=== PATIENT | male | born 1955 | race Caucasian/White ===

== ENCOUNTER → 2018-01-09 | Outpatient (CLI) | payer BC ==
[2018-01-09 09:30] LABS: HEMATOCRIT 39.6 % (42-52); HEMOGLOBIN 13.2 g/dL (14.0-18.0); MEAN CORPUSCULAR HEMOGLOBIN 28.3 pg (25-34); MEAN CORPUSCULAR HGB CONC 33.3 g/dl (32-36); MEAN PLATELET VOLUME 11.5 fL (7.4-10.4); PLATELET COUNT 194 K/uL (130-400); RED CELL DISTRIBUTION WIDTH CV 13.7 % (11.5-14.5); RED CELL DISTRIBUTION WIDTH SD 42.3 fL (36.4-46.3); WHITE BLOOD COUNT 4.48 K/uL (4.8-10.8)
[2018-01-09 09:58] LABS: ALBUMIN 3.6 gm/dl (3.4-5.0); ALKALINE PHOSPHATASE 38 U/L (45-117); ALT/SGPT 28 U/L (12-78); AST/SGOT 24 U/L (15-37); BLOOD UREA NITROGEN 13 mg/dl (7-18); CALCIUM 8.4 mg/dl (8.5-10.1); CARBON DIOXIDE 27 mmol/L (21-32); CHOLESTEROL 205 mg/dl (0-200); CREATININE 0.87 mg/dl (0.60-1.40); GLUCOSE 99 mg/dl (70-99); LDL CHOLESTEROL (DIRECT) 140 mg/dl; POTASSIUM 4.3 mmol/L (3.5-5.1); SODIUM 139 mmol/L (136-145); TOTAL PROTEIN 6.8 gm/dl (6.4-8.2)
== END | disposition home or self-care (01) ==
LOC: C.LAB 06:45
PROVIDERS: ATTEND Physician Assistant Medical
DX: C61 Malignant neoplasm of prostate (principal); C79.51 Secondary malignant neoplasm of bone; K22.719 Barrett's esophagus with dysplasia, unspecified; Z13.220 Encounter for screening for lipoid disorders

== ENCOUNTER 2020-10-03 20:04 | Inpatient (IN) ==
[2020-10-03] MEDS ORDERED: SODIUM CHLORIDE 0.9% 1000ML 1,000 ML IV STA (20:35)
[2020-10-03 21:28] LABS: Basophils # (auto) 0.01 K/uL (0-0.2); Basophils % (auto) 0.3 %; Eosinophils # (auto) 0.03 K/uL (0-0.5); Eosinophils % (auto) 0.9 %; Hematocrit (blood only) 28.8 % (42-52); Hemoglobin 9.4 g/dL (14.0-18.0); Immature Granulocytes # (auto) 0.02 K/uL (0.00-0.02); Immature Granulocytes % (auto) 0.6 %; Lymphocytes # (auto) 0.36 K/uL (1.2-3.4); Lymphocytes % (auto) 11.1 %; Mean Corpuscular Hemoglobin 29.2 pg (25-34); Mean Corpuscular Hgb Conc 32.6 g/dL (32-36); Mean Corpuscular Volume 89.4 fL (80-100); Mean Platelet Volume 8.6 fL (7.4-10.4); Monocytes # (auto) 0.61 K/uL (0.11-0.59); Monocytes % (auto) 18.9 %; Neutrophils % (auto) 68.2 %; Platelet Count 106 K/uL (130-400); RDW Coefficient of Variation 19.2 % (11.5-14.5); RDW Standard Deviation 63.6 fL (36.4-46.3); Red Blood Count 3.22 M/uL (4.7-6.1); White Blood Count 3.23 K/uL (4.8-10.8)
[2020-10-03 21:42] LABS: Alanine Aminotransferase 36 U/L (12-78); Albumin Level 2.6 gm/dl (3.4-5.0); Aspartate Aminotransferase 504 U/L (15-37); BUN Creatinine Ratio 22.9 (10-20); Blood Urea Nitrogen 14 mg/dl (7-18); Calcium 8.5 mg/dl (8.5-10.1); Carbon Dioxide 25 mmol/L (21-32); Chloride 103 mmol/L (98-107); Est GFR (African American) 124.9; Est GFR (Non-African American) 107.7; Glucose 112 mg/dl (70-99); Potassium 3.9 mmol/L (3.5-5.1); Sodium 134 mmol/L (136-145)
[2020-10-03 21:47] LABS: Albumin Globulin Ratio 0.7 (0.9-2); Alkaline Phosphatase 933 U/L (45-117); Bilirubin,Total 0.9 mg/dl (0.2-1); Globulin 3.5 gm/dl (2.5-4.0); Total Protein 6.1 gm/dl (6.4-8.2); Troponin I < 0.015 ng/ml (0-0.045)
[2020-10-03 22:10] LABS: Influenza A virus by PCR Negative (Neg); Influenza B virus by PCR Negative (Neg); RSV by PCR Negative (Neg); SARS CoV2 RNA(COVID-19) InHosp NEGATIVE (Negative)
[2020-10-03] MEDS ORDERED: OPTIRAY 320 150ml IV ONE (22:24)
[2020-10-03] MEDS ORDERED: KETOROLAC TROMETHAMINE 15 MG/ML VIAL IV ONE (22:54)
[2020-10-03] MEDS ORDERED: PIPERACILLIN/TAZOBACTAM 4.5 GM/120 ML BAG IV ONE (22:58)
[2020-10-03] MEDS ORDERED: PIPERACILL/TAZOBAC CONSULT ACTIVE PRN (22:58)
--- NOTE | 2020-10-04 02:09 | Emergency Department Note ---
History of Present Illness General Chief complaint: Fever Stated complaint: FEVER, DENTAL PAIN Time Seen by Provider: 10/03/20 20:33 Source: patient, family (At the bedside) and RN notes reviewed Mode of arrival: ambulatory Limitations: no limitations History of Present Illness Provider complaint: Fever, metastatic prostate cancer, jaw pain Maximum Pain Intensity: 5 This patient is a 65-year-old male who presents emergency department with complaints of fever. He states he noticed some mild discomfort in the left jaw where he has some chronic issues related to a tooth extraction and bony necrosis after chemotherapy. He is on chronic amoxicillin for infection in this area. Patient states he had a temperature of 101.5 degrees tonight. He did receive his Covid vaccines several weeks ago. He denies any known Covid exposures. He denies any shortness of breath, chest pain, cough. He admits to some occasional diarrhea. Home Medications Medication Instructions Recorded Confirmed Type gabapentin 100 mg PO TID 08/13/20 10/03/20 History lorazepam 1 mg PO HS PRN 08/13/20 10/03/20 History oxycodone 5 mg PO Q8H PRN 08/13/20 10/03/20 History Orgovyx 120 mg PO QPM 10/03/20 10/03/20 History ferrous sulfate 325 mg PO QPM 10/03/20 10/03/20 History folic acid 400 mcg PO QPM 10/03/20 10/03/20 History vitamin W80-patbj acid 1 tab PO QPM 10/03/20 10/03/20 History amoxicillin-pot clavulanate 1 tab PO BIDM 7 Days #14 tab 10/06/20 Rx [Augmentin] Allergies Allergy/AdvReac Type Severity Reaction Status Date / Time No Known Allergies Allergy Unverified 10/03/20 20:32 Past Med/Surg History Medical History (Updated 10/04/20 @ 03:46 by Burke Rincon MD) 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 and A total of 10 systems reviewed and were otherwise negative Physical Exam Vital Signs Vital Signs - 24 hr 10/03/20 20:06 10/03/20 22:05 10/04/20 00:00 Temperature 36.6 C 36.6 C Temperature Source Temporal Artery Scan Temporal Artery Scan Pulse Rate 102 H Pulse Rate [Apical] 97 H 95 H Pulse Rhythm [Apical] Regular Pulse Strength [Apical] Normal Respiratory Rate 18 18 18 Respiratory Effort / Characteristics Non-Labored Non-Labored Respiratory Depth Normal Normal Blood Pressure 98/59 L Blood Pressure [Right Arm] 122/55 L 111/65 Blood Pressure Mean 72 Blood Pressure Mean [Right Arm] 77 80 Blood Pressure Position [Right Arm] Pulse Oximetry 96 96 95 Oxygen Delivery Method Room Air Room Air Sepsis Recent Fever Within 48 Hours Yes Sepsis New/Unexplained Change in Mental Status No Sepsis Action Taken by Nursing No Action Required 10/04/20 02:00 10/04/20 02:09 Temperature 37.7 C H Temperature Source Oral Pulse Rate Pulse Rate [Apical] 92 H 97 H Pulse Rhythm [Apical] Pulse Strength [Apical] Respiratory Rate 18 Respiratory Effort / Characteristics Non-Labored Respiratory Depth Normal Blood Pressure Blood Pressure [Right Arm] 118/69 111/65 Blood Pressure Mean Blood Pressure Mean [Right Arm] 85 80 Blood Pressure Position [Right Arm] Lying Pulse Oximetry 99 93 Oxygen Delivery Method Room Air Sepsis Recent Fever Within 48 Hours Sepsis New/Unexplained Change in Mental Status Sepsis Action Taken by Nursing Vital signs reviewed. General: Chronically ill-appearing 65 yo male in no significant distress. HEENT: No scleral icterus, PERRLA, neck supple. Atraumatic. Cardiovascular: Regular rate and rhythm, no extra sounds. Pulmonary: Clear to auscultation bilaterally, normal work of breathing. Abdomen: Soft, nontender, nondistended, positive bowel sounds. Musculoskeletal: Atraumatic, no peripheral edema. Neurologic: Patient awake alert and oriented x 3 Skin: Warm, dry, no rash Course Administered Medications Discontinued Medications Acetaminophen (Acetaminophen 325 Mg Tab) 650 mg PO Q4H PRN PRN Reason: pain/fever Stop: 11/03/20 04:14 Last Admin: 10/06/20 14:22 Dose: 650 mg Documented by: [id number] Admin: 10/06/20 09:20 Dose: 650 mg Documented by: [id number] Admin: 10/06/20 04:43 Dose: 650 mg Documented by: [id number] Admin: 10/05/20 22:19 Dose: 650 mg Documented by: [id number] Admin: 10/05/20 15:21 Dose: 650 mg Documented by: [id number] Admin: 10/05/20 06:21 Dose: 650 mg Documented by: [id number] Admin: 10/04/20 21:22 Dose: 650 mg Documented by: [id number] Admin: 10/04/20 14:53 Dose: 650 mg Documented by: [id number] Admin: 10/04/20 05:11 Dose: 650 mg Documented by: [id number] Amoxicillin/Clavulanate Potassium (Amoxicillin/Clavulanate 875 Mg Tab) 1 tab PO BIDM JAYASHREE; Protocol Stop: 11/16/20 16:59 Last Admin: 10/06/20 16:03 Dose: 1 tab Documented by: [id number] Admin: 10/06/20 08:06 Dose: 1 tab Documented by: [id number] Admin: 10/05/20 17:56 Dose: 1 tab Documented by: [id number] Famotidine (Famotidine 20mg/5ml Iv Push) Confirm Administered Dose 20 mg IV .STK-MED ONE Stop: 10/04/20 04:00 Last Admin: 10/04/20 04:05 Dose: 20 mg Documented by: [id number] Ferrous Sulfate (Ferrous Sulfate 325 Mg Tab) 325 mg PO QPM [facility] Stop: 11/03/20 20:59 Last Admin: 10/05/20 19:57 Dose: 325 mg Documented by: [id number] Admin: 10/04/20 19:29 Dose: 325 mg Documented by: [id number] Folic Acid (Folic Acid 400 Mcg Tab) 400 mcg PO QPM [facility] Stop: 11/03/20 20:59 Last Admin: 10/05/20 19:57 Dose: 400 mcg Documented by: [id number] Admin: 10/04/20 19:29 Dose: 400 mcg Documented by: [id number] Gabapentin (Gabapentin 100 Mg Cap) 100 mg PO TID [facility] Stop: 11/03/20 08:59 Last Admin: 10/06/20 12:59 Dose: 100 mg Documented by: [id number] Admin: 10/06/20 09:16 Dose: 100 mg Documented by: [id number] Admin: 10/05/20 19:57 Dose: 100 mg Documented by: [id number] Admin: 10/05/20 16:04 Dose: 100 mg Documented by: [id number] Admin: 10/05/20 08:51 Dose: 100 mg Documented by: [id number] Admin: 10/04/20 19:29 Dose: 100 mg Documented by: [id number] Admin: 10/04/20 14:52 Dose: 100 mg Documented by: [id number] Admin: 10/04/20 09:20 Dose: 100 mg Documented by: [id number] Sodium Chloride (Nss 1000ml) 1,000 mls @ 999 mls/hr IV .Q1H1M STA Stop: 10/03/20 21:35 Last Infusion: 10/03/20 22:46 Dose: 0 mls/hr Documented by: [id number] Admin: 10/03/20 21:23 Dose: 999 mls/hr Documented by: [id number] Piperacillin Sod/Tazobactam Sod (Zosyn) 4.5 gm in 120 mls @ 240 mls/hr IV NOW ONE Stop: 10/03/20 23:27 Last Infusion: 10/03/20 23:48 Dose: 0 mls/hr Documented by: [id number] Admin: 10/03/20 23:06 Dose: 240 mls/hr Documented by: [id number] Famotidine 20 mg/ Syringe 5 mls @ 2.5 mls/min IV Q12H JAYASHREE Stop: 11/03/20 03:59 Last Admin: 10/06/20 16:03 Dose: 2.5 mls/min Documented by: [id number] Admin: 10/06/20 04:43 Dose: 2.5 mls/min Documented by: [id number] Admin: 10/05/20 16:04 Dose: 2.5 mls/min Documented by: [id number] Admin: 10/05/20 04:49 Dose: 2.5 mls/min Documented by: [id number] Admin: 10/04/20 16:40 Dose: 2.5 mls/min Documented by: [id number] Admin: 10/04/20 04:05 Dose: 2.5 mls/min Documented by: [id number] Piperacillin Sod/Tazobactam (Sod 3.375 gm/ Dextrose) 115 mls @ 30 mls/hr IV Q8H JAYASHREE; Protocol Stop: 10/11/20 04:29 Last Infusion: 10/05/20 15:55 Dose: 0 mls/hr Documented by: [id number] Admin: 10/05/20 13:46 Dose: 30 mls/hr Documented by: [id number] Infusion: 10/05/20 08:45 Dose: 0 mls/hr Documented by: [id number] Admin: 10/05/20 04:49 Dose: 30 mls/hr Documented by: [id number] Infusion: 10/05/20 00:29 Dose: 0 mls/hr Documented by: [id number] Admin: 10/04/20 19:23 Dose: 30 mls/hr Documented by: [id number] Infusion: 10/04/20 16:14 Dose: 0 mls/hr Documented by: [id number] Admin: 10/04/20 12:03 Dose: 30 mls/hr Documented by: [id number] Infusion: 10/04/20 09:19 Dose: 0 mls/hr Documented by: [id number] Admin: 10/04/20 05:06 Dose: 30 mls/hr Documented by: [id number] Vancomycin HCl 1,500 mg/ (Sodium Chloride) 530 mls @ 200 mls/hr IV ONE ONE Stop: 10/04/20 07:38 Last Infusion: 10/04/20 08:04 Dose: 0 mls/hr Documented by: [id number] Admin: 10/04/20 05:06 Dose: 200 mls/hr Documented by: [id number] Vancomycin HCl 1,000 mg/ (Sodium Chloride) 270 mls @ 200 mls/hr IV Q8H JAYASHREE Stop: 10/11/20 13:59 Last Infusion: 10/05/20 15:55 Dose: 0 mls/hr Documented by: [id number] Admin: 10/05/20 14:54 Dose: 200 mls/hr Documented by: [id number] Infusion: 10/05/20 06:29 Dose: 0 mls/hr Documented by: [id number] Admin: 10/05/20 04:59 Dose: 200 mls/hr Documented by: [id number] Infusion: 10/04/20 23:23 Dose: 0 mls/hr Documented by: [id number] Infusion: 10/04/20 22:54 Dose: 0 mls/hr Documented by: [id number] Admin: 10/04/20 21:23 Dose: 200 mls/hr Documented by: [id number] Infusion: 10/04/20 16:15 Dose: 0 mls/hr Documented by: [id number] Admin: 10/04/20 14:52 Dose: 200 mls/hr Documented by: [id number] Sincalide 1.53 mcg/ Sodium (Chloride) 101.53 mls @ 200 mls/hr IV TODAY@1400 JAYASHREE Stop: 10/04/20 14:31 Last Admin: 10/04/20 14:31 Dose: Not Given Documented by: [id number] Lactated Ringer's (Lr) 1,000 mls @ 250 mls/hr IV .Q4H JAYASHREE Stop: 10/05/20 12:59 Last Infusion: 10/05/20 15:49 Dose: 0 mls/hr Documented by: [id number] Infusion: 10/05/20 14:00 Dose: 250 mls/hr Documented by: [id number] Infusion: 10/05/20 13:47 Dose: 0 mls/hr Documented by: [id number] Admin: 10/05/20 10:37 Dose: 250 mls/hr Documented by: [id number] Ioversol (Optiray 320 150ml) 88 ml IV ONCE ONE Stop: 10/03/20 22:25 Last Admin: 10/03/20 22:24 Dose: 88 ml Documented by: [id number] Ketorolac Tromethamine (Ketorolac Tromethamine 15 Mg/Ml Vial) 10 mg IV NOW ONE Stop: 10/03/20 22:55 Last Admin: 10/03/20 23:07 Dose: 10 mg Documented by: [id number] Lorazepam (Lorazepam 1 Mg Tab) 1 mg PO HS PRN PRN Reason: appetite Stop: 11/03/20 04:20 Last Admin: 10/05/20 22:19 Dose: 1 mg Documented by: [id number] Admin: 10/04/20 14:59 Dose: 1 mg Documented by: [id number] Miscellaneous (Orgovyx~Order Awaiting Action) 1 ea N/A QS JAYASHREE Stop: 11/03/20 07:59 Last Admin: 10/06/20 15:46 Dose: Not Given Documented by: [id number] Admin: 10/06/20 08:02 Dose: Not Given Documented by: [id number] Admin: 10/05/20 23:10 Dose: Not Given Documented by: [id number] Admin: 10/05/20 15:59 Dose: Not Given Documented by: [id number] Admin: 10/05/20 07:39 Dose: Not Given Documented by: [id number] Admin: 10/05/20 00:28 Dose: Not Given Documented by: [id number] Admin: 10/04/20 14:54 Dose: Not Given Documented by: [id number] Admin: 10/04/20 08:04 Dose: Not Given Documented by: [id number] Morphine Sulfate (Morphine Sulfate 4 Mg/Ml 1 Ml Carp\Vial) 4 mg IV HS PRN PRN Reason: Pain Stop: 10/18/20 17:07 Last Admin: 10/05/20 01:42 Dose: 4 mg Documented by: [id number] Oxycodone HCl (Oxycodone Hcl Ir 5 Mg Tab (Immediate Release)) 5 mg PO Q8H PRN PRN Reason: Moderate Pain Stop: 10/18/20 04:21 Last Admin: 10/05/20 15:22 Dose: 5 mg Documented by: [id number] Admin: 10/05/20 06:20 Dose: 5 mg Documented by: [id number] Admin: 10/04/20 14:52 Dose: 5 mg Documented by: [id number] Admin: 10/04/20 04:54 Dose: 5 mg Documented by: [id number] Oxycodone HCl (Oxycodone Hcl Ir 5 Mg Tab (Immediate Release)) 10 mg PO Q6H PRN PRN Reason: Moderate Pain Stop: 10/18/20 04:21 Last Admin: 10/06/20 15:46 Dose: 10 mg Documented by: [id number] Admin: 10/06/20 09:19 Dose: 10 mg Documented by: [id number] Admin: 10/06/20 01:58 Dose: 10 mg Documented by: [id number] Admin: 10/05/20 19:56 Dose: 10 mg Documented by: [id number] Vitamin B Complex (Vitamin B Complex Tab) 1 tab PO QPM JAYASHREE Stop: 11/03/20 20:59 Last Admin: 10/05/20 19:57 Dose: 1 tab Documented by: [id number] Admin: 10/04/20 19:29 Dose: 1 tab Documented by: [id number] Medical Decision Making Differential Diagnosis .dd Laboratory Data Attestation: I reviewed the patient's lab results. Result diagrams: 10/06/20 06:35 10/06/20 06:35 Lab Results 10/03/20 10/03/20 10/03/20 Range/Units 21:05 21:05 21:12 WBC 3.23 L (4.8-10.8) K/uL RBC 3.22 L (4.7-6.1) M/uL Hgb 9.4 L (14.0-18.0) g/dL Hct 28.8 L (42-52) % MCV 89.4 (80-100) fL MCH 29.2 (25-34) pg MCHC 32.6 (32-36) g/dL RDW Std Deviation 63.6 H (36.4-46.3) fL RDW Coeff of Nadira 19.2 H (11.5-14.5) % Plt Count 106 L (130-400) K/uL MPV 8.6 (7.4-10.4) fL Immature Gran % (Auto) 0.6 % Neut % (Auto) 68.2 % Lymph % (Auto) 11.1 % Colbert % (Auto) 18.9 % Eos % (Auto) 0.9 % Baso % (Auto) 0.3 % Neut # (Auto) 2.20 (1.4-6.5) K/uL Lymph # (Auto) 0.36 L (1.2-3.4) K/uL Colbert # (Auto) 0.61 H (0.11-0.59) K/uL Eos # (Auto) 0.03 (0-0.5) K/uL Baso # (Auto) 0.01 (0-0.2) K/uL Immature Gran # (Auto) 0.02 (0.00-0.02) K/uL Sodium (136-145) mmol/L Potassium (3.5-5.1) mmol/L Chloride (98-107) mmol/L Carbon Dioxide (21-32) mmol/L Anion Gap (3-11) BUN (7-18) mg/dl Creatinine (0.6-1.4) mg/dl Est Cr Clr Drug Dosing ml/min Est GFR ( Amer) Est GFR (Non-Af Amer) BUN/Creatinine Ratio (10-20) Glucose (70-99) mg/dl Lactate (0.4-2.0) mmol/L Calcium (8.5-10.1) mg/dl Total Bilirubin (0.2-1) mg/dl AST (15-37) U/L ALT (12-78) U/L Alkaline Phosphatase (45-117) U/L Troponin I (0-0.045) ng/ml Total Protein (6.4-8.2) gm/dl Albumin (3.4-5.0) gm/dl Globulin (2.5-4.0) gm/dl Albumin/Globulin Ratio (0.9-2) COVID-19 Eval Order CovFluRsv at [facility] SARS-CoV-2 (PCR) NEGATIVE (Negative) Influenza Type A (PCR) Negative (Neg) Influenza Type B (PCR) Negative (Neg) RSV (RT-PCR) Negative (Neg) 10/03/20 10/03/20 Range/Units 21:12 21:12 WBC (4.8-10.8) K/uL RBC (4.7-6.1) M/uL Hgb (14.0-18.0) g/dL Hct (42-52) % MCV (80-100) fL MCH (25-34) pg MCHC (32-36) g/dL RDW Std Deviation (36.4-46.3) fL RDW Coeff of Nadira (11.5-14.5) % Plt Count (130-400) K/uL MPV (7.4-10.4) fL Immature Gran % (Auto) % Neut % (Auto) % Lymph % (Auto) % Colbert % (Auto) % Eos % (Auto) % Baso % (Auto) % Neut # (Auto) (1.4-6.5) K/uL Lymph # (Auto) (1.2-3.4) K/uL Colbert # (Auto) (0.11-0.59) K/uL Eos # (Auto) (0-0.5) K/uL Baso # (Auto) (0-0.2) K/uL Immature Gran # (Auto) (0.00-0.02) K/uL Sodium 134 L (136-145) mmol/L Potassium 3.9 (3.5-5.1) mmol/L Chloride 103 (98-107) mmol/L Carbon Dioxide 25 (21-32) mmol/L Anion Gap 7.0 (3-11) BUN 14 (7-18) mg/dl Creatinine 0.59 L (0.6-1.4) mg/dl Est Cr Clr Drug Dosing 124.0 ml/min Est GFR ( Amer) 124.9 Est GFR (Non-Af Amer) 107.7 BUN/Creatinine Ratio 22.9 H (10-20) Glucose 112 H (70-99) mg/dl Lactate 1.2 (0.4-2.0) mmol/L Calcium 8.5 (8.5-10.1) mg/dl Total Bilirubin 0.9 (0.2-1) mg/dl AST 504 H (15-37) U/L ALT 36 (12-78) U/L Alkaline Phosphatase 933 H (45-117) U/L Troponin I < 0.015 (0-0.045) ng/ml Total Protein 6.1 L (6.4-8.2) gm/dl Albumin 2.6 L (3.4-5.0) gm/dl Globulin 3.5 (2.5-4.0) gm/dl Albumin/Globulin Ratio 0.7 L (0.9-2) COVID-19 Eval Order SARS-CoV-2 (PCR) (Negative) Influenza Type A (PCR) (Neg) Influenza Type B (PCR) (Neg) RSV (RT-PCR) (Neg) Imaging Data Radiologist's Impression: XR chest 1V portable HISTORY: Fever COMPARISON: None. FINDINGS: Diffuse bilateral interstitial thickening/airspace opacities. Small bilateral pleural effusions.. There are low lung volumes. The heart is mildly enlarged. No pneumothorax. The bones appear diffusely sclerotic consistent with osteoblastic metastatic disease. IMPRESSION: 1. Cardiomegaly, small bilateral pleural effusions, and diffuse interstitial thickening. This favors pulmonary edema. An atypical pneumonia could also a similar appearance. 2. Diffuse osteoblastic metastatic disease. ACT 112: Negative or not required by law. Electronically signed by: Alexy Cook M.D. 10/04/2020 7:39 AM Dictated: 10/04/20 [id number]: 10/04/20737 CT SCAN OF THE FACIAL BONES WITH IV CONTRAST CLINICAL HISTORY: Left facial swelling. Chronic mandibular infection. COMPARISON STUDY: No priors. TECHNIQUE: High-resolution CT scan of the facial bones is performed following the IV administration of 88 cc of Optiray 320. Images are reviewed in the axial, sagittal, and coronal planes. IV contrast was administered without complication. A dose lowering technique was utilized adhering to the principles of ALARA. CT DOSE: 178.08 mGy.cm FINDINGS: The skeletal structures are heterogeneously osteopenic. The appearance suggests widespread osseous metastatic disease. There is an age indeterminant fracture/fragmentation through the left body of the mandible. This involves the socket of the most posterior mandibular molar. There is mild overlying soft tissue edema. No organized fluid collection is seen to suggest abscess. The bony orbits are intact and the orbital contents are within normal limits. The zygomatic arches, nasal bones, and pterygoid plates are preserved. The maxilla is intact. The temporomandibular joints are maintained. There are no layering blood products within the paranasal sinuses. Trace mucosal thickening is noted in the left frontal sinus. The remaining paranasal sinuses are clear. There are bilateral mastoid effusions, right larger than left. The visualized calvarium and upper cervical spine are maintained. Partially imaged brain parenchyma is within normal limits. IMPRESSION: 1. The skeletal structures are markedly heterogeneous, and the appearance suggests widespread osseous metastatic disease. Correlate with the patient's oncological history. 2. There is an age indeterminant fracture/fragmentation involving the left body of the mandible as above. This may represent a nonunited fracture. Superimposed infection would be impossible to exclude and clinical correlation will be essential. 3. There is only mild overlying soft tissue edema. No organized fluid collection is seen to suggest abscess. ACT 112: Negative or not required by law. Electronically signed by: Pa Ewing M.D. 10/04/2020 8:02 AM Dictated: 10/04/20 0756Transcribed: 10/04/[address] SCAN OF THE CHEST WITHOUT IV CONTRAST CLINICAL HISTORY: Abnormal chest x-ray. Pulmonary consolidation. Reported history of prostate cancer. COMPARISON STUDY: Chest x-ray dated 10/03/2020. TECHNIQUE: CT scan of the thorax was performed from the thoracic inlet to the upper abdomen. Images are reviewed in the axial, sagittal, and coronal planes. IV contrast was not administered for this examination as per the referring clinician. A dose lowering technique was utilized adhering to the principles of ALARA. CT DOSE: 422.86 mGy.cm FINDINGS: Thyroid: Imaged portions of the thyroid gland are normal in size and attenuation. Thoracic aorta: The thoracic aorta is normal in caliber and demonstrates bovine variant arch anatomy. Heart: The heart is mildly enlarged noting trace pericardial effusion. Lungs and pleural spaces: Evaluation of the lung parenchyma is compromised by motion artifact. There are small to moderate layering pleural effusions with associated atelectasis. Intralobular septal thickening is noted throughout the upper lobes. The trachea and central airways are clear. A 5 mm pleural-based nodule is seen in the right middle lobe along the minor fissure on image #181. A 5 mm right upper lobe nodular density is seen on image #87, and a 3 mm left lower lobe nodular density is seen on image #142.. Mediastinum: There are enlarged mediastinal lymph nodes. A pretracheal node measures 1.7 cm in short axis. A precarinal node measures 2.1 cm in short axis, and a subcarinal node measures 2.6 cm short axis. Anna: Not well assessed without IV contrast. Axillae: There is no axillary lymphadenopathy. Upper abdomen: There is a small hiatal hernia. The spleen is enlarged measuring over 14 cm in length. A subcentimeter cyst is incidentally noted in the left lobe of the liver. Skeletal structures: The skeletal structures are heterogeneously osteopenic. There is evidence of diffuse osteoblastic metastatic disease. Degenerative change and hyperkyphosis are noted in the thoracic spine. Question pathologic fracture of the right proximal humerus. There are pathologic left posterior rib fractures. IMPRESSION: 1. Cardiomegaly with evidence of congestive failure. 2. Small to moderate pleural effusions with bibasilar consolidation. This likely represents atelectasis and clinical correlation will be required. 3. Scattered pulmonary nodular densities measure up to 5 mm. See above. 4. There is evidence of diffuse osteoblastic metastatic disease. 5. Question pathologic fracture of the right proximal humerus. Pathologic fractures are also seen involving left posterior ribs. 6. Mediastinal lymphadenopathy. 7. Splenomegaly. 8. Additional findings as above. ACT 112: Negative or not required by law. Electronically signed by: Pa Ewing M.D. 10/04/2020 8:11 AM Dictated: 10/04/20802Transcribed: 10/04/20802 ECG Data Attestation: I personally reviewed and interpreted this ECG as follows: Indication: + other (fever) Rate (beats per minute): 92 Rhythm: + sinus rhythm ECG Intervals/blocks: + Normal QRS and + Normal QT-c ECG [place]: + Normal ECG ST segments: + Nonspecific ST abnormalities ECG Findings: + PACs; no PVCs Blood Pressure Blood Pressure Findings: Normal blood pressure Blood Pressure Disposition: did not require urgent referral MDM Narrative This patient was evaluated and appeared to be in no significant distress. IV access was obtained and laboratory work was drawn. An order for cardiac monitoring was placed and the patient is noted to be in a sinus rhythm at 95 bpm. Chest x-ray was performed and reveals evidence of congestive changes with bilateral pleural effusion. Patient has no respiratory compromise and is lying on his back on room air without any hypoxia. Patient is afebrile with T-max of 37 7. Covid swab was obtained and is negative. Patient was given 10 mg of IV Toradol for pain as he asked for ibuprofen. He was hydrated with normal saline solution and after blood cultures were performed, was given IV Zosyn for empiric coverage. CT imaging of the face was performed due to the chronic left mandibular osteomyelitis, the study is read as above. There is no obvious fluid collection. CT imaging of the chest was performed and does confirm metastatic disease in the bony structures. There are bilateral pleural effusions which I would presume to be malignant etiology. Given the complex nature of the case, patient was discussed with the hospitalist, Dr. King for further evaluation and management. Patient and have expressed understanding and agree. Impression & Plan Fever, Prostate cancer metastatic to bone, Chronic osteomyelitis of mandible, Bilateral pleural effusion Discharge Plan Visit Data Chief Complaint: Fever Stated Complaint: FEVER, DENTAL PAIN ED Provider: Dhara Atkins Discharge Problem: Fever, Prostate cancer metastatic to bone, Chronic osteomyelitis of mandible, Bilateral pleural effusion Patient Disposition: Admitted As Inpatient Discharge Instructions Interventions: ED Discharge Assessment Last Done: 10/04/20 04:02 Discharge Problem: Fever Qualifiers: Fever type: due to other condition Qualified Code(s): R50.81 - Fever presenting with conditions classified elsewhere
--- NOTE | 2020-10-04 02:49 | History & Physical Report ---
Date of Service October 04, 2020 Assessment & Plan (1) Chronic osteomyelitis of mandible: Acute on chronic osteomyelitis of mandible on left side- Place on vancomycin IV and Zosyn IV Hold amoxicillin which she has been on for chronic prophylaxis Present on Admission?: Yes (2) Gallbladder anomaly: Patient complains of nausea, and is tender epigastrium and right upper quadrant on examination. He also takes ibuprofen 3 to 4 tablets a day, so may have an issue with gastritis and/or gastric ulcer. Gallbladder was noted to be distended on CT HIDA scan ordered to further evaluate Famotidine 20 mg IV every 12 hours N.p.o. except essential medications Present on Admission?: Yes (3) Bilateral pleural effusion: Likely metastatic. Patient is not symptomatic at this point. Could consult pulmonology for their opinion as to the utility of drainage. Present on Admission?: Yes (4) Retroperitoneal lymphadenopathy: Pelvic and retroperitoneal lymphadenopathy- Noted on CT, suggestive of malignancy Present on Admission?: Yes (5) Pelvic lymphadenopathy: See above Present on Admission?: Yes (6) Prostate cancer metastatic to bone: Continue outpatient regimen Follows with oncology out of town Present on Admission?: Yes (7) Herniated disc: History of Present Illness Chief Complaint: The patient presents to the emergency department with complaint of fever to a max of 101.5 F, acute on chronic left jaw discomfort and nausea. Primary Care Provider: Yehuda Carrera DO The patient is a 65-year-old male with a past medical history including metastatic prostate cancer, anxiety, neuropathy and vitamin B12 deficiency. He reports having a dental infection a few years ago in his left mandibular area, for which he is on amoxicillin chronically for infection suppression. He had been doing well with his jaw until the past 24 hours where he has developed a temperature and worsening pain. Allergies Allergy/AdvReac Type Severity Reaction Status Date / Time No Known Allergies Allergy Unverified 10/03/20 20:32 Home Medications Medication Instructions Recorded Confirmed Type gabapentin 100 mg PO TID 08/13/20 10/03/20 History lorazepam 1 mg PO HS PRN 08/13/20 10/03/20 History oxycodone 5 mg PO Q8H PRN 08/13/20 10/03/20 History ferrous sulfate 325 mg PO QPM 10/03/20 10/03/20 History folic acid 400 mcg PO QPM 10/03/20 10/03/20 History relugolix [Orgovyx] 120 mg PO QPM 10/03/20 10/03/20 History vitamin R55-vthze acid 1 tab PO QPM 10/03/20 10/03/20 History Past Med/Surg History Medical History (Updated 10/04/20 @ 03:46 by Burke Rincon MD) Herniated disc L2-L3 Prostate cancer metastatic to bone Right foot injury drained blood from foot Social History (Updated 10/04/20 @ 03:00 by Dhara Atkins MD) Smoking Status: Never smoker Hx Alcohol Use: Yes Hx Substance Use: No Preferred Language: Ecuadorean Communication Ability: Effective Beliefs That Will Affect Care: None Current Living Situation: Significant Other current occupational status: retired Other Information That Helps Us Care for You: No Feels Safe at Home: Yes Assistive Devices: None Review of Systems Review of Systems: The patient denies chest pain, palpitations, shortness of breath, dyspnea on exertion, cough, lower extremity swelling, sore throat, chills, sweats, weight change, vomiting, diarrhea , constipation, pelvic pain, blood in urine or stool, dysuria, urinary frequency or urgency, lightheadedness, dizziness, headache, memory loss, loss of consciousness, rash, abnormal bruising or bleeding, imbalance, focal or generalized weakness, numbness or tingling in arms or legs, generalized arthralgias or myalgias, back or neck pain, or night sweats. The review of systems is otherwise negative other than for that already noted above, and at least 10 systems have been reviewed. Physical Exam Physical Exam: The patient is awake, alert and oriented 3, well developed and well nourished, normocephalic and atraumatic, lying in bed and in no acute distress. HEENT--PERRL, EOMI, mucous membranes and oropharynx dry. Neck--supple. No JVD. No bruits. Thyroid normal, trachea midline, no adenopathy. Heart--normal S1 and S2. No murmurs, rubs or gallops. Lungs--clear bilaterally, no respiratory distress, no accessory muscle use. Abdomen--normal bowel sounds and soft. Tender epigastric and right upper quadrant areas. Nondistended, no hernias or masses, no organomegaly. Extremities--no cyanosis or clubbing. No edema. Dermatologic--normal skin turgor, normal color, no abnormal lymph nodes, no rash. Neurologic--cranial nerves II through XII grossly intact. Rheumatologic--normal range of motion. Psychiatric--normal affect. Results & Data Results & Data ([facility]) Vital Signs (Past 12 Hours) Vital Signs Temp Pulse Pulse Resp BP BP Pulse Ox 10/04/20 02:09 99.9 F H 97 H 111/65 93 10/04/20 02:00 92 H 18 118/69 99 10/04/20 00:00 95 H 18 111/65 95 10/03/20 22:05 97.9 F 97 H 18 122/55 L 96 10/03/20 20:06 97.9 F 102 H 18 98/59 L 96 Laboratory Results Laboratory Results WBC 3.23 K/uL (4.8-10.8) L 10/03/20 21:12 RBC 3.22 M/uL (4.7-6.1) L 10/03/20 21:12 Hgb 9.4 g/dL (14.0-18.0) L 10/03/20 21:12 Hct 28.8 % (42-52) L 10/03/20 21:12 MCV 89.4 fL (80-100) 10/03/20 21:12 MCH 29.2 pg (25-34) 10/03/20 21:12 MCHC 32.6 g/dL (32-36) 10/03/20 21:12 RDW Std Deviation 63.6 fL (36.4-46.3) H 10/03/20 21:12 RDW Coeff of Nadira 19.2 % (11.5-14.5) H 10/03/20 21:12 Plt Count 106 K/uL (130-400) L 10/03/20 21:12 MPV 8.6 fL (7.4-10.4) 10/03/20 21:12 Immature Gran % (Auto) 0.6 % 10/03/20 21:12 Neut % (Auto) 68.2 % 10/03/20 21:12 Lymph % (Auto) 11.1 % 10/03/20 21:12 Stephenson % (Auto) 18.9 % 10/03/20 21:12 Eos % (Auto) 0.9 % 10/03/20 21:12 Baso % (Auto) 0.3 % 10/03/20 21:12 Neut # (Auto) 2.20 K/uL (1.4-6.5) 10/03/20 21:12 Lymph # (Auto) 0.36 K/uL (1.2-3.4) L 10/03/20 21:12 Stephenson # (Auto) 0.61 K/uL (0.11-0.59) H 10/03/20 21:12 Eos # (Auto) 0.03 K/uL (0-0.5) 10/03/20 21:12 Baso # (Auto) 0.01 K/uL (0-0.2) 10/03/20 21:12 Immature Gran # (Auto) 0.02 K/uL (0.00-0.02) 10/03/20 21:12 Sodium 134 mmol/L (136-145) L 10/03/20 21:12 Potassium 3.9 mmol/L (3.5-5.1) 10/03/20 21:12 Chloride 103 mmol/L (98-107) 10/03/20 21:12 Carbon Dioxide 25 mmol/L (21-32) 10/03/20 21:12 Anion Gap 7.0 (3-11) 10/03/20 21:12 BUN 14 mg/dl (7-18) 10/03/20 21:12 Creatinine 0.59 mg/dl (0.6-1.4) L 10/03/20 21:12 Est Cr Clr Drug Dosing 124.0 ml/min 10/03/20 21:12 Est GFR ( Amer) 124.9 10/03/20 21:12 Est GFR (Non-Af Amer) 107.7 10/03/20 21:12 BUN/Creatinine Ratio 22.9 (10-20) H 10/03/20 21:12 Glucose 112 mg/dl (70-99) H 10/03/20 21:12 Lactate 1.2 mmol/L (0.4-2.0) 10/03/20 21:12 Calcium 8.5 mg/dl (8.5-10.1) 10/03/20 21:12 Total Bilirubin 0.9 mg/dl (0.2-1) 10/03/20 21:12 AST 504 U/L (15-37) H 10/03/20 21:12 ALT 36 U/L (12-78) 10/03/20 21:12 Alkaline Phosphatase 933 U/L (45-117) H 10/03/20 21:12 Troponin I < 0.015 ng/ml (0-0.045) 10/03/20 21:12 Total Protein 6.1 gm/dl (6.4-8.2) L 10/03/20 21:12 Albumin 2.6 gm/dl (3.4-5.0) L 10/03/20 21:12 Globulin 3.5 gm/dl (2.5-4.0) 10/03/20 21:12 Albumin/Globulin Ratio 0.7 (0.9-2) L 10/03/20 21:12 COVID-19 Eval Order CovFluRsv at [facility] 10/03/20 21:05 SARS-CoV-2 (PCR) NEGATIVE (Negative) 10/03/20 21:05 Influenza Type A (PCR) Negative (Neg) 10/03/20 21:05 Influenza Type B (PCR) Negative (Neg) 10/03/20 21:05 RSV (RT-PCR) Negative (Neg) 10/03/20 21:05 Diagnostic Findings [facility] Patient: HAILY CLAIRE (Male) : 59 Status: ER Date: 10/04/20 01:29 Room #: History: ABNORMAL LFT'S, NAUSEA, WEAKNESS Slices: [phone] Priors: Tech: Davon Cruz @ [phone] Exams: CT ABDOMEN & PELVIS Without Contrast Contrast: Accession Numbers: [id number] Preliminary Findings Only See Final Report For Complete Findings CT ABDOMEN & PELVIS Without Contrast: Pelvic and retroperitoneal lymphadenopathy measuring up to short axis of 1.6 cm, concerning for malignancy. Gallbladder is distended without a radiopaque gallstone. Mild splenomegaly. Unchanged moderate bilateral pleural effusions. Diffuse irregular appearance of the axial and proximal appendicular skeleton as seen on concurrent CT chest. Additional consideration is widely metastatic prostate cancer. No hydronephrosis. No small bowel obstruction. Small volume of free fluid in the pelvis. Normal appendix. 8 mm hypodensity in the left hepatic lobe too small to characterize further but statistically likely to represent a simple cyst. Radiologist: Travis Mack MD Study ready at 01:34 and initial results transmitted at 02:14 *This report constitutes a preliminary interpretation only. Non-acute findings felt to be unrelated to the clinical presentation may not be discussed in this report. The study will be interpreted and a final report will be generated by the local Radiologist the following shift. To reach the hospital radiology department call [phone]. If a discrepancy is found between the preliminary and final interpretations of this study, please notify us via our Client Portal at [email or web address] under QA Exams.You can also fax this report with a description of the discrepancy, or include the final report, to our daytime fax number [phone].If faxing, please indicate the severity of discrepancy using one of the following categories: [ ] 1 - Agree/Informational [ ] 2 - Unlikely to Affect Management [ ] 3 - Possible Eventual Change of Management [ ] 4 - Probable Immediate Change of Management For all other patient related information, please fax us at [phone]. [id number] Code Status & VTE Plan Code Status Full code VTE Prophylaxis Plan VTE Prophylaxis will be ordered: Yes PG Care Time/CCT Total # of Minutes Spent Total Time Spent with Patient: Total time spent is greater than 50% in coordination of care (as documented) at patient's floor/unit and/or counseling patient: Coding Level of Care Code 15510 Initial Inpt Care Lvl 3 Diagnoses Chronic osteomyelitis of mandible M27.2 Gallbladder anomaly Q44.1 Bilateral pleural effusion J90 Retroperitoneal lymphadenopathy R59.0 Pelvic lymphadenopathy R59.0 Prostate cancer metastatic to bone C61; C79.51 Herniated disc
[2020-10-04] MEDS ORDERED: FAMOTIDINE 20MG/5ML IV PUSH IV ONE (03:59)
[2020-10-04] MEDS: FAMOTIDINE 20 MG in SYRINGE 3 ML IV SCH ×2 (04:05→16:40)
[2020-10-04] MEDS ORDERED: VANCOMYCIN HCL 1,000 MG in SODIUM CHLORIDE 0.9% 250 ML IV SCH (04:15)
[2020-10-04] MEDS ORDERED: ONDANSETRON INJ 2 MG/ML 2 ML VIAL IV PRN (04:15)
[2020-10-04] MEDS ORDERED: VANCOMYCIN CONSULT ACTIVE PRN (04:15)
[2020-10-04] MEDS ORDERED: PIPERACILL/TAZOBAC CONSULT ACTIVE PRN (04:15)
[2020-10-04] MEDS: oxyCODONE HCL IR 5 MG TAB (IMMEDIATE RELEASE) PO PRN ×2 (04:54→14:52)
[2020-10-04] MEDS ORDERED: VANCOMYCIN HCL 1,500 MG in SODIUM CHLORIDE 0.9% 500 ML IV ONE (05:00)
[2020-10-04] MEDS: PIPERACILLIN/TAZOBACTAM 3.375 GM in DEXTROSE 5% 100 ML IV SCH ×3 (05:06→19:23)
[2020-10-04] MEDS: ACETAMINOPHEN 325 MG TAB PO PRN ×3 (05:11→21:22)
--- NOTE | 2020-10-04 07:41 | XRay Report ---
XR chest 1V portable HISTORY: Fever COMPARISON: None. FINDINGS: Diffuse bilateral interstitial thickening/airspace opacities. Small bilateral pleural effus ions.. There are low lung volumes. The heart is mildly enlarged. No pneumothorax. The bones appear di ffusely sclerotic consistent with osteoblastic metastatic disease. IMPRESSION: 1. Cardiomegaly, small bilateral pleural effusions, and diffuse interstitial thickening. This favors pulmonary edema. An atypical pneumonia could also a similar appearance. 2. Diffuse osteoblastic metastatic disease. ACT 112: Negative or not required by law. Electronically signed by: Alexy Cook M.D. 10/04/2020 7:39 AM
--- NOTE | 2020-10-04 07:57 | Medical Student Progress Note ---
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 L jaw pain suspect osteomyelitis - Acute on chronic. He was previously on amoxicillin. - CT face: age indeterminate fracture involving L body of mandible. Skeletal structures are markedly heterogeneous that suggest osseous metastatic disease. Mild overlying soft tissue edema. - Blood cx pending - continue Zosyn and Vancomyin - Talked with Devi from 's office: she confirmed that pt is theirs. Per 's recommendation, okay to discharge patient on Augmentin for 7 days. Pt already scheduled for in-office follow up on October 18, but their office will call patient via phone to check in earlier. RUQ pain - Given initial presentation of fever, RUQ, and labs suspected biliary etiology such as acalculous cholecystitis, fibrosis, obstruction, sphincter of oddi dysfunction - 10/03 labs: AST 504 and alk phosp 933 - 10/04 HIDA scan: no evidence of cystic duct obstruction - continue famotidine 20mg - Discussed that this could be due to irritation from rib cartilage and a manifestation of his metastatic cancer. He is eating well with no N/V. B/L pleural effusion - suspect chronic due restricted chest wall movement - 93% O2 on RA. Metastatic (Stage 4) Prostate cancer - pain meds: oxycodone 5mg PO PRN, Tylenol 650mg PO PRN - continue relugolix (GnRH antagonist) Neuropathy - continue gabapentin 100mg TID Vitamin B12 Deficiency - continue ferrous sulfate, folic acid, and vit B12 (2) Chronic osteomyelitis of mandible: (3) Bilateral pleural effusion: (4) Fever: Fever type: due to other condition Qualified Code(s): R50.81 - Fever presenting with conditions classified elsewhere (5) Retroperitoneal lymphadenopathy: (6) Pelvic lymphadenopathy: (7) Gallbladder anomaly: (8) Herniated disc: Admission and Anticipated Discharge Date Admission Date: October 04, 2020 Supervising Attestation I have separately interviewed and evaluated the patient. I have discussed the case in depth with Pedro Stiles and agree with her plan as documented with the following exceptions. 65-year-old male with past medical history of metastatic prostate cancer on chemotherapy and chronic osteomyelitis of the mandible presented for evaluation of fevers, chills, nausea vomiting and pain. It was thought that the majority of patient's symptoms were secondary to infection in his jaw, he was started on vancomycin and Zosyn. Additionally on presentation CT scan of abdomen pelvis demonstrated abnormality within the gallbladder and a follow-up HIDA scan was ordered. Patient was admitted to the medicine service and did well overnight. Today he reports significant improvement in all of his symptoms. Endorsing some increased pain in the evening prior to bed requesting medication for that General: No acute distress HEENT: Normocephalic atraumatic Cardiac: Regular rate and rhythm, 1/6 murmur, did not appreciate significant rubs or gallops, normal S1, normal S2, negative pedal edema, no calf tenderness Respiratory: Clear to auscultation bilaterally with symmetrical chest expansion did not appreciate significant wheezes, rales, rhonchi GI: Soft nontender nondistended, subjective right upper quadrant pain A/P #Chronic osteomyelitis of the jaw Longstanding history of, follows with Dr. Lizzeth ceballos as an outpatient. Contacted Devi rolando nurse and Dr. Rodriguez's office today she reviewed the case with him. He is recommending the patient be discharged on a 7-day course of Augmentin and they will follow up with him after discharge to determine appropriate follow-up. We will continue to monitor vital signs and fever curve #Pain Likely related to metastatic disease. Patient states pain is currently well controlled with the exception of bedtime. We will provide as needed 4 mg morphine nightly #Gallbladder anomaly Visualized on CT scan -HIDA scan negative, suspect related to underlying metastatic disease Deepak Johnson MD PGY-2 Attending attestation Pt seen and examined in concert with [facility]. Dr. Go Dillon. In agreement with the documented findings as noted in the resident documentation with any exceptions or additions as noted here. Significant improvement in presenting symptoms following abx use. On examination, S1/S2 nl RRR, 2/6 DESTINY. CTAB. Abd TTP at bilateral ribs, LLQ which are chronic, but no reproducible RUQ pain. BS+ve. Chronic osteomyelitis of the jaw in the setting of metastatic prostate cancer - consult OMFS for discussion of underlying need for further management. Continue current abx regimen and f/u cultures. Right upper quadrant abdominal pain - unable to tolerate MRI of the abdomen 2/2 pain, but HIDA without suspicious lesion appreciated. With resolved symptoms, more likely osteomyelitis and managed as above. Else see student/resident documentation as noted. Subjective Pt presented to ED yesterday with fever and N/V. Prior to this, he reports feeling tired and run down for 3 days which he correlates to getting his camper ready for trip to [place]. Yesterday morning he started to feel nauseous after taking oxycodone prior to breakfast. He vomited a couple of time and starting feeling feverish with home temperature of 101. In the ED, his temperature was 99.8F and found to have pain in RUQ only with palpation and imaging showing b/l pleural effusion. He's never had this abdominal pain before and states that he ddidn't even notice it until palpation. Today, he is not feeling feverous. He has been NPO and is hungry. No jaw pain or swelling. No facial tenderness. Able to open jaw. No dysphagia. No DUFFY. He last saw his orofacial surgeon 1month ago and was put on amoxicillin. No abdominal pain. + constipation. Reports chronic SOB associated with restricted chest wall movement, back and neck pain No cough or wheezing. Reports losing over 40lbs within last year. Review of Systems Review of Systems: All systems reviewed & are unremarkable except as noted in HPI & below Physical Exam Physical Exam: General: AOx3. Thin male. Sitting comfortably in bed. Cooperative. HEENT: EOMI. Oral mucosa pink, uvula midline. Pharynx without exudate. No tenderness or deviation at TMJ. Popping elicit at TMJ when asked to open jaw. L oralExposed bone, no erythema, no abscess . Cervical LAD. Lungs: decrease breath sounds with late inspiratory crackles. Decrease inspiratory and expiratory. GI: Focal tenderness with palpation at R flank. No rebound tenderness. Negative Lucas sign. Results & Data ([facility]) Vital Signs (Past 12 Hours) Vital Signs Temp Pulse Pulse Resp BP BP Pulse Ox 10/04/20 04:15 36.5 C 20 124/73 96 10/04/20 02:09 37.7 C H 97 H 111/65 93 10/04/20 02:00 92 H 18 118/69 99 10/04/20 00:00 95 H 18 111/65 95 10/03/20 22:05 36.6 C 97 H 18 122/55 L 96 10/03/20 20:06 36.6 C 102 H 18 98/59 L 96 Resident Activity Tracking Resident Involvement: Resident Care Provided Care Provided: Adult Hospital Medicine
--- NOTE | 2020-10-04 08:00 | Pharmacy Report ---
Pharmacy Abx Initial Consult - Date of Service October 04, 2020 - Pharmacy Dosing Scope Date of Consult: 10/03/20 Consultation requested by: Dr. Rincon Pharmacy is consulted to initiate Vancomycin and Zosyn IV dosing therapy, order appropriate labs and adjust drug dose/frequency. - Subjective The patient is a 65 year old M admitted on 10/04/20 02:48. - Objective Height: 5 ft 8 in Weight: 76.5 kg Vital Signs (Past 12hrs): Vital Signs Temp Pulse Pulse Pulse Resp BP BP 10/04/20 07:47 37.3 C 93 H 16 103/64 10/04/20 04:15 36.5 C 20 124/73 10/04/20 02:09 37.7 C H 97 H 111/65 10/04/20 02:00 92 H 18 118/69 10/04/20 00:00 95 H 18 111/65 10/03/20 22:05 36.6 C 97 H 18 122/55 L 10/03/20 20:06 36.6 C 102 H 18 98/59 L Pulse Ox 10/04/20 07:47 93 10/04/20 04:15 96 10/04/20 02:09 93 10/04/20 02:00 99 10/04/20 00:00 95 10/03/20 22:05 96 10/03/20 20:06 96 Lab Results (24hrs): Laboratory Tests (24 Hours) 10/03/20 10/03/20 21:12 21:12 WBC 3.23 L Neut # (Auto) 2.20 Creatinine 0.59 L Est Cr Clr Drug Dosing 124.0 Micro Results: 10/03/20 21:12 Aerobic Blood Culture - Pending Blood Anaerobic Blood Culture - Pending 10/03/20 21:15 Aerobic Blood Culture - Pending Blood Anaerobic Blood Culture - Pending - Risk Factors for Resistance * Immunocompromised (oral immunomodulator) * Antimicrobial use within the last 90 days: Amoxicillin chronically - Assessment & Plan Assessment 65 year old M admitted secondary to fever and jaw discomfort * PMHx significant for prostate cancer with bone metastasis on Orgovyx at home. * Reports having a dental infection a few years ago in left mandibular area for which he takes amoxicillin chronically. * Reports a fever of 101.5oF at home and worsening jaw pain. * One time low grade fever around midnight of 99.9oF. WBCs 3.2k. SCr appears to be at baseline. Cultures are pending. Plan Vancomycin and Zosyn for treatment of Left Mandibular Osteomyelitis vs Cellulitis Vancomycin IV * Loading dose: 1500 mg (20 mg/kg) * Maintenance dose: 1000 mg IV (13 mg/kg) every 8 hours * Goal trough level: ~ 15 mcg/mL * Trough level ordered for 10/05/20 prior to the fourth maintenance dose to represent steady state levels Piperacillin/tazobactam * 4.5 g bolus administered over 30 minutes, then 3.375 g IV extended infusion every 8 hours for CrCl greater than 20 mL/min Pharmacy will continue to follow and will adjust dose/frequency as necessary. Thank you.
--- NOTE | 2020-10-04 08:04 | CT Scan Report ---
CT SCAN OF THE FACIAL BONES WITH IV CONTRAST CLINICAL HISTORY: Left facial swelling. Chronic mandibular infection. COMPARISON STUDY: No priors. TECHNIQUE: High-resolution CT scan of the facial bones is performed following the IV administration of 88 cc of Optiray 320. Images are reviewed in the axial, sagittal, and coronal planes. IV contrast was administered without complication. A dose lowering technique was utilized adhering to the princi ples of ALA. CT DOSE: 178.08 mGy.cm FINDINGS: The skeletal structures are heterogeneously osteopenic. The appearance suggests widespread osseous metastatic disease. There is an age indeterminant fracture/fragmentation through the left bod y of the mandible. This involves the socket of the most posterior mandibular molar. There is mild ove rlying soft tissue edema. No organized fluid collection is seen to suggest abscess. The bony orbits a re intact and the orbital contents are within normal limits. The zygomatic arches, nasal bones, and p terygoid plates are preserved. The maxilla is intact. The temporomandibular joints are maintained. Th ere are no layering blood products within the paranasal sinuses. Trace mucosal thickening is noted in the left frontal sinus. The remaining paranasal sinuses are clear. There are bilateral mastoid effus ions, right larger than left. The visualized calvarium and upper cervical spine are maintained. Parti ally imaged brain parenchyma is within normal limits. IMPRESSION: 1. The skeletal structures are markedly heterogeneous, and the appearance suggests widespread osseous metastatic disease. Correlate with the patient's oncological history. 2. There is an age indeterminant fracture/fragmentation involving the left body of the mandible as ab ove. This may represent a nonunited fracture. Superimposed infection would be impossible to exclude a nd clinical correlation will be essential. 3. There is only mild overlying soft tissue edema. No organized fluid collection is seen to suggest a bscess. ACT 112: Negative or not required by law. Electronically signed by: Pa Ewing M.D. 10/04/2020 8:02 AM
--- NOTE | 2020-10-04 08:13 | CT Scan Report ---
CT SCAN OF THE CHEST WITHOUT IV CONTRAST CLINICAL HISTORY: Abnormal chest x-ray. Pulmonary consolidation. Reported history of prostate cancer. COMPARISON STUDY: Chest x-ray dated 10/03/2020. TECHNIQUE: CT scan of the thorax was performed from the thoracic inlet to the upper abdomen. Images are reviewed in the axial, sagittal, and coronal planes. IV contrast was not administered for this ex amination as per the referring clinician. A dose lowering technique was utilized adhering to the quique dong of JOSEPHINE. CT DOSE: 422.86 mGy.cm FINDINGS: Thyroid: Imaged portions of the thyroid gland are normal in size and attenuation. Thoracic aorta: The thoracic aorta is normal in caliber and demonstrates bovine variant arch anatomy. Heart: The heart is mildly enlarged noting trace pericardial effusion. Lungs and pleural spaces: Evaluation of the lung parenchyma is compromised by motion artifact. There are small to moderate layering pleural effusions with associated atelectasis. Intralobular septal thi ckening is noted throughout the upper lobes. The trachea and central airways are clear. A 5 mm pleura l-based nodule is seen in the right middle lobe along the minor fissure on image #181. A 5 mm right u pper lobe nodular density is seen on image #87, and a 3 mm left lower lobe nodular density is seen on image #142.. Mediastinum: There are enlarged mediastinal lymph nodes. A pretracheal node measures 1.7 cm in short axis. A precarinal node measures 2.1 cm in short axis, and a subcarinal node measures 2.6 cm short ax is. Anna: Not well assessed without IV contrast. Axillae: There is no axillary lymphadenopathy. Upper abdomen: There is a small hiatal hernia. The spleen is enlarged measuring over 14 cm in length. A subcentimeter cyst is incidentally noted in the left lobe of the liver. Skeletal structures: The skeletal structures are heterogeneously osteopenic. There is evidence of dif fuse osteoblastic metastatic disease. Degenerative change and hyperkyphosis are noted in the thoracic spine. Question pathologic fracture of the right proximal humerus. There are pathologic left posteri or rib fractures. IMPRESSION: 1. Cardiomegaly with evidence of congestive failure. 2. Small to moderate pleural effusions with bibasilar consolidation. This likely represents atelectas is and clinical correlation will be required. 3. Scattered pulmonary nodular densities measure up to 5 mm. See above. 4. There is evidence of diffuse osteoblastic metastatic disease. 5. Question pathologic fracture of the right proximal humerus. Pathologic fractures are also seen inv olving left posterior ribs. 6. Mediastinal lymphadenopathy. 7. Splenomegaly. 8. Additional findings as above. ACT 112: Negative or not required by law. Electronically signed by: Pa Ewing M.D. 10/04/2020 8:11 AM
--- NOTE | 2020-10-04 08:55 | CT Scan Report ---
ABDOMEN AND PELVIS CT WITHOUT CONTRAST CT DOSE: 413.25 mGy.cm HISTORY: abnormal LFT's, nausea TECHNIQUE: Multiaxial CT images of the abdomen and pelvis were performed without contrast. A dose lo wering technique was utilized adhering to the principles of ALARA. COMPARISON STUDY: Chest CT 10/03/2020. FINDINGS: Moderate bilateral pleural effusions and interlobular septal thickening consistent with pul monary edema. Patchy densities within the lower lobes posteriorly. This may represent atelectasis fro m the pleural effusions or pneumonia. Subcentimeter nodules within the lung bases are better apprecia antonio on the recent chest CT. No pneumoperitoneum. No pneumatosis. There is diffuse osteoblastic metast atic disease. There is a pathologic left posterior 12th rib fracture. This is likely subacute. A 1 cm hypodense lesion within the left hepatic lobe. This favors a cyst. The gallbladder, pancreas, spleen , and adrenal glands unremarkable. No hydronephrosis. Mild retroperitoneal lymphadenopathy and retrop eritoneal fat stranding. There is also left-sided pelvic lymphadenopathy with associated fat strandin g. Dominant left pelvic lymph node measures 3 cm. Moderate bladder wall thickening. Presacral edema i s noted. Suboptimal evaluation for bowel pathology due to the lack of intravenous and oral contrast. However, there is no definite bowel wall thickening or obstruction. Moderate well-formed stool seen w ithin the colon. Normal appendix. IMPRESSION: 1. Diffuse osteoblastic metastatic disease. There is a healing pathologic left posterior 12th rib fra cture. 2. Retroperitoneal and pelvic lymphadenopathy as described above. 3. Moderate bilateral pleural effusions and interstitial thickening at the lung bases suggestive of p ulmonary edema. 4. Additional findings as described above. ACT 112: Negative or not required by law. Electronically signed by: Alexy Cook M.D. 10/04/2020 8:54 AM
[2020-10-04] MEDS: GABAPENTIN 100 MG CAP PO SCH ×3 (09:20→19:29)
[2020-10-04] MEDS ORDERED: SINCALIDE IV SCH (14:00)
[2020-10-04] MEDS ORDERED: SODIUM CHLORIDE 0.9% IV SCH (14:00)
--- NOTE | 2020-10-04 14:34 | Nuclear Medicine Report ---
NM hepatobiliary CLINICAL HISTORY: NAUSEA distended gallbladder COMPARISON STUDY: CT scan dated 10/04/2020 FINDINGS: Patient was injected with 5.7 mCi of technetium 99m Choletec. Sequential anterior images we re acquired. Hepatic excretion appeared unremarkable. The gallbladder was first visualized at 15 [address] te image. There are suspected bilateral reflux into the stomach. There is no common bile duct obstruc tion. The patient was unable to tolerate additional imaging and ejection fraction study was not perfo rmed. IMPRESSION: No evidence of cystic duct obstruction. ACT 112: Negative or not required by law. Electronically signed by: Chavo Read M.D. 10/04/2020 2:33 PM
[2020-10-04] MEDS: VANCOMYCIN HCL 1,000 MG in SODIUM CHLORIDE 0.9% 250 ML IV SCH ×2 (14:52→21:23)
[2020-10-04] MEDS: LORazepam 1 MG TAB PO PRN (14:59)
[2020-10-04] MEDS ORDERED: MoRPHine SULFATE 4 MG/ML 1 ML CARP\\VIAL IV PRN (17:08)
--- NOTE | 2020-10-04 17:32 | Electrocardiogram Report ---
Test Reason : Blood Pressure : / mmHG Vent. Rate : 092 BPM Atrial Rate : 092 BPM P-R Int : 134 ms QRS Dur : 086 ms QT Int : 346 ms P-R-T Axes : -01 009 026 degrees QTc Int : 427 ms Sinus rhythm with Premature atrial complexes Otherwise normal ECG No previous ECGs available Confirmed by Ever Ramirez ([id number]) on 10/04/2020 5:31:59 PM Referred By: REFERRED SELF Confirmed By:Ortega Ramirez
[2020-10-04] MEDS: VITAMIN B COMPLEX TAB PO SCH (19:29)
[2020-10-04] MEDS: FERROUS SULFATE 325 MG TAB PO SCH (19:29)
[2020-10-04] MEDS: FOLIC ACID 400 MCG TAB PO SCH (19:29)
[2020-10-05] MEDS: PIPERACILLIN/TAZOBACTAM 3.375 GM in DEXTROSE 5% 100 ML IV SCH ×2 (04:49→13:46)
[2020-10-05] MEDS: FAMOTIDINE 20 MG in SYRINGE 3 ML IV SCH ×2 (04:49→16:04)
[2020-10-05] MEDS: VANCOMYCIN HCL 1,000 MG in SODIUM CHLORIDE 0.9% 250 ML IV SCH ×2 (04:59→14:54)
[2020-10-05] MEDS: oxyCODONE HCL IR 5 MG TAB (IMMEDIATE RELEASE) PO PRN ×3 (06:20→19:56)
[2020-10-05] MEDS: ACETAMINOPHEN 325 MG TAB PO PRN ×3 (06:21→22:19)
--- NOTE | 2020-10-05 07:36 | Discharge Summary ---
Date of Service October 05, 2020 Admission HPI Per Admitting Provider The patient is a 65-year-old male with a past medical history including metastatic prostate cancer, anxiety, neuropathy and vitamin B12 deficiency. He reports having a dental infection a few years ago in his left mandibular area, for which he is on amoxicillin chronically for infection suppression. He had been doing well with his jaw until the past 24 hours where he has developed a temperature and worsening pain. Admission Exam Per Admitting Provider The patient is awake, alert and oriented 3, well developed and well nourished, normocephalic and atraumatic, lying in bed and in no acute distress. HEENT--PERRL, EOMI, mucous membranes and oropharynx dry. Neck--supple. No JVD. No bruits. Thyroid normal, trachea midline, no adenopathy . Heart--normal S1 and S2. No murmurs, rubs or gallops. Lungs--clear bilaterally, no respiratory distress, no accessory muscle use. Abdomen--normal bowel sounds and soft. Tender epigastric and right upper quadrant areas. Nondistended, no hernias or masses, no organomegaly. Extremities--no cyanosis or clubbing. No edema. Dermatologic--normal skin turgor, normal color, no abnormal lymph nodes, no rash. Neurologic--cranial nerves II through XII grossly intact. Rheumatologic--normal range of motion. Psychiatric--normal affect. Principal Diagnosis Acute on chronic osteomyelitis complicated by history of metastatic prostate cancer, chronic pain Discharge Data Allergies Allergy/AdvReac Type Severity Reaction Status Date / Time No Known Allergies Allergy Unverified 10/03/20 20:32 Consultations 10/04/20 00:15 ED Decision to Admit Stat Ordered Studies 10/03/20 21:14 CT facial bones w con Urgent 10/03/20 22:51 CT chest diagnostic wo con Urgent 10/04/20 00:40 CT abd pelvis wo con Urgent Hospital Course (1) Prostate cancer metastatic to bone: (2) Chronic osteomyelitis of mandible: (3) Bilateral pleural effusion: (4) Fever: (5) Retroperitoneal lymphadenopathy: (6) Pelvic lymphadenopathy: (7) Gallbladder anomaly: (8) Herniated disc: Discharge Plan Discharge Items Reason For Visit: OSTEO OF MANDIBLE, MET PROSTATE CA, NAUSEA Discharge Diagnosis: Acute on chronic osteomyelitis complicated by history of metastatic prostate cancer, chronic pain Follow-up/Referrals: Yehuda Carrera DO [Primary Care Provider] - Medications and DC Order Prescriptions: No Action gabapentin 100 mg Capsule 100 mg PO TID RF: 0 lorazepam 1 mg Tablet 1 mg PO HS PRN (Reason: appetite) RF: 0 oxycodone 5 mg Tablet 5 mg PO Q8H PRN (Reason: Pain) RF: 0 folic acid 400 mcg Tablet 400 mcg PO QPM RF: 0 ferrous sulfate 325 mg (65 mg iron) Tablet 325 mg PO QPM RF: 0 vitamin A67-njcsl acid 500-400 mcg Tablet 1 tab PO QPM RF: 0 Orgovyx 120 mg Tablet 120 mg PO QPM RF: 0 Admission Data Admit Date/Time: 10/04/20 02:48 Attending Provider: Rudy Reeves Admit Provider: Burke Rincon Primary Care Provider: Yehuda Carrera Other Providers: Burke Rincon
[2020-10-05 08:00] LABS: Eosinophils # (auto) 0.02 K/uL (0-0.5); Eosinophils % (auto) 0.6 %; Hematocrit (blood only) 23.4 % (42-52); Hemoglobin 7.8 g/dL (14.0-18.0); Immature Granulocytes # (auto) 0.02 K/uL (0.00-0.02); Immature Granulocytes % (auto) 0.6 %; Lymphocytes # (auto) 0.37 K/uL (1.2-3.4); Lymphocytes % (auto) 10.8 %; Mean Corpuscular Hemoglobin 29.5 pg (25-34); Mean Corpuscular Hgb Conc 33.3 g/dL (32-36); Mean Corpuscular Volume 88.6 fL (80-100); Mean Platelet Volume 9.2 fL (7.4-10.4); Monocytes # (auto) 0.61 K/uL (0.11-0.59); Monocytes % (auto) 17.8 %; Neutrophils # (auto) 2.41 K/uL (1.4-6.5); Neutrophils % (auto) 70.2 %; Platelet Count 104 K/uL (130-400); RDW Coefficient of Variation 19.1 % (11.5-14.5); RDW Standard Deviation 62.4 fL (36.4-46.3); Red Blood Count 2.64 M/uL (4.7-6.1); White Blood Count 3.43 K/uL (4.8-10.8)
[2020-10-05 08:25] LABS: Albumin Level 2.2 gm/dl (3.4-5.0); BUN Creatinine Ratio 25.4 (10-20); Calcium 8.3 mg/dl (8.5-10.1); Est GFR (African American) 130.5; Est GFR (Non-African American) 112.6; Potassium 3.4 mmol/L (3.5-5.1)
[2020-10-05 08:28] LABS: Albumin Globulin Ratio 0.7 (0.9-2); Bilirubin,Total 0.7 mg/dl (0.2-1); Globulin 3.2 gm/dl (2.5-4.0); Total Protein 5.4 gm/dl (6.4-8.2)
[2020-10-05] MEDS: GABAPENTIN 100 MG CAP PO SCH ×3 (08:51→19:57)
[2020-10-05] MEDS ORDERED: LACTATED RINGER'S 1,000 ML IV SCH (09:00)
[2020-10-05] MEDS ORDERED: VANCOMYCIN TROUGH SCH (13:30)
[2020-10-05 14:03] LABS: Hemoglobin 8.4 g/dL (14.0-18.0)
--- NOTE | 2020-10-05 15:33 | Hospitalist Progress Note ---
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 L jaw pain suspect osteomyelitis Acute on chronic. He was previously on amoxicillin. CT face: age indeterminate fracture involving L body of mandible. Skeletal structures are markedly heterogeneous that suggest osseous metastatic disease. Mild overlying soft tissue edema. Spoke with Devi from 's office: she confirmed that pt is theirs. Per 's recommendation, okay to discharge patient on Augmentin for 7 days. Pt already scheduled for in-office follow up on October 18, but their office will call patient via phone to check in earlier. - Blood cx pending - DC Zosyn and Vanco start Augmentin 875 twice daily RUQ pain Given initial presentation of fever, RUQ, and labs suspected biliary etiology such as acalculous cholecystitis, fibrosis, obstruction, sphincter of oddi dysfunction. Patient reports being on a novel chemotherapeutic regimen including testosterone. When he receives a testosterone injection his bone pain is supposed to increase significantly, given the negative work-up thus far, negative HIDA scan on 10/04, and acute elevation in alk phos suspect pain is secondary to chemotherapy. -Continue pain control with oxycodone 5 mg p.o. every 8 hours as needed and morphine as needed at bedtime Acute drop in hemoglobin Baseline hemoglobin is between 10 and 11, patient's hemoglobin acutely dropped overnight from 9.4-7.8, repeat H&H in the afternoon demonstrating 8.4. Patient states he has a history of acute drops in his hemoglobin secondary to his cancer therapy. Given the complexity of this patient's chemotherapeutic regimen, and hematological abnormalities we have consulted hematology oncology for further assistance -Consult hematology oncology -trend hgb: 9.4 -> 7.8 -> 8.4 B/L pleural effusion suspect chronic due restricted chest wall movement, likely representing metastatic disease - 93% O2 on RA. As needed O2 as needed Metastatic (Stage 4) Prostate cancer - pain meds: oxycodone 5mg PO PRN, Tylenol 650mg PO PRN - continue relugolix (GnRH antagonist) - As above Neuropathy - continue gabapentin 100mg TID Vitamin B12 Deficiency - continue ferrous sulfate, folic acid, and vit B12 FENa: Regular diet Code Status: Full code DVT PPX: Contraindicated PT/OT: Not indicated at present Dispo: Gerson Johnson MD PGY 2, FCM This chart was completed utilizing enVista voice recognition software. Grammatical errors, random word insertions, pronoun errors, and in complete sentences are an occasional consequence of the system. Any questions or concerns about the content, text, or information contained within the body of this dictation should be addressed directly to the physician for clarification. Admission and Anticipated Discharge Date Admission Date: October 04, 2020 Supervising Physician Co-Signing Physician Notes Attending attestation Pt seen and examined in concert with Dr. Johnson. In agreement with the documented findings as noted in the resident documentation with any exceptions or additions as noted here. Abdominal pain resolved and has not returned, no change in jaw. Chronic diffuse bone pain which has worsened since the christian of testosterone therapy for metastatic prostate disease to bone which is normally improved with ambulation and home pain management regimen but somewhat more notable today because has been in fixed position. On examination, S1/S2 nl RRR no MCG. CTAB. Abd NT/ND BS+ve Acute on chronic anemia - unknown etiology though per patient history does have intermittent hemoglobin drops with chemo/testosterone therapy/marrow impact of metastatic prostate disease which has required transfusions in the past. Patient with PO iron supplementation which limits utility of guiac but w/o sx of GIB. Repeat Hgb today was stable at 8.4 (though still decreased from previous). Hematology consultation appreciated for guidance for same - transfuse and monitor vs. GI evaluation. Left jaw chronic osteomyelitis - previously on suppressive therapy w/ amox. BCx still pending. Continue IV abx until [id number] then transition to PO augmentin RUQ pain - returned to baseline rib pain with negative HIDA and CT without significant findings. Continue baseline pain management. Else see resident documentation as noted. Subjective Patient lying in bed this morning in no acute distress. Patient had an acute hemoglobin drop 2 points overnight, denies any history of hematochezia, melena, dizziness, headache, fatigue, weakness. Patient reports tolerating his diet, voiding, stooling, slept well overnight. Patient is eager for discharge, we have explained the patient repeatedly given his hemoglobin drops below need to stay overnight for further evaluation by hematology oncology. Patient voiced being agreeable to this. Results & Data Results & Data ([facility]) Vital Signs (Past 12 Hours) Vital Signs Temp Pulse Resp BP Pulse Ox 10/05/20 08:31 36.8 C 86 16 106/63 93 Resident Activity Tracking Resident Involvement: Resident Care Provided Care Provided: Adult Hospital Medicine
[2020-10-05] MEDS: AMOXICILLIN/CLAVULANATE 875 MG TAB PO SCH (17:56)
[2020-10-05] MEDS: FERROUS SULFATE 325 MG TAB PO SCH (19:57)
[2020-10-05] MEDS: FOLIC ACID 400 MCG TAB PO SCH (19:57)
[2020-10-05] MEDS: VITAMIN B COMPLEX TAB PO SCH (19:57)
[2020-10-05] MEDS: LORazepam 1 MG TAB PO PRN (22:19)
[2020-10-06] MEDS: oxyCODONE HCL IR 5 MG TAB (IMMEDIATE RELEASE) PO PRN ×3 (01:58→15:46)
[2020-10-06] MEDS: ACETAMINOPHEN 325 MG TAB PO PRN ×3 (04:43→14:22)
[2020-10-06] MEDS: FAMOTIDINE 20 MG in SYRINGE 3 ML IV SCH ×2 (04:43→16:03)
[2020-10-06 06:57] LABS: Eosinophils # (auto) 0.02 K/uL (0-0.5); Eosinophils % (auto) 0.6 %; Hematocrit (blood only) 23.3 % (42-52); Hemoglobin 7.6 g/dL (14.0-18.0); Immature Granulocytes # (auto) 0.02 K/uL (0.00-0.02); Immature Granulocytes % (auto) 0.6 %; Lymphocytes # (auto) 0.48 K/uL (1.2-3.4); Lymphocytes % (auto) 14.5 %; Mean Corpuscular Hgb Conc 32.6 g/dL (32-36); Mean Corpuscular Volume 88.9 fL (80-100); Mean Platelet Volume 8.8 fL (7.4-10.4); Monocytes # (auto) 0.44 K/uL (0.11-0.59); Monocytes % (auto) 13.3 %; Neutrophils # (auto) 2.35 K/uL (1.4-6.5); Platelet Count 105 K/uL (130-400); RDW Standard Deviation 61.9 fL (36.4-46.3); Red Blood Count 2.62 M/uL (4.7-6.1); White Blood Count 3.31 K/uL (4.8-10.8)
[2020-10-06 07:23] LABS: Echinocytes 1+; Polychromasia 1+; Tear Drop Cells 1+
[2020-10-06 07:33] LABS: BUN Creatinine Ratio 23.2 (10-20); Calcium 8.5 mg/dl (8.5-10.1); Creatinine Clr Calc Pharmacy 155.6 ml/min; Est GFR (African American) 137.1; Est GFR (Non-African American) 118.3; Potassium 3.6 mmol/L (3.5-5.1)
[2020-10-06 07:36] LABS: Albumin Globulin Ratio 0.5 (0.9-2); Bilirubin,Total 0.4 mg/dl (0.2-1); Globulin 3.8 gm/dl (2.5-4.0); Total Protein 5.8 gm/dl (6.4-8.2)
--- NOTE | 2020-10-06 07:38 | Consultation Report ---
DATE OF CONSULTATION: 10/06/2020 MEDICAL ONCOLOGY CONSULTATION REASON FOR CONSULTATION: Metastatic prostate cancer. (Bone Marrow involvement) HISTORY OF PRESENT ILLNESS: The patient is a pleasant 65-year-old gentleman who follows at [facility], but predominantly receives his treatment through [facility] for metastatic prostate cancer. The patient has been battling with a chronic left jaw irritation formally diagnosed with osteonecrosis of the jaw, status post tooth extraction and chronic periodontal infection for which he takes amoxicillin. Apparently over the past 24 hours, developed fever and worsening pain necessitating admission to hospital. Again, this gentleman suffers from stage IV adenocarcinoma of the prostate and recently had a therapy change, specifically ordered by Dr. Pretty at the [facility] consisting of Orgovyx and Xtandi orally. This gentleman had been receiving immune therapy through consultants at the [facility] up until August of 2020. Mr. Suresh battles with chronic anemia necessitating 2 units packed RBCs a couple of weeks ago. He predominantly is followed by the physician graphic manager here at [facility] and was last seen in late August. According to Harmony Mar's note, this gentleman is deficient in iron, folate, and B12. His most recent radiographic study in June of 2020 revealed worsening metastatic disease with development of two new small pulmonary nodules and progressive extensive osseous metastatic disease. Mr. Suresh was on immune therapy for a brief period of time in August of 2020 and subsequently sought consultation with Dr. Pretty at [facility] and hence started him on Orgovyx and Xtandi, which is his current therapy. Thus staff at [facility] are supporting Mr. Suresh with symptoms and treating anemia as necessary with elemental supplementation. PAST MEDICAL HISTORY: Again is significant for metastatic prostate cancer, chronic osteomyelitis of the mandible, osteonecrosis of the jaw, gallbladder anomaly, bilateral pleural effusions, retroperitoneal lymphadenopathy, metastatic prostate cancer. CURRENT MEDICATIONS: Include vitamin B12 one tablet p.o. every day, relugolix 120 mg p.o. daily, folic acid 400 mcg p.o. daily, ferrous sulfate 325 mg p.o. daily, oxycodone 5 mg p.o. q. 8 hours p.r.n., lorazepam 1 mg p.o. at bedtime p.r.n., gabapentin 100 mg p.o. t.i.d. ALLERGIES: No known drug allergies. SOCIAL HISTORY: The patient lives with his significant other. He is a nonsmoker. He does consume alcohol on social occasions. FAMILY HISTORY: Noncontributory. REVIEW OF SYSTEMS: CONSTITUTIONAL: As per HPI, negative for current fevers, chills, or sweats. He is not anorexic or losing weight. SKIN: No rashes or lesions. No history of dermatoses. HEENT: Negative for headaches, lightheadedness, or dizziness. No visual or hearing deficits. No sinus symptoms, sore throat, or dysphagia. LYMPH: No history of lymphoproliferative disease. CARDIAC: No history of coronary artery disease, no angina or palpitations. PULMONARY: Negative for COPD. He is not short of breath, dyspneic, or orthopneic. No cough or hemoptysis. GASTROINTESTINAL: Negative for abdominal pain, nausea, vomiting, diarrhea or constipation, hematochezia or melena stools. GENITOURINARY: No hematuria, dysuria, urinary incontinence. PSYCHIATRIC: Positive for anxiety. ENDOCRINE: Negative for diabetes or thyroid disease. NEUROLOGIC: Negative for seizure, stroke, or migraine headache. HEMATOLOGIC: Positive for multifactorial anemia. PHYSICAL EXAMINATION: GENERAL: Very pleasant 65-year-old gentleman, awake, alert, appropriate, in no acute distress. VITAL SIGNS: Temperature 37.2, pulse 102, respiratory rate 16, blood pressure 116/68. SKIN: Warm, dry, noncyanotic without petechiae, rash or ecchymosis. HEENT: Head is atraumatic, normocephalic. Eyes PERRLA. Nares patent without rhinorrhea or discharge. Throat clear. Tongue midline. NECK: Supple without JVD or thyromegaly. HEART: Regular rate and rhythm. No clicks, rubs, murmurs or gallops. LUNGS: Clear to auscultation bilaterally. ABDOMEN: Soft, nontender, nondistended, without palpable hepatosplenomegaly. EXTREMITIES: No clubbing, cyanosis, or edema. NEUROLOGIC: He is awake, alert and oriented x3. Cranial nerves are intact. IMPRESSION: 1. Metastatic prostate cancer. 2. Left jaw osteomyelitis. 3. Right upper quadrant pain. 4. Bilateral pleural effusions. 5. Metastatic prostate cancer. PLAN: I have been asked to see Mr. Suresh. Quite honestly, I don't know this patient very well. We are in a supportive role at [facility] in regards to this gentleman's care. Our physician extenders have been monitoring his anemia and providing supplement to manage anemia.. Apparently, he received transfusion of packed RBCs within the past week or so. His hemoglobin remains a bit tenuous. In regard to his metastatic prostate cancer, he is receiving care at [facility] at present. He also has consultants at the [facility]. This gentleman has been heavily pretreated including total androgen blockade, immune therapy, and now salvage chemotherapy consisting of Orgovyx and Xtandi in combination recently started by the specialty sales consultant at [facility]. The patient continues to have some pain issues. I saw the addendum from the hospitalist note adding oxycodone for which I agree. I anticipate Mr. Suresh will go home today and resume therapy as ordered. We will advise Harmony Mar of his discharge, so she may schedule a post-hospitalization followup. I have nothing further to add in this gentleman's case. Please call me if there are any concerns that I did not address in Mr. Suresh's care. MTDD
[2020-10-06] MEDS ORDERED: SODIUM CHLORIDE 0.9% 250 ML IV PRN (08:00)
[2020-10-06] MEDS: AMOXICILLIN/CLAVULANATE 875 MG TAB PO SCH ×2 (08:06→16:03)
[2020-10-06] MEDS: GABAPENTIN 100 MG CAP PO SCH ×2 (09:16→12:59)
--- NOTE | 2020-10-06 11:14 | Discharge Summary ---
Date of Service October 06, 2020 Admission HPI Per Admitting Provider Chief Complaint: The patient presents to the emergency department with complaint of fever to a max of 101.5 F, acute on chronic left jaw discomfort and nausea. Primary Care Provider: Yehuda Carrera DO The patient is a 65-year-old male with a past medical history including metastatic prostate cancer, anxiety, neuropathy and vitamin B12 deficiency. He reports having a dental infection a few years ago in his left mandibular area, for which he is on amoxicillin chronically for infection suppression. He had been doing well with his jaw until the past 24 hours where he has developed a temperature and worsening pain. Admission Exam Per Admitting Provider The patient is awake, alert and oriented 3, well developed and well nourished, normocephalic and atraumatic, lying in bed and in no acute distress. HEENT--PERRL, EOMI, mucous membranes and oropharynx dry. Neck--supple. No JVD. No bruits. Thyroid normal, trachea midline, no genie opathy. Heart--normal S1 and S2. No murmurs, rubs or gallops. Lungs--clear bilaterally, no respiratory distress, no accessory muscle use. Abdomen--normal bowel sounds and soft. Tender epigastric and right upper quadrant areas. Nondistended, no hernias or masses, no organomegaly. Extremities--no cyanosis or clubbing. No edema. Dermatologic--normal skin turgor, normal color, no abnormal lymph nodes, no rash. Neurologic--cranial nerves II through XII grossly intact. Rheumatologic--normal range of motion. Psychiatric--normal affect. Principal Diagnosis Acute on chronic exacerbation of osteomyelitis complicated by gallbladder abnormality, anemia, and metastatic pancreatic cancer Discharge Exam General: No acute distress HEENT: Normocephalic atraumatic, scab on top of his head Neck: Normal to visual inspection, trachea midline Cardiac: Regular rate and rhythm I did not appreciate any significant murmurs rubs or gallops, normal S1, normal S2, negative pedal edema, negative calf tenderness Respiratory: Clear to auscultation bilaterally with symmetrical chest expansion did not appreciate any wheezes, rales, rhonchi GI: Soft, nontender, nondistended, bowel sounds present all 4 quadrants MSK: Moves all extremities Discharge Data Allergies Allergy/AdvReac Type Severity Reaction Status Date / Time No Known Allergies Allergy Unverified 10/03/20 20:32 Consultations 10/04/20 00:15 ED Decision to Admit Stat 10/05/20 09:49 Consult Oncology Routine Ordered Studies 10/03/20 21:14 CT facial bones w con Urgent 10/03/20 22:51 CT chest diagnostic wo con Urgent 10/04/20 00:40 CT abd pelvis wo con Urgent Hospital Course (1) Prostate cancer metastatic to bone: Pt with pmhx of stage 4 prostate cancer s/p chemotherapy and radiation with last radiation treatment in May 2020, 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 L jaw pain suspect osteomyelitis Acute on chronic. He was previously on amoxicillin. CT face: age indeterminate fracture involving L body of mandible. Skeletal structures are markedly heterogeneous that suggest osseous metastatic disease. Mild overlying soft tissue edema. Spoke with Devi from 's office: she confirmed that pt is theirs. Per 's recommendation, okay to discharge patient on Augmentin for 7 days. Pt already scheduled for in-office follow up on October 18, but their office will call patient via phone to check in earlier. Blood cultures negative at 48 hours, discontinued Zosyn and vancomycin transition to Augmentin 875 twice daily to complete a 7-day course as an outpatient -Augmentin twice daily x7 days RUQ pain Given initial presentation of fever, RUQ, and labs suspected biliary etiology such as acalculous cholecystitis, fibrosis, obstruction, sphincter of oddi dysfunction. Patient reports being on a novel chemotherapeutic regimen including testosterone. When he receives a testosterone injection his bone pain is supposed to increase significantly, given the negative work-up thus far, negative HIDA scan on 10/04, and acute elevation in alk phos suspect pain is se condary to chemotherapy. Spoke with patient's palliative care physician who recommended increasing oxycodone to 10 mg p.o. every 4 hours as needed while hospitalized, will leave outpatient chronic pain medication to primary care provider. Acute drop in hemoglobin Baseline hemoglobin is between 10 and 11, patient's hemoglobin acutely dropped overnight from 9.4-7.8, repeat H&H in the afternoon demonstrating 8.4. Patient states he has a history of acute drops in his hemoglobin secondary to his cancer therapy. Given the complexity of this patient's chemotherapeutic regimen, and hematological abnormalities we have consulted hematology oncology for further assistance -Consult hematology oncology -Recommending transfusion with 2 units of blood and follow-up as an ou tpatient -trend hgb: 9.4 -> 7.8 -> 8.4->7.6 B/L pleural effusion suspect chronic due restricted chest wall movement, likely representing metastatic disease - 93% O2 on RA. As needed O2 as needed Metastatic (Stage 4) Prostate cancer - continue relugolix (GnRH antagonist) - As above Neuropathy - continue gabapentin 100mg TID Vitamin B12 Deficiency - continue ferrous sulfate, folic acid, and vit B12 Deepak Johnson MD PGY 2, FCM This chart was completed utilizing [employer] voice recognition software. Grammatical errors, random word insertions, pronoun errors, and in complete sentences are an occasional consequence of the system. Any questions or conc erns about the content, text, or information contained within the body of this dictation should be addressed directly to the physician for clarification. Total Time Total Time Spent Total Time Spent (In Minutes): 42 Discharge Plan Discharge Items Patient Disposition: Home - Self-Care Reason For Visit: OSTEO OF MANDIBLE, MET PROSTATE CA, NAUSEA Discharge Diagnosis: Acute on chronic osteomyelitis complicated by history of metastatic prostate cancer, chronic pain Activity: Resume your previous activity Non-emergency contact: Primary Care Provider Call non-emergency contact if: you have any medication questions, your pain is not controlled and your pain is unusual for you Follow-up/Referrals: Yehuda Carrera DO [Primary Care Provider] - 10/11/20 2:00 pm Diet: Regular Addtl Attending Provider Instructions: Care instructions: You were admitted to [facility] for treatment of acute exacerbation of your chronic infection of your jaw. While hospitalized you were provided with IV antibiotics until your blood cultures demonstrated 2 days of negative growth you were then transition to Augmentin as recommended by your outpatient oral maxillofacial surgeon. You have been prescribed a 7-day prescription of Augmentin this is been called into the [facility] pharmacy in [place]. Additionally while you were hospitalized it was noted that you had an acute drop in your hemoglobin there was concern for blood loss, and Dr. Smith your cancer physician was consulted recommending that you received 2 units of packed red blood cells prior to discharge. -Please follow-up with your outpatient providers on discharge A discharge summary will be sent to your primary care physician to ensure continuity of care. Please bring this discharge summary with you to your next office appointment so that your provider can review it at that time. Follow-up appointments: - Keep all your follow-up appointments as already scheduled. If you cannot make an appointment, notify your provider. - Please call to request a follow-up appointment with your primary care physician within one week of discharge. Please let us know if you are unable to obtain an appointment Medications: - Your medication list has been reviewed and reconciled upon discharge to ensure accuracy and continuity of care. - You are provided with a list of all your current medications at this time. Please review this list closely and make note of any changes. - Please take all of your medications exactly as prescribed. - Tell your primary care provider if you cannot afford your medications. - Call your primary care provider if you are having any side effects or any other problems. - Call your primary care provider before taking any over the counter medications or supplements, including herbals and vitamins, because some of these may interact with your current medications and/or make your symptoms worse. Symptoms: Please call your primary care provider for symptoms including, but not limited to: fevers (temperatures greater than 100.4), chills, intractable nausea or vomiting, diarrhea, rash, shortness of breath, bleeding, pain, or if you experience any worsening of the symptoms that brought you to the hospital. For EMERGENCY and VERY SERIOUS health-related issues, such as chest pain, shortness of breath, or sudden onset of the symptoms that brought you to the hospital, you may need to call 911 or go directly to the Emergency Room It has been our privilege to take care of you during your hospital stay. And Above All Else Feel Better! Best Wishes, Deepak Johnson MD PGY2 Resident, Family & Community Medicine [facility] FCM Residency at [facility] [address], [address] : [address] [place] [address], [place] [address] Pending Studies at Discharge: No Stand-Alone Forms: My [facility], Smoking Cessation Medications and DC Order Prescriptions: New amoxicillin-pot clavulanate [Augmentin] 875-125 mg Tablet 1 tab PO BIDM 7 Days Qty: 14 RF: 0 Continued gabapentin 100 mg Capsule 100 mg PO TID RF: 0 lorazepam 1 mg Tablet 1 mg PO HS PRN (Reason: appetite) RF: 0 oxycodone 5 mg Tablet 5 mg PO Q8H PRN (Reason: Pain) RF: 0 folic acid 400 mcg Tablet 400 mcg PO QPM RF: 0 ferrous sulfate 325 mg (65 mg iron) Tablet 325 mg PO QPM RF: 0 vitamin F23-vkbub acid 500-400 mcg Tablet 1 tab PO QPM RF: 0 Orgovyx 120 mg Tablet 120 mg PO QPM RF: 0 Discharge Orders: Discharge Order (Routine); Ordered 10/06/20 Ordered By: Deepak Squires/Other Patient Handouts: Preventing Falls in the Home, Amoxicillin Clavulanic Acid tablets Admission Data Admit Date/Time: 10/04/20 02:48 Attending Provider: Rudy Reeves Admit Provider: Bukre Rincon Primary Care Provider: Yehuda Carrera Other Providers: Burke Rincon ; Chucho Smith V. Other Interventions: Discharge Summary Assessment (RN) Last Done: 10/06/20 14:42 Supervising Physician Co-Signing Physician Notes Attending attestation Pt seen and examined in concert with Dr. Johnson. In agreement with the documented findings as noted in the resident documentation with any exceptions or additions as noted here. Abdominal pain resolved and has not returned, no change in jaw. Chronic diffuse bone pain which has worsened since the sabianist of testosterone therapy for metastatic prostate disease to bone which is normally improved with ambulation and home pain management stable on mild increase of oxycodone 10mg q6. On examination, S1/S2 nl RRR no MCG. CTAB. Abd NT/ND BS+ve Acute on chronic anemia - discussed with patient hematology team - transfused 2 U PRBC today, repeat Hgb as per outpatient schedule and f/u with hematology. Left jaw chronic osteomyelitis - previously on suppressive therapy w/ amox. BCx NGTD. transition to augmentin and f/u with OMFS in < 1 wk RUQ pain - at baseline rib pain with negative HIDA and CT without significant findings. Increased pain mgmt per recommendation of palliative care team working with case outpatient. Else see resident documentation as noted. Total attending time spent on case on day of discharge: 40 minutes. Resident Activity Tracking Resident Involvement: Resident Care Provided Care Provided: Adult [facility]
== END 2020-10-06 17:28 | disposition home or self-care (01) | DRG 158 ==
LOC: ED 20:04 → SUATTDRO 10-04 02:48 → 3N 10-04 02:48

== ENCOUNTER 2021-05-27 12:32 | Inpatient (IN) ==
[2021-05-27] MEDS ORDERED: SODIUM CHLORIDE 0.9% 1000ML 1,000 ML IV ONE ×2 (13:09→14:04)
--- NOTE | 2021-05-27 13:20 | Emergency Department Note ---
Impression & Plan Hypercalcemia, Prostate cancer metastatic to bone, Weakness ED Provider Note NAME: HAILY CLAIRE AGE: 66 SEX: M : 1955 ARRIVES VIA: Walk-In INFORMANT: Patient ED PROVIDER(S): Jovanny Lancaster DO CHIEF COMPLAINT: Weakness HPI: Patient is a 66-year-old male who presents the ER for weakness. He has a history of metastatic prostate cancer stage IV the presents for worsening weakness and confusion. Had blood work done and showed a calcium of nearly 14. Hemoglobin has been persistently trending down. He does receive transfusions. Denies any headache or change in vision. No chest pain or shortness of breath. Does have blood in the urine/Nice which is new. No other complaints at this time. ROS: See above HPI for pertinent positives & negatives. A total of 10 systems reviewed and were otherwise negative. � PAST MEDICAL HISTORY:��See Below PAST SURGICAL HISTORY:��See Below� FAMILY HISTORY:��See Below SOCIAL HISTORY:��See Below � HOME MEDICATIONS:��See Below ALLERGIES:��See Below � VITALS:��See Below PHYSICAL EXAMINATION: GENERAL: Sitting up in bed, alert, ill-appearing, disheveled and cachectic EYE EXAM: normal conjunctiva. PERRL and EOM's grossly intact. OROPHARYNX: no exudate, no erythema, lips, buccal mucosa, and tongue normal and mucous membranes are moist NECK: supple, no nuchal rigidity, no adenopathy, non-tender LUNGS: Clear to auscultation. Normal chest wall mechanics HEART: no murmurs, S1 normal and S2 normal ABDOMEN: abdomen soft, non-tender, normo-active bowel sounds, no masses, no rebound or guarding. : Nice in place with a slight pinkish hue UPPER EXTREMITIES: upper extremities are grossly normal. LOWER EXTREMITIES: No pitting edema. NEURO EXAM: Normal sensorium, cranial nerves II-XII grossly intact, normal speech, no gross weakness of arms, no gross weakness of legs. MEDICAL DECISION MAKING: Patient is a 66-year-old male who had blood work done earlier today and found to be hyper calcemic with a calcium of 13.6 as well as an anemia. He was referred in to the ER for further work-up. Patient was given IV fluids. Urine was ordered and did show that it is contaminated but he did have some new hematuria although the Nice was just changed. Will defer to the hospitalist. Patient was updated bedside. Patient was admitted for further work-up of his hypercalcemia which is likely secondary to his metastatic cancer. Of note his blood pressure was 89 systolic. His baseline appears to be low 90s to high 100s. He was given IV fluids for this. He was afebrile. Triage Nursing notes reviewed. Limited review of prior medical records performed Vital Signs: reviewed and remarkable for hypotension Differential diagnosis: Infection, dehydration, metabolic abnormality, hypo/hyperglycemia, electrolyte disturbance, anemia, hypoxia, cardiac sources, intracerebral event, toxicologic, neurologic, as well as other pathologies. ER treatment provided: See below Diagnostics interpreted by me: ECG: none Laboratory studies: As stated above and show below. Imaging studies: See below Consultation(s): Discussed with Dr. Ted Iraheta for further evaluation Procedures: none Critical Care: None � Past Med/Surg History Medical History Herniated disc Prostate cancer metastatic to bone Right foot injury Social History Smoking Status: Never smoker Hx Alcohol Use: Yes Hx Substance Use: No Preferred Language: Syrian Communication Ability: Effective Beliefs That Will Affect Care: None marital status: Life Partner Current Living Situation: Significant Other current occupational status: retired Feels Safe at Home: Yes Assistive Devices: Glasses and Walker Allergies Allergies Allergy/AdvReac Type Severity Reaction Status Date / Time levothyroxine Allergy Severe Swelling Verified 05/27/21 15:01 of Lip/Tongue/Throat Home Meds Home Medications Medication Instructions Recorded Confirmed gabapentin 100 mg capsule 100 mg PO TID 08/13/20 05/27/21 ferrous sulfate 325 mg (65 mg 325 mg PO QPM 10/03/20 05/27/21 iron) tablet folic acid 400 mcg tablet 400 mcg PO QPM 10/03/20 05/27/21 relugolix 120 mg tablet (Orgovyx) 120 mg PO QPM 10/03/20 05/27/21 vitamin B12 500 mcg-folic acid 400 1 tab PO QPM 10/03/20 05/27/21 mcg tablet enzalutamide 40 mg tablet (Xtandi) 160 mg PO HS 04/05/21 05/27/21 cholecalciferol (vitamin D3) 25 25 mcg PO DAILY 05/27/21 05/27/21 mcg (1,000 unit) tablet (Vitamin D3) hydromorphone 4 mg tablet 0 mg PO Q6H PRN 05/27/21 05/27/21 mirtazapine 15 mg tablet 15 mg PO HS 05/27/21 05/27/21 ondansetron HCl 4 mg tablet 4 mg PO Q8H 05/27/21 05/27/21 (Zofran) oxycodone 20 mg tablet,crush 20 mg PO TID 05/27/21 05/27/21 resistant,extended release 12 hr (OxyContin) terazosin 5 mg capsule 0 mg PO DAILY 05/27/21 05/27/21 Previous Rx's Medication Instructions Recorded tamsulosin 0.4 mg capsule 0.4 mg PO DAILY #30 cap 05/27/21 Results & Data (ED) Vital Signs Vital Signs - 24 hr 05/27/21 12:45 05/27/21 14:30 Temperature 36.8 C Temperature Source Temporal Artery Scan Pulse Rate 87 Pulse Rate [Apical] 79 Pulse Rhythm Regular Pulse Strength Normal Respiratory Rate 20 20 Respiratory Effort / Characteristics Non-Labored Spontaneous Respiratory Depth Normal Normal Respiratory Pattern Regular Blood Pressure 89/55 L Blood Pressure [Left Arm] 112/51 L Blood Pressure Mean 66 Blood Pressure Mean [Left Arm] 71 Blood Pressure Position Sitting Pulse Oximetry 93 94 Oxygen Delivery Method Room Air Room Air Sepsis Recent Fever Within 48 Hours No Sepsis New/Unexplained Change in Mental Status N/A Sepsis Action Taken by Nursing No Action Required Laboratory Data Lab Results 05/27/21 05/27/21 05/27/21 Range/Units 13:18 13:30 13:30 Magnesium 2.6 H (1.8-2.4) mg/dl C-Reactive Protein 22.80 H (0-0.29) mg/dl 25-OH Vitamin D Total (30-100) ng/ml Procalcitonin 0.30 (0-0.5) ng/ml PTH Intact (18.4-80.1) pg/ml SARS-CoV-2, RNA, NAAT NEGATIVE (NEGATIVE) 05/27/21 05/27/21 Range/Units 15:17 15:17 Magnesium (1.8-2.4) mg/dl C-Reactive Protein (0-0.29) mg/dl 25-OH Vitamin D Total 39.2 (30-100) ng/ml Procalcitonin (0-0.5) ng/ml PTH Intact < 6.3 L (18.4-80.1) pg/ml SARS-CoV-2, RNA, NAAT (NEGATIVE) Administered Medications Discontinued Medications Sodium Chloride (Nss 1000ml) 1,000 mls @ 999 mls/hr IV .Q1H1M ONE Stop: 05/27/21 14:09 Last Infusion: 05/27/21 14:59 Dose: 999 mls/hr Documented by: [id number] Admin: 05/27/21 13:58 Dose: 999 mls/hr Documented by: [id number] Sodium Chloride (Nss 1000ml) 1,000 mls @ 999 mls/hr IV .Q1H1M ONE Stop: 05/27/21 15:04 Last Infusion: 05/27/21 17:01 Dose: 999 mls/hr Documented by: [id number] Admin: 05/27/21 16:00 Dose: 999 mls/hr Documented by: [id number] Calcitonin Rhodes 260 units/ (Syringe) 1.3 mls @ 0 mls/sec SQ NOW STA Stop: 05/27/21 14:09 Last Admin: 05/27/21 16:42 Dose: 1.3 mls/sec Documented by: [id number] Cefepime HCl 2,000 mg/ Syringe 20 mls @ 5 mls/min IV NOW STA; Protocol Stop: 05/27/21 15:56 Last Admin: 05/27/21 17:35 Dose: 5 mls/min Documented by: [id number] Imaging Data Radiologist's Impression: Chest X-Ray 05/27/21 14:08 XR chest 1V portable CLINICAL HISTORY: hypoxia TECHNIQUE: Single frontal radiograph of the chest was obtained. Comparison: Comparison is made to chest one view 10/03/2020 FINDINGS: No lines and tubes are seen. The cardiomediastinal silhouette is normal. Diffuse interstitial thickening is seen in the lungs. There are new opacities in the bilateral upper lobes. No evidence of pleural effusion or pneumothorax. Diffuse osteoblastic disease is again seen. IMPRESSION: Redemonstration of interstitial thickening in the lungs. There is new opacity in the bilateral upper lungs which may represent atelectasis, pneumonia, or aspiration. Diffuse osteoblastic disease is again seen. ACT 112: Negative or not required by law. Electronically signed by: Jassi Diehl M.D. 05/27/2021 3:36 PM Discharge Plan Visit Data Chief Complaint: Abnormal Labs/Diagnostic Testing Stated Complaint: CALCIUM ELEVATED,REF BY DOC FOR IV ED Provider: Jovanny Lancaster Discharge Problem: Hypercalcemia, Prostate cancer metastatic to bone, Weakness
[2021-05-27 14:02] LABS: Magnesium 2.6 mg/dl (1.8-2.4)
[2021-05-27] MEDS ORDERED: CALCITONIN SALMON 400 UNITS/2 ML SQ STA (14:05)
[2021-05-27] MEDS ORDERED: CALCITONIN SALMON SQ STA (14:08)
--- NOTE | 2021-05-27 14:08 | History & Physical Report ---
Date of Service May 27, 2021 Assessment & Plan (1) Altered mental status: Plan: Suspect multifactorial due to hypotension, dehydration, possible infection, hypercalcemia, pain medication, nutritional status, metastatic prostate cancer Low tolerance for head CT if he does not improve overnight but given alternative etiology and nonfocal symptoms I have low suspicion of stroke or metastatic disease. (2) Hypercalcemia: Plan: Main reason he was sent to the emergency room Suspect secondary to prostate cancer PTH, PTH related peptite, Vit D2/3 levels Stop vitamin D supplementation Calcitonin 260 units (based on patient weight 65 kg per his recollection), repeat in a.m. if calcium not corrected back to normal. NSS 1L bolus given in ER, will give addition 1L in addition to IV fluids overnight Pamidronate 90 mg IV used instead of zoledronic acid due to reduced risk of osteonecrosis of a stroke - although his previous episode was associated with a dental procedure Repeat levels in AM to assess for response (3) Catheter-associated urinary tract infection: Plan: Possible diagnosis -difficult to rule out not contributing to his symptoms Follow-up blood and urine cultures Start cefepime 2 g IV every 8 hourly (4) Acute urinary retention: Plan: Continue Nice catheter -recommend changing if blood cultures are subsequently positive but since it was just changed 3 days ago we will continue his current catheter. (5) Weakness: Plan: Suspect multifactorial as above PT/OT eval (6) Prostate cancer metastatic to bone: Plan: Progressive disease despite anti-androgen therapy Consult oncology to determine safety of Xtandi and Orgovyx Patient has extremely poor prognosis from this. His daughter was previously unaware of any spread to his liver. He is under palliative care as an outpatient therefore will hold off palliative care consult here. Hold his usual OxyContin and mirtazapine due to altered mental status, this can be restarted as his mental status improves. Use oxycodone as needed for bone pain. (7) Fecal impaction: Plan: Suspect secondary to opiate use MiraLAX 3 times daily -start tomorrow once more awake and alert Senokot 1 tab every morning Plan: VTE prophylaxis -Lovenox 40 mg subcu daily Diet -regular Disposition - admit to PCU due to hypercalcemia and altered mental status Admission and Anticipated Discharge Date Admission Date: May 27, 2021 History of Present Illness Chief Complaint: Generalized weakness, altered mental status Primary Care Provider: DO Corey Wong is a 66 year old male who presents to the ER on the advice of his oncologist due to hyperkalemia on routine outpatient labs. History is taken from his daughter at bedside due to the patient's altered mental status. He has routine lab work twice a week with oncology. Calcium 13.9 mg/dL which when corrected for albumin is 15.2 mg/dL. His daughter reports he has gone significantly downhill since surgery for left humeral fracture and to prevent left femur fracture on April 15, [address] [facility]. She reports he was hospitalized for 3 weeks requiring 3 sessions of temporary dialysis due to acute renal failure. Main symptoms of fatigue, confusion which is significantly progressed in the last few days and he has been collapsing while trying to get up. At the end of his hospitalization on May 06 he was unabl e to pass voiding trials therefore Nice catheter was placed. He was followed up by urology 3 days ago for catheter change and ongoing management of urine retention. He is currently undergoing aggressive prostate cancer treatment with Orgovyx and Xtandi. He was previously taking Xgeva but developed osteonecrosis of the jaw after a dental procedure for tooth abscess. He reportedly restarted Xgeva this summer but discontinued due to hypercalcemia per daughter's recollection. In the ER he was started on normal saline 1L bolus and referred to medicine for admission ongoing management of hypercalcemia. Allergies Allergy/AdvReac Type Severity Reaction Status Date / Time levothyroxine Allergy Severe Swelling Verified 05/27/21 15:01 of Lip/Tongue/Throat Home Medications Medication Instructions Recorded Confirmed Type gabapentin 100 mg capsule 100 mg PO TID 08/13/20 05/27/21 History ferrous sulfate 325 mg (65 mg 325 mg PO QPM 10/03/20 05/27/21 History iron) tablet folic acid 400 mcg tablet 400 mcg PO QPM 10/03/20 05/27/21 History relugolix 120 mg tablet (Orgovyx) 120 mg PO QPM 10/03/20 05/27/21 History vitamin B12 500 mcg-folic acid 400 1 tab PO QPM 10/03/20 05/27/21 History mcg tablet enzalutamide 40 mg tablet (Xtandi) 160 mg PO HS 04/05/21 05/27/21 History cholecalciferol (vitamin D3) 25 25 mcg PO DAILY 05/27/21 05/27/21 History mcg (1,000 unit) tablet (Vitamin D3) hydromorphone 4 mg tablet 0 mg PO Q6H PRN 05/27/21 05/27/21 History mirtazapine 15 mg tablet 15 mg PO HS 05/27/21 05/27/21 History ondansetron HCl 4 mg tablet 4 mg PO Q8H 05/27/21 05/27/21 History (Zofran) oxycodone 20 mg tablet,crush 20 mg PO TID 05/27/21 05/27/21 History resistant,extended release 12 hr (OxyContin) tamsulosin 0.4 mg capsule 0.4 mg PO DAILY #30 cap 05/27/21 05/27/21 Rx terazosin 5 mg capsule 0 mg PO DAILY 05/27/21 05/27/21 History Past Med/Surg History Medical History Herniated disc Prostate cancer metastatic to bone Right foot injury Social History Smoking Status: Never smoker Hx Alcohol Use: No Hx Substance Use: No Preferred Language: Spanish Communication Ability: Effective [employer] Required: No Beliefs That Will Affect Care: None marital status: Life Partner Current Living Situation: Significant Other and Other Current Living Situation Comment: oscar - life partner current occupational status: retired Feels Safe at Home: Yes Assistive Devices: Wheelchair Review of Systems Review of Systems: All systems reviewed & are unremarkable except as noted in HPI & below Physical Exam Constitutional: + cachectic and + frail appearing; + not well nourished and no acute distress Eyes: + anicteric sclerae; normal pupil size ENMT: Mouth: + dry oral mucous membranes Neck: trachea midline, no thyromegaly Respiratory: normal respiratory effort, lungs clear to auscultation Cardiovascular: Rate/Rhythm: regular rhythm and + tachycardic Heart Sounds: no murmur Extremities: normal capillary refill and + pedal edema; no calf tenderness Gastrointestinal (Abdomen): Inspection/Auscultation: normal bowel sounds; abdomen not distended Percussion/Palpation: + abdomen tender (Pelvic) and abdomen soft; no guarding and abdomen not rigid Musculoskeletal: no cyanosis or clubbing, extremities motor strength 5/5 Skin: no rashes, warm and dry (No areas of cellulitis) Neurologic: moves all extremities, awake (Lethargic) and + confused Psychiatric: Orientation: alert (Following one-step command); + not oriented x 3 Genitourinary: no CVA tenderness Results & Data Results & Data ([facility]) Vital Signs (Past 12 Hours) Vital Signs Temp Pulse Resp BP Pulse Ox 05/27/21 12:45 36.8 C 87 20 89/55 L 93 Laboratory Results Abnormal lab results 05/27/21 Range/Units 13:30 Magnesium 2.6 H (1.8-2.4) mg/dl Diagnostic Findings XR chest 1V portable CLINICAL HISTORY: hypoxia � TECHNIQUE: Single frontal radiograph of the chest was obtained.� Comparison: Comparison is made to chest one view 10/03/2020 FINDINGS: No lines and tubes are seen. The cardiomediastinal silhouette is normal. Diffuse interstitial thickening is seen in the lungs. There are new opacities in the bilateral upper lobes. No evidence of pleural effusion or pneumothorax. Diffuse osteoblastic disease is again seen. IMPRESSION: Redemonstration of interstitial thickening in the lungs. There is new opacity in the bilateral upper lungs which may represent atelectasis, pneumonia, or aspiration. Diffuse osteoblastic disease is again seen. CT abd pelvis wo con CLINICAL HISTORY: Flank pain. Evaluate for hydronephrosis, pyelonephritis, stone COMPARISON STUDY:� 10/04/2020 CT DOSE: 533.81 mGy.cm TECHNIQUE: Standard CT of the Abdomen and Pelvis was performed without IV contrast.� The patient did not receive oral contrast.� A dose lowering technique was utilized adhering to the principles of ALARA. FINDINGS: Lung base:� Compared to previous examination, there is now only a small right pleural effusion and minimal pleural thickening on the left. No confluent alveolar opacities or bronchograms are seen. There has been interval increase in blastic metastases throughout this the spine and ribs with numerous pathologic fractures now present bilaterally. There is no evidence for pneumothorax. Abdominal cavity: Compared to previous examination, extensive para-aortic, retroperitoneal or mesenteric adenopathy is again seen. There is no evidence for abdominal ascites or focal abdominal mass. Liver: The liver is enlarged and heterogeneous in attenuation on these limited noncontrast images. There is evidence for multiple foci of abnormal attenuation characteristic of diffuse metastatic disease to the liver.. Spleen: The spleen is homogeneous in attenuation on these limited noncontrast images. Pancreas: The pancreas is homogeneous in attenuation on these limited noncontrast images. Gall Bladder: The gallbladder is well distended with no evidence for cholelithiasis, wall thickening or pericholecystic edema.. Adrenal glands: The adrenal glands are normal in size and attenuation on these limited noncontrast images. Kidneys: The kidneys are homogeneous in attenuation on these limited noncontrast images. There is no evidence for gross renal mass, calculus or hydronephrosis bilaterally. Bowel: The small bowel bowel loops are normally placed within the abdomen and pelvis without evidence for dilatation or obstruction. There is mild to moderate fecal impaction and mild to moderate fecal stasis without evidence for dilatation or gross obstruction. There are no inflammatory changes present. There is no evidence for free air. Bladder: The bladder is distended despite the presence of a Nice catheter. Air is present within the bladder most likely related to placement of the catheter. : There is no evidence for pelvic mass or adenopathy. Vasculature: There is no evidence for focal aneurysmal dilatation of the abdominal aorta. Osseous structures: Marked blastic metastases are seen throughout the pelvis, hips and spine as well. No other definite pathologic fractures are identified. There are remote anterior wedge deformities of the lower thoracic spine. IMPRESSION: 1. No evidence for renal calculus or hydronephrosis. 2. Mild to moderate fecal impaction and mild to moderate fecal stasis without evidence for colonic dilatation or obstruction. 3. Interval development of hepatomegaly and diffuse liver metastases. 4. Marked blastic metastases throughout the spine, pelvis, hips and ribs with multiple pathologic rib fractures seen. No other pathologic fractures are identified. 5. Extensive periaortic, retroperitoneal and mesenteric adenopathy are again seen. 6. No other evidence for acute intra-abdominal or pelvic abnormality on these limited noncontrast images. Medications Administered ER Medications Given: NSS 1L bolus ECG Indication: other (hypercalcemia) Rate (beats per minute): 88 Rhythm: normal sinus Findings: no acute ischemic change Comparison ECG Date: from (October 03, 2020) Change: no significant change Code Status & VTE Plan Code Status DNR/DNI VTE Prophylaxis Plan VTE Prophylaxis will be ordered: Yes PG Care Time/CCT Total # of Minutes Spent Total Time Spent with Patient: Total time spent is greater than 50% in coordination of care (as documented) at patient's floor/unit and/or counseling patient: Coding Level of Care Code 18409 Initial Inpt Care Lvl 3 Diagnoses Acute urinary retention R33.8 Hypercalcemia E83.52 Weakness R53.1 Altered mental status R41.82 Prostate cancer metastatic to bone C61; C79.51 Fecal impaction K56.41 Catheter-associated urinary tract infection T83.511A; N39.0
[2021-05-27 15:14] LABS: Appearance Urine Turbid (Clear); Bacteria Urine Automated 4+ (Negative); Blood Urine 3+ (Negative); Color Urine Orange; Epithelial Cell Urine Auto >30 /lpf (0-5); Glucose Urine UA Negative (Negative); Ketones Urine Trace (Negative); Leukocyte Esterase Urine 3+ (Negative); Nitrite Urine Negative (Negative); Protein Urine 2+ (Negative); Specific Gravity Urine 1.015 (1.000-1.030); Urobilinogen Urine Negative (Negative); WBC Urine Automated >30 /hpf (0-5); pH Urine 6.5 (4.5-7.5)
[2021-05-27 15:15] LABS: Bilirubin Urine 1+ (Negative)
--- NOTE | 2021-05-27 15:21 | Electrocardiogram Report ---
Test Reason : Blood Pressure : / mmHG Vent. Rate : 088 BPM Atrial Rate : 088 BPM P-R Int : 128 ms QRS Dur : 090 ms QT Int : 356 ms P-R-T Axes : 053 015 056 degrees QTc Int : 430 ms Poor data quality, interpretation may be adversely affected Normal sinus rhythm Normal ECG When compared with ECG of 03-OCT-2020 20:50, Premature atrial complexes are no longer Present Confirmed by Go Santiago ([id number]) on 05/27/2021 3:21:42 PM Referred By: Chucho Smith Confirmed By:Go Santiago
[2021-05-27 15:30] LABS: Cast Urine Automated 0 /lpf (0-5); RBC Urine Automated >30 /hpf (0-4)
--- NOTE | 2021-05-27 15:38 | XRay Report ---
XR chest 1V portable CLINICAL HISTORY: hypoxia TECHNIQUE: Single frontal radiograph of the chest was obtained. Comparison: Comparison is made to chest one view 10/03/2020 FINDINGS: No lines and tubes are seen. The cardiomediastinal silhouette is normal. Diffuse interstitial thicken ing is seen in the lungs. There are new opacities in the bilateral upper lobes. No evidence of pleura l effusion or pneumothorax. Diffuse osteoblastic disease is again seen. IMPRESSION: Redemonstration of interstitial thickening in the lungs. There is new opacity in the bilateral upper lungs which may represent atelectasis, pneumonia, or aspiration. Diffuse osteoblastic disease is agai n seen. ACT 112: Negative or not required by law. Electronically signed by: Jassi Diehl M.D. 05/27/2021 3:36 PM
[2021-05-27] MEDS ORDERED: CEFEPIME 2,000 MG in SYRINGE 0 ML IV STA (15:53)
[2021-05-27] MEDS ORDERED: POLYETHYLENE (MIRALAX) 17 GM PACK PO PRN (16:49)
[2021-05-27] MEDS ORDERED: ACETAMINOPHEN 325 MG TAB PO PRN (16:49)
--- NOTE | 2021-05-27 16:52 | CT Scan Report ---
CT abd pelvis wo con CLINICAL HISTORY: Flank pain. Evaluate for hydronephrosis, pyelonephritis, stone COMPARISON STUDY: 10/04/2020 CT DOSE: 533.81 mGy.cm TECHNIQUE: Standard CT of the Abdomen and Pelvis was performed without IV contrast. The patient did not receive oral contrast. A dose lowering technique was utilized adhering to the principles of FE Erwin FINDINGS: Lung base: Compared to previous examination, there is now only a small right pleural effusion and mi nimal pleural thickening on the left. No confluent alveolar opacities or bronchograms are seen. There has been interval increase in blastic metastases throughout this the spine and ribs with numerous pa thologic fractures now present bilaterally. There is no evidence for pneumothorax. Abdominal cavity: Compared to previous examination, extensive para-aortic, retroperitoneal or mesente sol adenopathy is again seen. There is no evidence for abdominal ascites or focal abdominal mass. Liver: The liver is enlarged and heterogeneous in attenuation on these limited noncontrast images. Th ere is evidence for multiple foci of abnormal attenuation characteristic of diffuse metastatic diseas e to the liver.. Spleen: The spleen is homogeneous in attenuation on these limited noncontrast images. Pancreas: The pancreas is homogeneous in attenuation on these limited noncontrast images. Gall Bladder: The gallbladder is well distended with no evidence for cholelithiasis, wall thickening or pericholecystic edema.. Adrenal glands: The adrenal glands are normal in size and attenuation on these limited noncontrast im ages. Kidneys: The kidneys are homogeneous in attenuation on these limited noncontrast images. There is no evidence for gross renal mass, calculus or hydronephrosis bilaterally. Bowel: The small bowel bowel loops are normally placed within the abdomen and pelvis without evidence for dilatation or obstruction. There is mild to moderate fecal impaction and mild to moderate fecal stasis without evidence for dilatation or gross obstruction. There are no inflammatory changes presen t. There is no evidence for free air. Bladder: The bladder is distended despite the presence of a Nice catheter. Air is present within the bladder most likely related to placement of the catheter. : There is no evidence for pelvic mass or adenopathy. Vasculature: There is no evidence for focal aneurysmal dilatation of the abdominal aorta. Osseous structures: Marked blastic metastases are seen throughout the pelvis, hips and spine as well. No other definite pathologic fractures are identified. There are remote anterior wedge deformities o f the lower thoracic spine. IMPRESSION: 1. No evidence for renal calculus or hydronephrosis. 2. Mild to moderate fecal impaction and mild to moderate fecal stasis without evidence for colonic di latation or obstruction. 3. Interval development of hepatomegaly and diffuse liver metastases. 4. Marked blastic metastases throughout the spine, pelvis, hips and ribs with multiple pathologic rib fractures seen. No other pathologic fractures are identified. 5. Extensive periaortic, retroperitoneal and mesenteric adenopathy are again seen. 6. No other evidence for acute intra-abdominal or pelvic abnormality on these limited noncontrast leeroy ges. ACT 112: Negative or not required by law. Electronically signed by: Cj Quinn M.D. 05/27/2021 4:51 PM
[2021-05-27] MEDS ORDERED: PAMIDRONATE DISODIUM 90 MG in SODIUM CHLORIDE 0.9% 1000ML 1,000 ML IV SCH (17:00)
[2021-05-27] MEDS ORDERED: CONSULT PHARMACY STA (17:08)
[2021-05-27 17:20] LABS: C Reactive Protein 22.8 mg/dl (0-0.29)
[2021-05-27] MEDS: GABAPENTIN 100 MG CAP PO SCH (20:44)
[2021-05-27] MEDS ORDERED: oxyCODONE HCL 20 MG TABCR (OxyCONTIN) PO PRN (23:32)
[2021-05-28 00:25] LABS: Creatinine Clr Calc Pharmacy 93.5 ml/min; Est GFR (African American) 114.3 ml/min; Est GFR (Non-African American) 98.6 ml/min
[2021-05-28] MEDS: LACTATED RINGER'S 1,000 ML IV SCH ×2 (01:15→08:14)
[2021-05-28] MEDS: CEFEPIME 2,000 MG in SYRINGE 0 ML IV SCH ×3 (01:16→17:30)
[2021-05-28 07:30] LABS: Hematocrit (blood only) 18.8 % (42-52); Mean Corpuscular Hemoglobin 27.8 pg (25-34); Mean Corpuscular Hgb Conc 31.9 g/dL (32-36); Mean Platelet Volume 9.3 fL (7.4-10.4); Platelet Count 79 K/uL (130-400); RDW Coefficient of Variation 16.3 % (11.5-14.5); RDW Standard Deviation 52.6 fL (36.4-46.3); Red Blood Count 2.16 M/uL (4.7-6.1); White Blood Count 4.56 K/uL (4.8-10.8)
[2021-05-28 07:32] LABS: Eosinophils # (auto) 0.02 K/uL (0-0.5); Eosinophils % (auto) 0.4 %; Immature Granulocytes # (auto) 0.13 K/uL (0.00-0.02); Immature Granulocytes % (auto) 2.9 %; Lymphocytes % (auto) 6.6 %; Monocytes # (auto) 0.27 K/uL (0.11-0.59); Monocytes % (auto) 5.9 %; Neutrophils # (auto) 3.84 K/uL (1.4-6.5); Neutrophils % (auto) 84.2 %; Platelet Estimate Decreased (Normal); Poikilocytosis Present
[2021-05-28 08:09] LABS: Albumin Globulin Ratio 0.5 (0.9-2); BUN Creatinine Ratio 26.1 (10-20); Bilirubin,Total 0.6 mg/dl (0.2-1); Calcium 11.2 mg/dl (8.5-10.1); Creatinine Clr Calc Pharmacy 106.9 ml/min; Est GFR (African American) 120.7 ml/min; Est GFR (Non-African American) 104.1 ml/min; Globulin 4.2 gm/dl (2.5-4.0); Potassium 3.3 mmol/L (3.5-5.1); Total Protein 6.2 gm/dl (6.4-8.2)
[2021-05-28] MEDS: DOCUSATE SODIUM/SENNA 50/8.6MG TAB PO SCH (08:15)
[2021-05-28] MEDS: ENOXAPARIN INJ 40 MG/0.4 ML SYR SQ SCH (08:15)
[2021-05-28] MEDS: POLYETHYLENE (MIRALAX) 17 GM PACK PO SCH ×3 (08:15→21:15)
[2021-05-28] MEDS: GABAPENTIN 100 MG CAP PO SCH ×3 (08:20→21:16)
[2021-05-28] MEDS ORDERED: CALCITONIN SALMON 400 UNITS/2 ML SQ ONE (08:23)
[2021-05-28] MEDS: POTASSIUM CHLORIDE CRTAB 20 MEQ TABCR PO SCH ×3 (08:58→21:16)
[2021-05-28] MEDS: POTASSIUM CHLORIDE 20 MEQ in LACTATED RINGER'S 1,000 ML IV SCH (08:59)
[2021-05-28] MEDS ORDERED: CALCITONIN SALMON 250 UNITS in SYRINGE 0 ML SQ ONE (09:30)
--- NOTE | 2021-05-28 10:49 | Hospitalist Progress Note ---
Date of Service May 28, 2021 Assessment & Plan (1) Hypercalcemia: Plan: 2nd to prostate cancer. Severe. intact PTH low c/w cancer-driven hypercalcemia. s/p pamidronate infusion yesterday along with calcitonin and IV fluids. will repeat the calcitonin today. cont IVF. lasix following PRBCs will also help. BMP am. High calcium likely a major pickup driver of his altered MS. (2) Anemia: Plan: multifactorial but his advanced cancer likely the largest culprit. Tx 2 units PRBCS with lasix IV following such. cbc am. (3) Acute metabolic encephalopathy: Plan: hypercalcemia, UTI, etc likely all contributing. MRI brain previously showed brain mets - ordered CT head today - negative for obvious lesions. (4) Catheter-associated urinary tract infection: Plan: 2nd GNR cont cefepime follow culture (5) Acute urinary retention: Plan: exchanged in the urology office earlier this week cont current serrato (6) Weakness: Plan: Suspect multifactorial High calcium likely the largest instigator PT/OT evals when able to participate (7) Prostate cancer metastatic to bone: Plan: Progressive disease despite anti-androgen therapy Currently receiving Xtandi and Orgovyx Now has mets to his lymph nodes and liver Very poor prognosis Oncology consult appreciated Strongly consider palliative consultation while hospitalized to refine goals of care Remains DNR however repeat labs am treat high calcium (8) Fecal impaction: Plan: Suspect secondary to opiate use and hypercalcemia Bowel maintenance needed May need per rectum agents as well (9) Pancytopenia: Plan: etiology? check b12/folate/TSH in am (10) Hypokalemia: Plan: replace repeat level am (11) DVT prophylaxis: Plan: lovenox Plan: pt's significant other extensively updated by phone verbal consent obtained by phone for PRBCs; that phone call was witnessed by nursing staff Admission and Anticipated Discharge Date Admission Date: May 27, 2021 Subjective patient sleepy, confused would wake to answer questions but couldn't offer any meaningful history or ROS he did deny pain in any location nursing states he did not eat any breakfast tele stable overnight spoke with his significant other Parisa who retains healthcare POA she gave consent (verbal over the phone, witnessed by his nurse) for blood products Review of Systems Review of Systems: Unobtainable due to cognitive status Physical Exam Physical Exam: gen - sleepy, confused, unwell appearing mouth - MM very dry neck - no JVD heart - RRR, s1 s2 lungs - CTA b/l abd - mildly distended, nontender, BS+ ext - no edema, pulses 2+ b/l psych - oriented to person only Results & Data Results & Data ([place]) Vital Signs (Past 12 Hours) Vital Signs Temp Pulse Pulse Resp BP Pulse Ox 05/28/21 08:14 84 05/28/21 06:54 36.8 C 84 18 119/64 93 05/28/21 03:14 36.7 C 86 14 114/62 95 05/27/21 23:09 36.5 C 91 H 18 117/62 94 Laboratory Results Laboratory Results - last 24 hr 05/27/21 05/27/21 05/27/21 13:18 13:30 13:30 WBC RBC Hgb Hct MCV MCH MCHC RDW Std Deviation RDW Coeff of Nadira Plt Count MPV Immature Gran % (Auto) Neut % (Auto) Lymph % (Auto) [place] % (Auto) Eos % (Auto) Baso % (Auto) Neut # (Auto) Lymph # (Auto) [place] # (Auto) Eos # (Auto) Baso # (Auto) Immature Gran # (Auto) Platelet Estimate Poikilocytosis ESR Sodium Potassium Chloride Carbon Dioxide Anion Gap BUN Creatinine Est Cr Clr Drug Dosing Est GFR ( Amer) Est GFR (Non-Af Amer) BUN/Creatinine Ratio Glucose Lactate Calcium Magnesium 2.6 H Total Bilirubin AST ALT Alkaline Phosphatase C-Reactive Protein 22.80 H Total Protein Albumin Globulin Albumin/Globulin Ratio 25-OH Vitamin D Total Vit D 1,25-Dihyd Total 1,25 Dihydroxy Vit D2 1,25 Dihydroxy Vit D3 Procalcitonin 0.30 PTH Intact PTH Related Protein Urine Color Urine Appearance Urine pH Ur Specific [place] Urine Protein Urine Glucose (UA) Urine Ketones Urine Blood Urine Nitrite Urine Bilirubin Urine Urobilinogen Ur Leukocyte Esterase Urine WBC (Auto) Urine RBC (Auto) U Hyaline Cast (Auto) U Epithel Cells (Auto) Urine Bacteria (Auto) Urine Yeast SARS-CoV-2, RNA, NAAT NEGATIVE 05/27/21 05/27/21 05/27/21 15:17 15:17 15:17 WBC RBC Hgb Hct MCV MCH MCHC RDW Std Deviation RDW Coeff of Nadira Plt Count MPV Immature Gran % (Auto) Neut % (Auto) Lymph % (Auto) [place] % (Auto) Eos % (Auto) Baso % (Auto) Neut # (Auto) Lymph # (Auto) [place] # (Auto) Eos # (Auto) Baso # (Auto) Immature Gran # (Auto) Platelet Estimate Poikilocytosis ESR Sodium Potassium Chloride Carbon Dioxide Anion Gap BUN Creatinine Est Cr Clr Drug Dosing Est GFR ( Amer) Est GFR (Non-Af Amer) BUN/Creatinine Ratio Glucose Lactate Calcium Magnesium Total Bilirubin AST ALT Alkaline Phosphatase C-Reactive Protein Total Protein Albumin Globulin Albumin/Globulin Ratio 25-OH Vitamin D Total 39.2 Vit D 1,25-Dihyd Total Pending 1,25 Dihydroxy Vit D2 Pending 1,25 Dihydroxy Vit D3 Pending Procalcitonin PTH Intact < 6.3 L PTH Related Protein Pending Urine Color Urine Appearance Urine pH Ur Specific [place] Urine Protein Urine Glucose (UA) Urine Ketones Urine Blood Urine Nitrite Urine Bilirubin Urine Urobilinogen Ur Leukocyte Esterase Urine WBC (Auto) Urine RBC (Auto) U Hyaline Cast (Auto) U Epithel Cells (Auto) Urine Bacteria (Auto) Urine Yeast SARS-CoV-2, RNA, NAAT 05/27/21 05/27/21 05/27/21 17:21 17:34 23:26 WBC RBC Hgb Hct MCV MCH MCHC RDW Std Deviation RDW Coeff of Nadira Plt Count MPV Immature Gran % (Auto) Neut % (Auto) Lymph % (Auto) [place] % (Auto) Eos % (Auto) Baso % (Auto) Neut # (Auto) Lymph # (Auto) [place] # (Auto) Eos # (Auto) Baso # (Auto) Immature Gran # (Auto) Platelet Estimate Poikilocytosis ESR > 130 H Sodium Potassium Chloride Carbon Dioxide Anion Gap BUN Creatinine 0.72 Est Cr Clr Drug Dosing 93.5 Est GFR ( Amer) 114.3 Est GFR (Non-Af Amer) 98.6 BUN/Creatinine Ratio Glucose Lactate 0.6 Calcium Magnesium Total Bilirubin AST ALT Alkaline Phosphatase C-Reactive Protein Total Protein Albumin Globulin Albumin/Globulin Ratio 25-OH Vitamin D Total Vit D 1,25-Dihyd Total 1,25 Dihydroxy Vit D2 1,25 Dihydroxy Vit D3 Procalcitonin PTH Intact PTH Related Protein Urine Color Urine Appearance Urine pH Ur Specific [place] Urine Protein Urine Glucose (UA) Urine Ketones Urine Blood Urine Nitrite Urine Bilirubin Urine Urobilinogen Ur Leukocyte Esterase Urine WBC (Auto) Urine RBC (Auto) U Hyaline Cast (Auto) U Epithel Cells (Auto) Urine Bacteria (Auto) Urine Yeast SARS-CoV-2, RNA, NAAT 05/27/21 05/28/21 05/28/21 Unknown 05:46 05:46 WBC 4.56 L RBC 2.16 L Hgb 6.0 L* Hct 18.8 L* MCV 87.0 MCH 27.8 MCHC 31.9 L RDW Std Deviation 52.6 H RDW Coeff of Nadira 16.3 H Plt Count 79 L MPV 9.3 Immature Gran % (Auto) 2.9 Neut % (Auto) 84.2 Lymph % (Auto) 6.6 [place] % (Auto) 5.9 Eos % (Auto) 0.4 Baso % (Auto) 0.0 Neut # (Auto) 3.84 Lymph # (Auto) 0.30 L [place] # (Auto) 0.27 Eos # (Auto) 0.02 Baso # (Auto) 0.00 Immature Gran # (Auto) 0.13 H Platelet Estimate Decreased L Poikilocytosis Present ESR Sodium 135 L Potassium 3.3 L Chloride 100 Carbon Dioxide 28 Anion Gap 7.0 BUN 16 Creatinine 0.63 Est Cr Clr Drug Dosing 106.9 Est GFR ( Amer) 120.7 Est GFR (Non-Af Amer) 104.1 BUN/Creatinine Ratio 26.1 H Glucose 109 H Lactate Calcium 11.2 H D Magnesium Total Bilirubin 0.6 AST 35 ALT 7 L Alkaline Phosphatase 505 H D C-Reactive Protein Total Protein 6.2 L Albumin 2.0 L Globulin 4.2 H Albumin/Globulin Ratio 0.5 L 25-OH Vitamin D Total Vit D 1,25-Dihyd Total 1,25 Dihydroxy Vit D2 1,25 Dihydroxy Vit D3 Procalcitonin PTH Intact PTH Related Protein Urine Color [place] Urine Appearance Turbid A Urine pH 6.5 Ur Specific [place] 1.015 Urine Protein 2+ H Urine Glucose (UA) Negative Urine Ketones Trace H Urine Blood 3+ H Urine Nitrite Negative Urine Bilirubin 1+ H Urine Urobilinogen Negative Ur Leukocyte Esterase 3+ H Urine WBC (Auto) >30 H Urine RBC (Auto) >30 H U Hyaline Cast (Auto) 0 U Epithel Cells (Auto) >30 H Urine Bacteria (Auto) 4+ H Urine Yeast Not Reportable SARS-CoV-2, RNA, NAAT PG Care Time/CCT Total # of Minutes Spent Total Time Spent with Patient: Total time spent is greater than 50% in coordination of care (as documented) at patient's floor/unit and/or counseling patient: Coding Level of Care Code 69469 Subseq Hosp Care Lvl 3 Diagnoses Hypercalcemia E83.52 Catheter-associated urinary tract infection T83.511A; N39.0 Acute urinary retention R33.8 Weakness R53.1 Prostate cancer metastatic to bone C61; C79.51 Fecal impaction K56.41 Acute metabolic encephalopathy G93.41 Pancytopenia D61.818 Anemia D64.9 Hypokalemia E87.6 DVT prophylaxis Z29.9
[2021-05-28] MEDS ORDERED: SODIUM CHLORIDE 0.9% 250 ML IV PRN (11:24)
--- NOTE | 2021-05-28 11:25 | CT Scan Report ---
CT head/brain wo con CLINICAL HISTORY: prostate ca; h/o brain mets; altered MS Technique: Contiguous axial CT images of the head were acquired from the base of the skull to the patricia amanda without intravenous contrast administration. Images were viewed in brain, subdural and bone windo ws. Automated dose lowering techniques and/or adjustment according to patient size were utilized for this exam. Comparison: None available at the time of this dictation. Findings: The ventricles, basal cisterns, and cerebral sulci are normal. There is no acute intracranial hemorrh age or evidence of acute territorial infarction. Neither mass effect, shift of the midline structures , nor abnormal extra-axial fluid collections are shown. Imaged portions of the paranasal sinuses and mastoid air cells are clear. The orbits appear normal. There are no acute fractures of the calvaria or scalp swelling. Impression: No acute intracranial hemorrhage, no evidence of acute territorial infarction or other acute intracra nial disease process. ACT 112: Negative or not required by law. Electronically signed by: Jassi Diehl M.D. 05/28/2021 11:23 AM
[2021-05-28] MEDS ORDERED: ACETAMINOPHEN 500 MG TAB PO ONE (11:45)
[2021-05-28] MEDS ORDERED: FUROSEMIDE INJ 20 MG/2 ML VIAL IV ONE ×2 (14:45→18:33)
--- NOTE | 2021-05-28 15:18 | Consultation Report ---
ONCOLOGY CONSULTATION REASON FOR CONSULT: Metastatic prostate cancer with hypercalcemia. HISTORY OF PRESENT ILLNESS: The patient is a very unfortunate 66-year-old gentleman with history of metastatic prostate cancer for which he has received multiple lines of treatments and was most recent ly on nivolumab/enzalutamide under the care of medical oncologist, Dr. Salas at [facility] as well as Dr. Teri magana with [facility]. Patient presented with altered mental status and significant fatigue. Labs obtained in the ER was significant for hypercalcemia with corrected calcium of 15.2. On admission, he was place d on IV fluids, given calcitonin as well as pamidronate IV. During my evaluation of patient today, jian akhtar appeared confused and could not obtain much of a history from him. PAST MEDICAL HISTORY: Metastatic prostate cancer. PAST SURGICAL HISTORY: Shoulder repair and herniated disk repair. SOCIAL HISTORY: He is a former smoker. No history of alcohol or illicit drug use. FAMILY HISTORY: Noncontributory. ALLERGIES: LEVOTHYROXINE. MEDICATIONS: Prior to admission: 1. Gabapentin 100 mg p.o. t.i.d. 2. Ferrous sulfate 325 mg p.o. every day. 3. Folic acid 400 mcg p.o. every day. 4. Relugolix 120 mg p.o. every day. 5. Vitamin B12 and folate supplementation. 6. Enzalutamide 160 mg p.o. daily. REVIEW OF SYSTEMS: Unable to obtain. PHYSICAL EXAMINATION: CONSTITUTIONAL: Cachectic looking gentleman who is frail looking. EYES: Negative for icterus or erythema. ENT: Negative for masses. NECK: Exam negative for palpable masses or lymphadenopathy. RESPIRATORY: Lung sounds were generally clear bilaterally. CARDIOVASCULAR: Heart was regular rate and rhythm without significant murmur, gallops, or rubs. GASTROINTESTINAL: Abdomen is soft, nontender with normal bowel sounds and no palpable hepatosplenome gregory. LYMPHATIC: No palpable peripheral lymphadenopathy. EXTREMITIES: Negative for edema. LABORATORY DATA: CBC significant for white cell count of 4.5, hemoglobin of 6.0, hematocrit of 18.8, MCV of 87, platelet count of 79,000. Chemistry revealed sodium 135, potassium 3.3, chloride 100, bi carbonate 28, BUN 16, creatinine 0.63, calcium improved from 15.2-12.8, alkaline phosphatase 505. IMAGING IMPRESSION: CT head, no acute intracranial hemorrhage, no evidence of acute territorial infa rction or other acute intracranial disease process. IMPRESSION: 1. 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 2. Hypercalcemia of malignancy. 3. Anemia and thrombocytopenia. Very unfortunate 66-year-old gentleman with metastatic prostate cancer, which has been resistant to m ultiple lines of treatment, now admitted with hypercalcemia of malignancy. Hypercalcemia seems to be improving with IV hydration, calcitonin and pamidronate. Given the overall picture, his prognosis i s very poor. Would recommend family highly consider supportive care/hospice. We will, however, defe r to his primary oncologist at [facility] and at [facility] for overall plan of care. Thank you for this consult. Oncology will continue following the patient while in the hospital. Ple ase feel free to call if you have any further questions. Job ID: [id number]
[2021-05-28] MEDS: ONDANSETRON INJ 2 MG/ML 2 ML VIAL IV PRN ×2 (16:54→16:55)
[2021-05-29] MEDS: CEFEPIME 2,000 MG in SYRINGE 0 ML IV SCH ×2 (01:30→09:51)
[2021-05-29 06:03] LABS: Hematocrit (blood only) 25.7 % (42-52); Hemoglobin 8.5 g/dL (14.0-18.0); Mean Corpuscular Hemoglobin 28.8 pg (25-34); Mean Corpuscular Hgb Conc 33.1 g/dL (32-36); Mean Corpuscular Volume 87.1 fL (80-100); RDW Coefficient of Variation 15.3 % (11.5-14.5); RDW Standard Deviation 49.3 fL (36.4-46.3); Red Blood Count 2.95 M/uL (4.7-6.1); White Blood Count 6.18 K/uL (4.8-10.8)
[2021-05-29] MEDS: POTASSIUM CHLORIDE 20 MEQ in LACTATED RINGER'S 1,000 ML IV SCH ×2 (06:08→20:24)
[2021-05-29 06:30] LABS: Mean Platelet Volume 9.1 fL (7.4-10.4); Platelet Count 78 K/uL (130-400)
[2021-05-29 06:35] LABS: BUN Creatinine Ratio 24.7 (10-20); Calcium 10.9 mg/dl (8.5-10.1); Creatinine Clr Calc Pharmacy 114.1 ml/min; Potassium 3.6 mmol/L (3.5-5.1)
[2021-05-29 06:46] LABS: Thyroid Stimulating Hormone 9.63 uIu/ml (0.300-4.500)
[2021-05-29 06:58] LABS: T4 Free Thyroxine 1.19 ng/dl (0.8-1.6)
[2021-05-29 07:40] LABS: Folate (Folic Acid) 11.2 ng/ml (>5.38)
[2021-05-29] MEDS: GABAPENTIN 100 MG CAP PO SCH ×3 (08:20→20:31)
[2021-05-29] MEDS: DOCUSATE SODIUM/SENNA 50/8.6MG TAB PO SCH (08:20)
[2021-05-29] MEDS: ENOXAPARIN INJ 40 MG/0.4 ML SYR SQ SCH (08:20)
[2021-05-29] MEDS: POLYETHYLENE (MIRALAX) 17 GM PACK PO SCH ×3 (08:20→20:31)
[2021-05-29] MEDS ORDERED: CALCITONIN SALMON 400 UNITS/2 ML SQ ONE (10:52)
[2021-05-29] MEDS ORDERED: FUROSEMIDE INJ 20 MG/2 ML VIAL IV ONE ×2 (11:00→14:45)
[2021-05-29] MEDS ORDERED: CALCITONIN SALMON 250 UNITS in SYRINGE 0 ML SQ ONE (11:45)
[2021-05-29] MEDS: ONDANSETRON INJ 2 MG/ML 2 ML VIAL IV PRN (16:18)
[2021-05-29] MEDS: cephALEXin 500 MG CAP PO SCH (20:31)
--- NOTE | 2021-05-29 21:49 | Hospitalist Progress Note ---
Date of Service May 29, 2021 Assessment & Plan (1) Hypercalcemia: Plan: 2nd to prostate cancer. Severe. slowly improving calcium levels. intact PTH low c/w cancer-driven hypercalcemia. s/p pamidronate infusion at admission along with calcitonin and IV fluids. repeated the calcitonin yesterday and will do so again today. cont IVF. will also give a dose of IV lasix. 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 (2) Anemia: Plan: multifactorial but his advanced cancer likely the largest culprit. Tx 2 units PRBCS yesterday with improved H/H. cbc am. (3) Acute metabolic encephalopathy: Plan: hypercalcemia, UTI, etc likely all contributing. MRI brain previously showed brain mets - ordered CT head - negative for obvious lesions. patient had been quite lethargic much of the stay - now awake, but still altered. (4) Catheter-associated urinary tract infection: Plan: 2nd klebsiella stop cefepime switch to PO keflex 500mg BID (5) Acute urinary retention: Plan: serrato exchanged in the urology office earlier this week cont current serrato (6) Weakness: Plan: Suspect multifactorial High calcium likely the largest instigator PT/OT evals when able to participate (7) Prostate cancer metastatic to bone: Plan: Progressive disease despite anti-androgen therapy Currently receiving Xtandi and Orgovyx Now has mets to his lymph nodes and liver Very poor prognosis Oncology consult appreciated Strongly consider palliative consultation while hospitalized to refine goals of care Remains DNR spoke with Parisa pt's significant other, and he is enrolled in a clinical trial at [facility] he is to receive his first treatment in early June 2020 repeat labs am treat high calcium (8) Fecal impaction: Plan: Suspect secondary to opiate use and hypercalcemia Bowel maintenance needed did finally have a stool (9) Pancytopenia: Plan: etiology? b12/folate wnl TSH mildly high c/w mild hypothyroidism - this could be contributing (10) Hypokalemia: Plan: replaced and improved (11) DVT prophylaxis: Plan: lovenox Plan: pt's significant other extensively updated by phone once again this evening Admission and Anticipated Discharge Date Admission Date: May 27, 2021 Subjective patient much more awake today -- eyes open, attempts to answer all questions however - he remains very confused is not oriented didn't even realize he was in the hospital denied pain in any location Review of Systems Review of Systems: Unobtainable due to cognitive status Physical Exam Physical Exam: gen - more awake today but still confused, unwell appearing, weak appearing mouth - MM still dry neck - no JVD heart - RRR, s1 s2, no murmur lungs - CTA b/l abd - soft, nontender, BS+, no HSM ext - no edema, pulses 2+ b/l psych - oriented to person only Results & Data Results & Data ([facility]) Vital Signs (Past 12 Hours) Vital Signs Temp Pulse Pulse Resp BP Pulse Ox 05/29/21 19:00 36.5 C 85 19 147/78 H 96 05/29/21 18:34 84 05/29/21 16:26 87 05/29/21 16:13 87 05/29/21 15:18 36.6 C 86 18 124/68 95 05/29/21 11:11 36.7 C 83 20 119/68 94 05/29/21 10:00 36.8 C 84 18 130/69 Laboratory Results Laboratory Results - last 24 hr 05/29/21 05/29/21 05/29/21 05:33 05:33 05:33 WBC 6.18 RBC 2.95 L Hgb 8.5 L Hct 25.7 L MCV 87.1 MCH 28.8 MCHC 33.1 RDW Std Deviation 49.3 H RDW Coeff of Nadira 15.3 H Plt Count 78 L MPV 9.1 Sodium Cancelled Potassium Cancelled Chloride Cancelled Carbon Dioxide Cancelled Anion Gap Cancelled BUN Cancelled Creatinine Cancelled Est Cr Clr Drug Dosing Cancelled Est GFR ( Amer) Cancelled Est GFR (Non-Af Amer) Cancelled BUN/Creatinine Ratio Cancelled Glucose Cancelled Calcium Cancelled Vitamin B12 1174 H Folate 11.20 TSH Free T4 05/29/21 05:33 WBC RBC Hgb Hct MCV MCH MCHC RDW Std Deviation RDW Coeff of Nadira Plt Count MPV Sodium 137 Potassium 3.6 Chloride 102 Carbon Dioxide 28 Anion Gap 7.0 BUN 14 Creatinine 0.59 L Est Cr Clr Drug Dosing 114.1 Est GFR ( Amer) 124.0 Est GFR (Non-Af Amer) 107.0 BUN/Creatinine Ratio 24.7 H Glucose 97 Calcium 10.9 H Vitamin B12 Folate TSH 9.630 H Free T4 1.19 PG Care Time/CCT Total # of Minutes Spent Total Time Spent with Patient: Total time spent is greater than 50% in coordination of care (as documented) at patient's floor/unit and/or counseling patient: Coding Level of Care Code 14003 Subseq Hosp Care Lvl 3 Diagnoses Hypercalcemia E83.52 Anemia D64.9 Acute metabolic encephalopathy G93.41 Catheter-associated urinary tract infection T83.511A; N39.0 Acute urinary retention R33.8 Weakness R53.1 Prostate cancer metastatic to bone C61; C79.51 Fecal impaction K56.41 Pancytopenia D61.818 Hypokalemia E87.6 DVT prophylaxis Z29.9
[2021-05-30 05:57] LABS: Hematocrit (blood only) 26.2 % (42-52); Hemoglobin 8.5 g/dL (14.0-18.0); Mean Corpuscular Hemoglobin 28.8 pg (25-34); Mean Corpuscular Hgb Conc 32.4 g/dL (32-36); Mean Corpuscular Volume 88.8 fL (80-100); RDW Coefficient of Variation 15.7 % (11.5-14.5); RDW Standard Deviation 51.7 fL (36.4-46.3); Red Blood Count 2.95 M/uL (4.7-6.1); White Blood Count 5.48 K/uL (4.8-10.8)
[2021-05-30 06:12] LABS: Mean Platelet Volume 9.9 fL (7.4-10.4); Platelet Count 74 K/uL (130-400)
[2021-05-30 06:38] LABS: Calcium 9.6 mg/dl (8.5-10.1); Creatinine Clr Calc Pharmacy 124.7 ml/min; Est GFR (African American) 128.6 ml/min; Potassium 3.7 mmol/L (3.5-5.1)
[2021-05-30] MEDS: POLYETHYLENE (MIRALAX) 17 GM PACK PO SCH ×2 (08:30→20:31)
[2021-05-30] MEDS: GABAPENTIN 100 MG CAP PO SCH ×3 (08:30→20:31)
[2021-05-30] MEDS: DOCUSATE SODIUM/SENNA 50/8.6MG TAB PO SCH (08:30)
[2021-05-30] MEDS: ENOXAPARIN INJ 40 MG/0.4 ML SYR SQ SCH (08:30)
[2021-05-30] MEDS: cephALEXin 500 MG CAP PO SCH ×2 (08:30→20:31)
[2021-05-30] MEDS: POTASSIUM CHLORIDE 20 MEQ in LACTATED RINGER'S 1,000 ML IV SCH ×2 (09:54→23:08)
--- NOTE | 2021-05-30 13:34 | Hospitalist Progress Note ---
Date of Service May 30, 2021 Assessment & Plan (1) Hypercalcemia: Plan: 2nd to prostate cancer. Severe. nicely improving calcium levels to date. peak total calcium level was 13.9. intact PTH low c/w cancer-driven hypercalcemia. s/p pamidronate infusion at admission along with calcitonin and IV fluids. repeated the calcitonin 2 additional times for total 3 doses since admission. cont IVF 1 more day. hold on additional lasix or calcitonin today. 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 BMP am. (2) Anemia: Plan: multifactorial but his advanced cancer likely the largest culprit. Tx 2 units PRBCS earlier this admission with improved H/H and stable counts since. cbc am. (3) Acute metabolic encephalopathy: Plan: hypercalcemia, UTI, etc likely all contributing. MRI brain previously showed brain mets - ordered CT head - negative for obvious lesions. slowly improving although not back to baseline. checked ammonia level - negative. (4) Catheter-associated urinary tract infection: Plan: 2nd klebsiella cont keflex 500mg BID needs SAKSHI - r/o prostatitis. (5) Acute urinary retention: Plan: serrato exchanged in the urology office earlier this week cont current serrato (6) Weakness: Plan: Suspect multifactorial High calcium likely the largest instigator PT/OT evals appreciated - very weak with activity (7) Prostate cancer metastatic to bone: Plan: Progressive disease despite anti-androgen therapy Currently receiving Xtandi and Orgovyx Now has mets to his lymph nodes and liver Very poor prognosis Oncology consult appreciated Strongly consider palliative consultation while hospitalized to refine goals of care Remains DNR spoke with Parisa pt's significant other, and he is enrolled in a clinical trial at [facility] he is to receive his first treatment in early June 2020 uncertain if he can tolerate those treatments given his failure to thrive, etc. repeat labs am cont to treat high calcium (8) Fecal impaction: Plan: Suspect secondary to opiate use and hypercalcemia cont Bowel maintenance (9) Pancytopenia: Plan: etiology? b12/folate wnl TSH mildly high c/w mild hypothyroidism - this could be contributing however, h/o allergy to levothyroxine? (10) Hypokalemia: Plan: replaced and resolved (11) DVT prophylaxis: Plan: lovenox cautiously continue such given trending down platelet level Plan: pt's significant other extensively updated by phone once again this evening questions answered Admission and Anticipated Discharge Date Admission Date: May 27, 2021 Subjective according to staff patient was in the chair from after breakfast through lunch time after lunch got back in bed I saw him after lunch-time he was sleepy - able to wake up - followed commands, still confused, couldn't tell me the year/date/etc denied pain in any location appetite still poor tele wnl Review of Systems Review of Systems: gen - fatigue, weak cv - no cp pulm - no cough/congestion/dyspnea GI - no N/V/diarrhea; no abd pain Physical Exam Physical Exam: gen - awake, follows commands; but still confused mouth - no thrush neck - no JVD heart - RRR, s1 s2, no murmur lungs - CTA b/l abd - soft, nontender, BS+, no HSM ext - no edema, pulses 2+ b/l psych - oriented to person only neuro - mild asterixis Results & Data Results & Data ([facility]) Vital Signs (Past 12 Hours) Vital Signs Temp Pulse Pulse Resp BP BP Pulse Ox 05/30/21 11:00 36.5 C 94 H 16 114/70 98 05/30/21 07:19 36.5 C 85 18 114/54 L 96 05/30/21 04:41 90 05/30/21 03:00 36.4 C L 85 19 119/66 96 Laboratory Results corrected calcium 10.9 Cr wnl Na wnl K wnl CBC acceptable PG Care Time/CCT Total # of Minutes Spent Total Time Spent with Patient: Total time spent is greater than 50% in coordination of care (as documented) at patient's floor/unit and/or counseling patient: Coding Level of Care Code 72636 Subseq Hosp Care Lvl 2 Diagnoses Hypercalcemia E83.52 Anemia D64.9 Acute metabolic encephalopathy G93.41 Catheter-associated urinary tract infection T83.511A; N39.0 Acute urinary retention R33.8 Weakness R53.1 Prostate cancer metastatic to bone C61; C79.51 Fecal impaction K56.41 Pancytopenia D61.818 Hypokalemia E87.6 DVT prophylaxis Z29.9
[2021-05-31 07:04] LABS: Hemoglobin 8.4 g/dL (14.0-18.0); Mean Corpuscular Hemoglobin 28.4 pg (25-34); Mean Corpuscular Hgb Conc 32.3 g/dL (32-36); Mean Corpuscular Volume 87.8 fL (80-100); RDW Coefficient of Variation 16.2 % (11.5-14.5); Red Blood Count 2.96 M/uL (4.7-6.1); White Blood Count 4.51 K/uL (4.8-10.8)
[2021-05-31 07:07] LABS: Mean Platelet Volume 9.2 fL (7.4-10.4); Platelet Count 57 K/uL (130-400)
[2021-05-31 07:36] LABS: Basophils # (auto) 0.01 K/uL (0-0.2); Basophils % (auto) 0.2 %; Eosinophils % (auto) 2.2 %; Immature Granulocytes # (auto) 0.29 K/uL (0.00-0.02); Immature Granulocytes % (auto) 6.4 %; Lymphocytes # (auto) 0.37 K/uL (1.2-3.4); Lymphocytes % (auto) 8.2 %; Monocytes # (auto) 0.35 K/uL (0.11-0.59); Monocytes % (auto) 7.8 %; Neutrophils # (auto) 3.39 K/uL (1.4-6.5); Neutrophils % (auto) 75.2 %
[2021-05-31 07:45] LABS: BUN Creatinine Ratio 26.5 (10-20); Calcium 9.1 mg/dl (8.5-10.1); Creatinine Clr Calc Pharmacy 143.3 ml/min; Est GFR (African American) 136.2 ml/min; Est GFR (Non-African American) 117.5 ml/min
[2021-05-31] MEDS: POLYETHYLENE (MIRALAX) 17 GM PACK PO SCH ×2 (07:51→20:51)
[2021-05-31] MEDS: DOCUSATE SODIUM/SENNA 50/8.6MG TAB PO SCH (07:51)
[2021-05-31] MEDS: cephALEXin 500 MG CAP PO SCH ×2 (07:53→20:51)
[2021-05-31] MEDS: GABAPENTIN 100 MG CAP PO SCH ×3 (07:53→20:51)
[2021-05-31] MEDS: ENOXAPARIN INJ 40 MG/0.4 ML SYR SQ SCH (07:53)
[2021-05-31] MEDS: ONDANSETRON INJ 2 MG/ML 2 ML VIAL IV PRN (15:00)
--- NOTE | 2021-05-31 22:23 | Hospitalist Progress Note ---
Date of Service May 31, 2021 Assessment & Plan (1) Hypercalcemia: Plan: 2nd to prostate cancer. Severe. Resolved. peak total calcium level was 13.9. intact PTH low c/w cancer-driven hypercalcemia. s/p pamidronate infusion at admission along with calcitonin and IV fluids. repeated the calcitonin 2 additional times for total 3 doses since admission. also received lasix. High calcium was likely the major auto crane driver of his altered MS which is now resolved. BMP am. STOP IVF. (2) Anemia: Plan: multifactorial but his advanced cancer likely the largest culprit. Tx 2 units PRBCS earlier this admission with improved/stable H/H since then. cbc am. (3) Acute metabolic encephalopathy: Plan: resolved. likely due to combination of hypercalcemia + UTI. CT head neg. ammonia level neg. (4) Catheter-associated urinary tract infection: Plan: 2nd klebsiella cont keflex 500mg BID needs SAKSHI - r/o prostatitis. (5) Acute urinary retention: Plan: serrato exchanged in the urology office last week for such cont current serrato (6) Weakness: Plan: Suspect multifactorial High calcium likely the largest instigator PT/OT evals appreciated - modest improvement in walking today based on therapy notes (7) Prostate cancer metastatic to bone: Plan: Progressive disease despite anti-androgen therapy Currently receiving Xtandi and Orgovyx Now has mets to his lymph nodes and liver Very poor prognosis Oncology consult appreciated Consider palliative consultation while hospitalized to refine goals of care Remains DNR spoke with Parisa pt's significant other, and he is enrolled in a clinical trial at [facility] he is to receive his first treatment in early June 2020 uncertain if he can tolerate those treatments given his failure to thrive, etc. repeat labs am fortunately denies any bone pain today (8) Fecal impaction: Plan: Secondary to opiate use and hypercalcemia resolved Cont Bowel maintenance (9) Pancytopenia: Plan: etiology? b12/folate wnl TSH mildly high c/w mild hypothyroidism - this could be contributing however, h/o allergy to levothyroxine? platelets continue to trend down uncertain cause repeat CBC in am HOLD lovenox (10) Hypokalemia: Plan: replaced and resolved (11) Severe protein-calorie malnutrition: Plan: >10% weight loss over last few months 2nd to advanced prostate ca (12) DVT prophylaxis: Plan: hold lovenox due to dropping platelets Plan: pt's significant other extensively updated by phone yesterday evening questions answered progressing Admission and Anticipated Discharge Date Admission Date: May 27, 2021 Subjective patient very awake/alert during the visit he was oriented x 3 he states he doesn't recall anything that occurred yesterday or anything prior his appetite is improving - his girlfriend brought fast food and he did eat some denies pain in any location - back, limbs, chest or abdomen; no headache feels that he did better with PT today tele overnight wnl Review of Systems Review of Systems: gen - weak, fatigue, no fevers CV - no chest pain, no orthopnea pulm - no cough or congestion GI - had 2 bowel movements today; no abd pain; no N/V Physical Exam Physical Exam: gen - awake, alert, oriented x 3; best he has looked all week mouth - no thrush, MMM neck - no JVD heart - RRR, s1 s2, no murmur lungs - CTA b/l abd - soft, nontender, BS+, no HSM ext - no edema, pulses 2+ b/l psych - oriented x 3 skin - incision left shoulder C/D/I; incision/wounds left hip C/D/I Results & Data Results & Data ([facility]) Vital Signs (Past 12 Hours) Vital Signs Temp Pulse Resp BP Pulse Ox 05/31/21 19:25 36.6 C 90 18 118/65 96 05/31/21 15:14 36.4 C L 84 20 127/77 98 05/31/21 11:32 36.8 C 84 20 128/76 99 Laboratory Results Laboratory Results - last 24 hr 05/31/21 05/31/21 06:32 06:32 WBC 4.51 L RBC 2.96 L Hgb 8.4 L Hct 26.0 L MCV 87.8 MCH 28.4 MCHC 32.3 RDW Std Deviation 52.0 H RDW Coeff of Nadira 16.2 H Plt Count 57 L MPV 9.2 Immature Gran % (Auto) 6.4 Neut % (Auto) 75.2 Lymph % (Auto) 8.2 [place] % (Auto) 7.8 Eos % (Auto) 2.2 Baso % (Auto) 0.2 Neut # (Auto) 3.39 Lymph # (Auto) 0.37 L [place] # (Auto) 0.35 Eos # (Auto) 0.10 Baso # (Auto) 0.01 Immature Gran # (Auto) 0.29 H Sodium 134 L Potassium 4.0 Chloride 104 Carbon Dioxide 23 Anion Gap 7.0 BUN 12 Creatinine 0.47 L Est Cr Clr Drug Dosing 143.3 Est GFR ( Amer) 136.2 Est GFR (Non-Af Amer) 117.5 BUN/Creatinine Ratio 26.5 H Glucose 92 Calcium 9.1 PG Care Time/CCT Total # of Minutes Spent Total Time Spent with Patient: Total time spent is greater than 50% in coordination of care (as documented) at patient's floor/unit and/or counseling patient: Coding Level of Care Code 95280 Subseq Hosp Care Lvl 2 Diagnoses Hypercalcemia E83.52 Anemia D64.9 Acute metabolic encephalopathy G93.41 Catheter-associated urinary tract infection T83.511A; N39.0 Acute urinary retention R33.8 Weakness R53.1 Prostate cancer metastatic to bone C61; C79.51 Fecal impaction K56.41 Pancytopenia D61.818 Hypokalemia E87.6 DVT prophylaxis Z29.9 Severe protein-calorie malnutrition E43
[2021-06-01 07:26] LABS: Hematocrit (blood only) 25.3 % (42-52); Hemoglobin 8.1 g/dL (14.0-18.0); Mean Corpuscular Volume 87.5 fL (80-100); RDW Coefficient of Variation 16.4 % (11.5-14.5); RDW Standard Deviation 53.3 fL (36.4-46.3); Red Blood Count 2.89 M/uL (4.7-6.1); White Blood Count 4.03 K/uL (4.8-10.8)
[2021-06-01 07:44] LABS: Mean Platelet Volume 8.9 fL (7.4-10.4); Platelet Count 52 K/uL (130-400)
[2021-06-01 07:58] LABS: BUN Creatinine Ratio 26.2 (10-20); Calcium 8.5 mg/dl (8.5-10.1); Creatinine Clr Calc Pharmacy 153.1 ml/min; Est GFR (African American) 139.9 ml/min; Est GFR (Non-African American) 120.7 ml/min; Potassium 3.8 mmol/L (3.5-5.1)
[2021-06-01] MEDS: POLYETHYLENE (MIRALAX) 17 GM PACK PO SCH ×2 (08:28→20:01)
[2021-06-01] MEDS: DOCUSATE SODIUM/SENNA 50/8.6MG TAB PO SCH (08:28)
[2021-06-01] MEDS: cephALEXin 500 MG CAP PO SCH ×2 (08:28→20:01)
[2021-06-01] MEDS: GABAPENTIN 100 MG CAP PO SCH ×3 (08:28→20:01)
[2021-06-01 12:03] LABS: Fibrinogen 245 mg/dl (184-400); INR 1.2 (0.9-1.1); Partial Thromboplastin Ratio 1.2; Partial Thromboplastin Time 30.6 Seconds (21.0-31.0); Prothrombin Time 11.6 Seconds (9.0-12.0)
[2021-06-01 12:28] LABS: D Dimer 16600 ug/L FEU (0-500)
--- NOTE | 2021-06-01 15:12 | Ultrasound Report ---
ULTRASOUND BILATERAL LOWER EXTREMITY VENOUS CLINICAL HISTORY: Elevated d-dimer. Prostate cancer COMPARISON STUDY: No priors. TECHNIQUE: Real-time, grayscale, and color Doppler sonography of the deep veins of the right and left lower extremity was performed from the inguinal crease to the calf. Compression and augmentation wer e utilized. FINDINGS: Right lower extremity: There is no sonographic evidence of deep venous thrombosis in the right lower extremity. The common femoral, superficial femoral, and popliteal veins are patent and normally compr essible. The greater saphenous vein and the profunda femoris vein at the junction with the common fem oral vein are clear. The visualized calf veins are patent. Left lower extremity: There is nonocclusive deep venous thrombosis in the left common femoral vein. T he superficial femoral and popliteal veins are patent and normally compressible. The greater saphenou s vein and the profunda femoris vein at the junction with the common femoral vein are clear. The visu alized calf veins are patent. IMPRESSION: 1. There is nonocclusive deep venous thrombosis in the left common femoral vein. 2. The remaining deep veins of the left lower extremity are clear. 3. There is no sonographic evidence of deep venous thrombosis in the right lower extremity. ACT 112: Negative or not required by law. Electronically signed by: Pa Ewing M.D. 06/01/2021 3:11 PM
--- NOTE | 2021-06-01 19:38 | Hospitalist Progress Note ---
Date of Service June 01, 2021 Assessment & Plan (1) Thrombocytopenia: Plan: patient's platelet counts have trended down over the last 2 weeks. had been 110-120 range, and steadily decreased to low of about 50 today without overt cause. peripheral smear w/o features of TTP. no clumping noted on smear. DIC w/u today - coags, dimer, fibrinogen, etc - NOT c/w DIC. MARKED elevation in d-dimer -- dopplers + DVT. Discussed the low platelets with Dr Smith, pt's primary oncologist. Low platelets perhaps combination of bone marrow infiltration of his cancer. Can't rule out consumption of platelets in setting of acute LLE DVT. Recent b12/folate wnl. CBC am. (2) Left leg DVT: Plan: common femoral vein DVT. discussed anticoagulation options with Dr Smith - will use lovenox 1mg/kg BID to start. low platelets will need to be watched very carefully. no evidence of PE clinically (no respiratory symptoms, o2 sats high 90s in RA). (3) Hypercalcemia: Plan: 2nd to prostate cancer. Severe. Resolved. peak total calcium level was 13.9. intact PTH low c/w cancer-driven hypercalcemia. s/p pamidronate infusion at admission along with calcitonin and IV fluids. repeated the calcitonin 2 additional times for total 3 doses since admission. also received lasix. PTH-related peptide is pending. High calcium was likely the major otr owner operator truck driver of his altered MS which is now resolved. BMP am. (4) Anemia: Plan: multifactorial but his advanced cancer likely the largest culprit. Tx 2 units PRBCS earlier this admission with improved/stable H/H since then. cbc am. (5) Acute metabolic encephalopathy: Plan: resolved. likely due to combination of hypercalcemia + UTI. CT head neg. ammonia level neg. (6) Catheter-associated urinary tract infection: Plan: 2nd klebsiella cont keflex 500mg BID needs SAKSHI - r/o prostatitis. (7) Acute urinary retention: Plan: serrato exchanged in the urology office last week for such cont current serrato (8) Weakness: Plan: Suspect multifactorial High calcium likely the largest instigator PT/OT evals appreciated - modest improvement in walking this week as his mental status improved (9) Prostate cancer metastatic to bone: Plan: Progressive disease despite anti-androgen therapy Currently receiving Xtandi and Orgovyx Now has mets to his lymph nodes and liver Very poor prognosis Oncology consult appreciated Consider palliative consultation while hospitalized to refine goals of care Remains DNR Patient is enrolled in a clinical trial at [facility] he is to receive his first treatment in early June 2020 uncertain if he can tolerate those treatments given his failure to thrive, etc. repeat labs am (10) Fecal impaction: Plan: Secondary to opiate use and hypercalcemia resolved Cont Bowel maintenance (11) Pancytopenia: Plan: etiology? b12/folate wnl TSH mildly high c/w mild hypothyroidism - this could be contributing however, h/o allergy to levothyroxine? 2nd to bone marrow infiltration by his cancer? peripheral smear findings noted by pathology. platelets continue to trend down see above #1 (12) Hypokalemia: Plan: replaced and resolved (13) Severe protein-calorie malnutrition: Plan: >10% weight loss over last few months 2nd to advanced prostate ca (14) DVT prophylaxis: Plan: lovenox Plan: pt's significant other extensively updated by phone this evening questions answered hopefully home with pt's children next couple of days if platelets remain stable Admission and Anticipated Discharge Date Admission Date: May 27, 2021 Subjective pt w/o complaints today except for restless legs type symptoms in BOTH legs generalized discomfort in both legs but not pain denies back pain, cp, abd pain awake/alert today eating poorly no dyspnea Review of Systems Review of Systems: gen - no fevers or chills; mild weakness CV - no orthopnea, no cp pulm - no cough or dyspnea GI - no abd pain, N/V; moving bowels Physical Exam Physical Exam: gen - awake, alert, oriented x 3; comfortable appearing mouth - no thrush, MMM neck - no JVD heart - RRR, s1 s2, no murmur lungs - CTA b/l abd - soft, nontender, BS+, no HSM ext - no edema, pulses 2+ b/l psych - oriented x 3 skin - incision left shoulder C/D/I; incision/wounds left hip C/D/I; no petechiae Results & Data Results & Data ([facility]) Vital Signs (Past 12 Hours) Vital Signs Temp Pulse Resp BP Pulse Ox 06/01/21 16:09 36.5 C 90 18 126/73 99 Laboratory Results Laboratory Results - last 24 hr 06/01/21 06/01/21 06/01/21 06:57 06:57 10:51 WBC 4.03 L RBC 2.89 L Hgb 8.1 L Hct 25.3 L MCV 87.5 MCH 28.0 MCHC 32.0 RDW Std Deviation 53.3 H RDW Coeff of Nadira 16.4 H Plt Count 52 L MPV 8.9 Peripher Smr Path Cons PT 11.6 INR 1.2 H APTT 30.6 PTT Ratio 1.2 Fibrinogen 245 Fibrin Degrad Products D-Dimer 57234 H* Sodium 136 Potassium 3.8 Chloride 103 Carbon Dioxide 23 Anion Gap 10.0 BUN 12 Creatinine 0.44 L Est Cr Clr Drug Dosing 153.1 Est GFR ( Amer) 139.9 Est GFR (Non-Af Amer) 120.7 BUN/Creatinine Ratio 26.2 H Glucose 88 Calcium 8.5 06/01/21 10:51 WBC RBC Hgb Hct MCV MCH MCHC RDW Std Deviation RDW Coeff of Nadira Plt Count MPV Peripher Smr Path Cons PT INR APTT PTT Ratio Fibrinogen Fibrin Degrad Products >40 H D-Dimer Sodium Potassium Chloride Carbon Dioxide Anion Gap BUN Creatinine Est Cr Clr Drug Dosing Est GFR ( Amer) Est GFR (Non-Af Amer) BUN/Creatinine Ratio Glucose Calcium Diagnostic Findings Venous Doppler Study 06/01/21 12:47 ULTRASOUND BILATERAL LOWER EXTREMITY VENOUS CLINICAL HISTORY: Elevated d-dimer. Prostate cancer COMPARISON STUDY: No priors. TECHNIQUE: Real-time, grayscale, and color Doppler sonography of the deep veins of the right and left lower extremity was performed from the inguinal crease to the calf. Compression and augmentation were utilized. FINDINGS: Right lower extremity: There is no sonographic evidence of deep venous thrombosis in the right lower extremity. The common femoral, superficial femoral, and popliteal veins are patent and normally compressible. The greater saphenous vein and the profunda femoris vein at the junction with the common femoral vein are clear. The visualized calf veins are patent. Left lower extremity: There is nonocclusive deep venous thrombosis in the left common femoral vein. The superficial femoral and popliteal veins are patent and normally compressible. The greater saphenous vein and the profunda femoris vein at the junction with the common femoral vein are clear. The visualized calf veins are patent. IMPRESSION: 1. There is nonocclusive deep venous thrombosis in the left common femoral vein. 2. The remaining deep veins of the left lower extremity are clear. 3. There is no sonographic evidence of deep venous thrombosis in the right lower extremity. ACT 112: Negative or not required by law. Electronically signed by: Pa Ewing M.D. 06/01/2021 3:11 PM PG Care Time/CCT Total # of Minutes Spent Total Time Spent with Patient: Total time spent is greater than 50% in coordination of care (as documented) at patient's floor/unit and/or counseling patient: Coding Level of Care Code 24549 Subseq Hosp Care Lvl 3 Diagnoses Hypercalcemia E83.52 Anemia D64.9 Acute metabolic encephalopathy G93.41 Catheter-associated urinary tract infection T83.511A; N39.0 Acute urinary retention R33.8 Weakness R53.1 Prostate cancer metastatic to bone C61; C79.51 Fecal impaction K56.41 Pancytopenia D61.818 Hypokalemia E87.6 Severe protein-calorie malnutrition E43 DVT prophylaxis Z29.9 Left leg DVT I82.402 Thrombocytopenia D69.6
[2021-06-01] MEDS: ENOXAPARIN INJ 60 MG/0.6 ML SYR SQ SCH (19:54)
[2021-06-01] MEDS: PRAMIPEXOLE DIHYDROCHLO 0.25 MG TAB PO SCH (20:01)
[2021-06-01] MEDS ORDERED: MELATONIN 3 MG TAB PO PRN (22:24)
[2021-06-02 08:07] LABS: Hematocrit (blood only) 26.3 % (42-52); Hemoglobin 8.6 g/dL (14.0-18.0); Mean Corpuscular Hemoglobin 28.4 pg (25-34); Mean Corpuscular Hgb Conc 32.7 g/dL (32-36); Mean Corpuscular Volume 86.8 fL (80-100); RDW Coefficient of Variation 16.3 % (11.5-14.5); RDW Standard Deviation 52.6 fL (36.4-46.3); Red Blood Count 3.03 M/uL (4.7-6.1); White Blood Count 3.94 K/uL (4.8-10.8)
[2021-06-02] MEDS: GABAPENTIN 100 MG CAP PO SCH ×3 (08:19→20:26)
[2021-06-02] MEDS: ENOXAPARIN INJ 60 MG/0.6 ML SYR SQ SCH ×2 (08:20→20:25)
[2021-06-02] MEDS: POLYETHYLENE (MIRALAX) 17 GM PACK PO SCH ×2 (08:20→20:26)
[2021-06-02] MEDS: cephALEXin 500 MG CAP PO SCH ×2 (08:21→20:26)
[2021-06-02 08:24] LABS: Mean Platelet Volume 10.4 fL (7.4-10.4); Platelet Count 58 K/uL (130-400)
[2021-06-02] MEDS: oxyCODONE HCL IR 5 MG TAB (IMMEDIATE RELEASE) PO PRN ×3 (08:25→22:17)
[2021-06-02] MEDS: DOCUSATE SODIUM/SENNA 50/8.6MG TAB PO SCH (08:25)
[2021-06-02 08:36] LABS: BUN Creatinine Ratio 26.9 (10-20); Calcium 8.6 mg/dl (8.5-10.1); Creatinine Clr Calc Pharmacy 156.6 ml/min; Est GFR (African American) 141.2 ml/min; Est GFR (Non-African American) 121.9 ml/min; Potassium 3.8 mmol/L (3.5-5.1)
--- NOTE | 2021-06-02 10:01 | Consultation Report ---
MEDICAL ONCOLOGY CONSULTATION DATE OF SERVICE: 06/02/2021. REASON FOR CONSULTATION: A 66-year-old gentleman with known metastatic prostate cancer. HISTORY OF PRESENT ILLNESS: Mr. Suresh is a pleasant 66-year-old unfortunate gentleman who is well kn own to [facility], currently under both [facility] and [facility]'s care for metastatic prostate cancer. I had actually last seen Corey on 05/20/2021 shortly after being hospitalized at the [facility] and underwent operative repair for compression fractures of the left upper and lower extremities. His hospitalization at that time was complicated. He was under anesthesia for a consid erable period of time. He subsequently became hypotensive requiring vasopressors and received hemodi alysis x3 as well. The therapy he had been receiving prior to hospitalization consisted of Xtandi an d nivolumab. He is ready to embark on a clinical trial using a new novel radioisotope at the [facility], probably after the New Year. Unfortunately, he has been in a steady clinical declin e, manifested by fatigue and increasing confusion. He has an indwelling Nice catheter, which has be en in place essentially from hospitalization in April. I was consulted by Dr. Ted fitch use of a couple of outstanding issues, particularly progressive thrombocytopenia and hypercalcemia. This gentleman had drop in counts during his hospital stay in [place] as well screened for ITP and TT P respectively. Recommended Dr. Moses order a DIC panel, which indeed showed a markedly elevated D-d julianna. Doppler studies confirmed left lower extremity common femoral vein DVT. Thus recommended Love nox 1 mg/kg b.i.d. to start. Mr. Suresh also manifested a hypercalcemia, which has since been correct ed. Upon my visit to his bedside this morning, Mr. Suresh is sitting up ready to enjoy breakfast. He is conversant, lucid. Answers questions appropriately. PAST MEDICAL HISTORY: Metastatic prostate cancer. Again, status post operative repair of pathologic fractures involving the left femur and left humerus. MEDICATIONS: Include gabapentin 100 mg p.o. t.i.d., ferrous sulfate 325 mg p.o. daily, folic acid 40 0 mcg p.o. daily, Relugolix 120 mg p.o. daily, vitamin B12 500 mcg with 400 mcg of folic acid 1 table t p.o. daily, enzalutamide 160 mg p.o. daily, cholecalciferol 25 mcg p.o. daily, hydromorphone 4 mg p .o. q. 6 hours p.r.n., mirtazapine 15 mg p.o. at bedtime, Zofran 4 mg p.o. q. 8 hours, oxycodone 20 m g p.o. t.i.d., tamsulosin 0.4 mg p.o. daily, terazosin 5 mg p.o. daily. ALLERGIES: LEVOTHYROXINE. SOCIAL HISTORY: The patient is . He is a prior assistant construction superintendent. Former smoker, non-illi cit drug user. FAMILY HISTORY: Noncontributory. REVIEW OF SYSTEMS: CONSTITUTIONAL: As per HPI, positive for cachexia, weight loss, anorexia. No fevers, chills, or swe ats. SKIN: No rashes or lesions. No history of dermatoses. HEENT: He denies headaches, lightheadedness, or dizziness. He wears corrective lenses. No hearing deficits. No sinus symptoms, sore throat, or dysphagia. LYMPHATICS: No history of lymphoproliferative disease. CARDIAC: No history of coronary artery disease: No current angina or palpitations. PULMONARY: No history of COPD. No shortness of breath, dyspnea, or orthopnea. No cough or hemoptys is. GASTROINTESTINAL: Negative for abdominal pain, nausea, vomiting, diarrhea or constipation, hematoche rupert or melena stools. GENITOURINARY: No hematuria, dysuria, urinary incontinence. PSYCHIATRIC: Negative for anxiety, depression, or psychoses. MUSCULOSKELETAL: Positive for recent pathologic fractures including the left humerus, left femur, st atus post ORIF. ENDOCRINE: Negative for diabetes or thyroid disease. NEUROLOGIC: Negative for seizure, stroke or migraine headache. HEMATOLOGIC: Positive for recent thrombosis, positive for thrombocytopenia and anemia. PHYSICAL EXAMINATION: GENERAL: A very pleasant 66-year-old. Awake, alert and appropriate, in no acute distress. VITAL SIGNS: Temperature 36.6, pulse 87, respiratory rate 18, blood pressure 121/66. EXTREMITIES: Warm, dry, noncyanotic without petechiae, rash or ecchymosis. HEENT: Atraumatic, normocephalic. Eyes: PERRLA. EOMI. Sclerae are nonicteric. No conjunctival in jection. Nares patent without rhinorrhea or discharge. Throat clear. Tongue midline. Mucous membr anes are moist. NECK: Supple without JVD or thyromegaly. LYMPHATIC: No cervical or supraclavicular palpable nodes. HEART: Regular rate and rhythm. No clicks, rubs, murmurs or gallops. LUNGS: Clear to auscultation bilaterally. ABDOMEN: Soft, nontender, nondistended, without palpable hepatosplenomegaly. EXTREMITIES: No calf tenderness or swelling. No clubbing, cyanosis, or edema. NEUROLOGIC: Awake, alert and oriented x3, otherwise focally intact. RADIOGRAPHIC DATA: CT scan of the abdomen and pelvis performed on 05/27/2021, interval development o f hepatomegaly and diffuse liver metastasis, marked blastic metastasis throughout the spine, pelvis, hips and ribs, pathologic rib fractures are seen. Extensive periaortic retroperitoneal mesenteric ly mphadenopathy also seen. Bilateral Doppler examination, nonocclusive deep vein thrombosis in the lef t common femoral vein. LABORATORY DATA: WBCs 4030, hemoglobin 8.1, platelet count 52,000. D-dimer 39478. Fibrin split pro ducts greater than 40. Sodium 136, potassium 3.8, chloride 103, carbon dioxide 23, creatinine 0.44, BUN 12. IMPRESSION: 1. Thrombocytopenia. 2. Progressive anemia. 3. Left lower extremity deep venous thrombosis (common femoral vein) 4. Hypercalcemia. 5. Metastatic prostate cancer. 6. Acute metabolic encephalopathy. PLAN: Dr. Moses asked me to evaluate Corey Suresh who has been admitted now over the past 6 days, [facility] in because of progressive weakness and confusion. The patient was found to be hypercalcemic, whi ch is not surprising. Now Mr. Suresh has had precipitous drop in both hemoglobin and platelets simila r to events while hospitalized at [place]. Thus far, there is no overt evidence of infection other t mcgill the catheter-associated urinary tract infection. The patient's mentation has improved since the calcium corrected. Deep venous thrombosis was diagnosed yesterday after a DIC panel revealed a marke dly elevated D-dimer and subsequent Doppler for confirmation. Appropriately, he is on Lovenox and pr obably should be converted to Coumadin moving forward. I suspect thrombocytopenia is more of a funct ion of infiltrating metastatic disease. There is no evidence of ongoing ITP or TTP. Thus, continue transfusional support per institutional protocol. Mr. Suresh plans on reconvening with physicians at [facility] upon discharge. I suspect he may have to go to step-down for rehabilitation. I agree with medical management otherwise and have no further recommendations. Thank you very much for allowing me to participate in Mr. Suresh's care. Job ID: [id number]
[2021-06-02] MEDS: PRAMIPEXOLE DIHYDROCHLO 0.25 MG TAB PO SCH (20:26)
--- NOTE | 2021-06-02 22:52 | Hospitalist Progress Note ---
Date of Service June 02, 2021 Assessment & Plan (1) Thrombocytopenia: Plan: patient's platelet counts have trended down over the last 2 weeks. had been 110-120 range, and steadily decreased to low of about 50 yesterday. today = 58. peripheral smear w/o features of TTP. no clumping noted on smear. DIC w/u - coags, dimer, fibrinogen, etc - NOT c/w DIC. MARKED elevation in d-dimer -- dopplers obtained of legs, + DVT of LLE. Discussed the low platelets with Dr Smith, pt's primary oncologist. Low platelets perhaps combination of bone marrow infiltration of his cancer. Can't rule out consumption of platelets in setting of acute LLE DVT. Recent b12/folate wnl. CBC am for stability. (2) Left leg DVT: Plan: common femoral vein DVT. discussed anticoagulation options with Dr Smith - will use lovenox 1mg/kg BID to start. low platelets will need to be watched very carefully. no evidence of PE clinically (no respiratory symptoms, o2 sats high 90s in RA). cbc in am. staff to start teaching patient lovenox technique spoke with Parisa his significant other -- family is comfortable with lovenox (3) Hypercalcemia: Plan: 2nd to prostate cancer. Severe. Resolved. total calcium today stable. peak total calcium level was 13.9. intact PTH low c/w cancer-driven hypercalcemia. s/p pamidronate infusion at admission along with calcitonin and IV fluids. repeated the calcitonin 2 additional times for total 3 doses since admission. also received lasix. PTH-related peptide is pending. High calcium was likely the major tour driver of his altered MS which is now resolved. BMP am. (4) Anemia: Plan: multifactorial but his advanced cancer likely the largest culprit. Tx 2 units PRBCS earlier this admission with improved/stable H/H since then. cbc am. (5) Acute metabolic encephalopathy: Plan: resolved. likely due to combination of hypercalcemia + UTI. CT head neg. ammonia level neg. (6) Catheter-associated urinary tract infection: Plan: 2nd klebsiella cont keflex 500mg BID needs SAKSHI - r/o prostatitis. will contact urology and discuss whether to replace catheter, leave it out completely, etc. (7) Acute urinary retention: Plan: serrato exchanged in the urology office last week for such cont current serrato see above (8) Weakness: Plan: Suspect multifactorial High calcium likely the largest instigator PT/OT kings appreciated - modest improvement in walking this week as his mental status improved he will have significant support at home - thus, can go home w/ children (9) Prostate cancer metastatic to bone: Plan: Progressive disease despite anti-androgen therapy Currently receiving Xtandi and Orgovyx Now has mets to his lymph nodes and liver Very poor prognosis Oncology consult appreciated Consider palliative consultation while hospitalized to refine goals of care Remains DNR Patient is enrolled in a clinical trial at [facility] he is to receive his first treatment in early June 2020 uncertain if he can tolerate those treatments given his failure to thrive, etc. repeat labs am (10) Fecal impaction: Plan: Secondary to opiate use and hypercalcemia resolved Cont Bowel maintenance (11) Pancytopenia: Plan: etiology? b12/folate wnl TSH mildly high c/w mild hypothyroidism - this could be contributing however, h/o allergy to levothyroxine? 2nd to bone marrow infiltration by his cancer? peripheral smear findings noted by pathology. platelets continue to trend down see above #[address] Smith's consult (12) Hypokalemia: Plan: replaced and resolved (13) Severe protein-calorie malnutrition: Plan: >10% weight loss over last few months 2nd to advanced prostate ca (14) DVT prophylaxis: Plan: lovenox Plan: pt's significant other extensively updated by phone this evening questions answered hopefully home with pt's children tomorrow Admission and Anticipated Discharge Date Admission Date: May 27, 2021 Subjective no events overnight denies complaints mirapex worked well for restless legs states he has a bodywide discomfort of "3-4" but denies wanting to reinitiate his oxycontin offered to do so - declined eating poor/fair mentation wnl Review of Systems Review of Systems: gen - no fevers or chills CV - no chest pain, no orthopnea pulm - no congestion or cough GI - no pain, N/V Physical Exam Physical Exam: gen - awake, alert, oriented x 3, pleasant mouth - no thrush, MMM neck - no JVD heart - RRR, s1 s2, no murmur lungs - CTA b/l abd - soft, nontender, BS+, no HSM ext - no edema, pulses 2+ b/l psych - oriented x 3 skin - pallor, no petechiae Results & Data Results & Data ([facility]) Vital Signs (Past 12 Hours) Vital Signs Temp Pulse Resp BP Pulse Ox 06/02/21 16:23 36.7 C 90 18 116/71 97 Laboratory Results Laboratory Results - last 24 hr 06/02/21 06/02/21 07:29 07:29 WBC 3.94 L RBC 3.03 L Hgb 8.6 L Hct 26.3 L MCV 86.8 MCH 28.4 MCHC 32.7 RDW Std Deviation 52.6 H RDW Coeff of Nadira 16.3 H Plt Count 58 L MPV 10.4 Sodium 134 L Potassium 3.8 Chloride 103 Carbon Dioxide 21 Anion Gap 10.0 BUN 12 Creatinine 0.43 L Est Cr Clr Drug Dosing 156.6 Est GFR ( Amer) 141.2 Est GFR (Non-Af Amer) 121.9 BUN/Creatinine Ratio 26.9 H Glucose 96 Calcium 8.6 PG Care Time/CCT Total # of Minutes Spent Total Time Spent with Patient: Total time spent is greater than 50% in coordination of care (as documented) at patient's floor/unit and/or counseling patient: Coding Level of Care Code 27185 Subseq Hosp Care Lvl 2 Diagnoses Thrombocytopenia D69.6 Left leg DVT I82.402 Hypercalcemia E83.52 Anemia D64.9 Acute metabolic encephalopathy G93.41 Catheter-associated urinary tract infection T83.511A; N39.0 Acute urinary retention R33.8 Weakness R53.1 Prostate cancer metastatic to bone C61; C79.51 Fecal impaction K56.41 Pancytopenia D61.818 Hypokalemia E87.6 Severe protein-calorie malnutrition E43 DVT prophylaxis Z29.9
[2021-06-03] MEDS: oxyCODONE HCL IR 5 MG TAB (IMMEDIATE RELEASE) PO PRN ×3 (02:17→14:35)
[2021-06-03 08:13] LABS: Hematocrit (blood only) 26.2 % (42-52); Hemoglobin 8.8 g/dL (14.0-18.0); Mean Corpuscular Hemoglobin 28.7 pg (25-34); Mean Corpuscular Hgb Conc 33.6 g/dL (32-36); Mean Corpuscular Volume 85.3 fL (80-100); RDW Coefficient of Variation 16.2 % (11.5-14.5); RDW Standard Deviation 50.9 fL (36.4-46.3); Red Blood Count 3.07 M/uL (4.7-6.1); White Blood Count 3.93 K/uL (4.8-10.8)
[2021-06-03 08:17] LABS: Mean Platelet Volume 9.1 fL (7.4-10.4); Platelet Count 49 K/uL (130-400)
[2021-06-03 08:34] LABS: BUN Creatinine Ratio 23.1 (10-20); Calcium 8.6 mg/dl (8.5-10.1); Creatinine Clr Calc Pharmacy 149.7 ml/min; Est GFR (African American) 138.6 ml/min; Est GFR (Non-African American) 119.6 ml/min; Potassium 3.9 mmol/L (3.5-5.1)
[2021-06-03] MEDS: GABAPENTIN 100 MG CAP PO SCH ×2 (08:49→13:42)
[2021-06-03] MEDS: POLYETHYLENE (MIRALAX) 17 GM PACK PO SCH (08:49)
[2021-06-03] MEDS: cephALEXin 500 MG CAP PO SCH (08:49)
[2021-06-03] MEDS: DOCUSATE SODIUM/SENNA 50/8.6MG TAB PO SCH (08:55)
[2021-06-03] MEDS ORDERED: ENOXAPARIN 100 MG/1ML SYR SQ SCH (09:00)
--- NOTE | 2021-06-03 17:09 | Discharge Summary ---
Date of Service date of admission - May 27, 2021 date of discharge - June 03, 2021 Admission HPI Per Admitting Provider Corey Suresh is a 66 year old male who presents to the ER on the advice of his oncologist due to hypercalcemia on routine outpatient labs. History is taken from his daughter at bedside due to the patient's altered mental status. He has routine lab work twice a week with oncology. Calcium 13.9 mg/dL which when corrected for albumin is 15.2 mg/dL. His daughter reports he has gone significantly downhill since surgery for left humeral fracture and to prevent left femur fracture on April 15, 2021 at [facility]. She reports he was hospitalized for 3 weeks requiring 3 sessions of temporary dialysis due to acute renal failure. Main symptoms of fatigue, confusion which is significantly progressed in the last few days and he has been collapsing while trying to get up. At the end of his hospitalization on May 06 he was unable to pass voiding trials therefore Serrato catheter was placed. He was followed up by urology 3 days ago for catheter change and ongoing management of urine retention. He is currently undergoing aggressive prostate cancer treatment with Orgovyx and Xtandi. He was previously taking Xgeva but developed osteonecrosis of the jaw after a dental procedure for tooth abscess. He reportedly restarted Xgeva this summer but discontinued due to hypercalcemia per daughter's recollection. In the ER he was started on normal saline 1L bolus and referred to medicine for admission ongoing management of hypercalcemia. Principal Diagnosis 1. metabolic encephalopathy - likely 2nd to hypercalcemia and serrato-catheter associated UTI 2. hypercalcemia 3. left lower extremity DVT 4. thrombocytopenia Discharge Exam gen - awake, alert, oriented x 3, pleasant; thin mouth - no thrush, MMM neck - no JVD heart - RRR, s1 s2, no murmur lungs - CTA b/l abd - soft, nontender, BS+, no HSM ext - no edema, pulses 2+ b/l psych - oriented x 3 skin - pallor, no petechiae; incisions over left lateral hip intact/clean; incision left anterior shoulder - slight dehiscence in the mid-section of the wound, scant serosanguinous drainage but no purulence Discharge Data Allergies Allergy/AdvReac Type Severity Reaction Status Date / Time levothyroxine Allergy Severe Swelling Verified 05/27/21 15:01 of Lip/Tongue/Throat Consultations Oncology - Chucho Smith DO / Ruby Messina MD PT OT Procedures Performed 2 units PRBCs Ordered Studies Chest X-Ray 05/27/21 14:08 XR chest 1V portable CLINICAL HISTORY: hypoxia TECHNIQUE: Single frontal radiograph of the chest was obtained. Comparison: Comparison is made to chest one view 10/03/2020 FINDINGS: No lines and tubes are seen. The cardiomediastinal silhouette is normal. Diffuse interstitial thickening is seen in the lungs. There are new opacities in the bilateral upper lobes. No evidence of pleural effusion or pneumothorax. Diffuse osteoblastic disease is again seen. IMPRESSION: Redemonstration of interstitial thickening in the lungs. There is new opacity in the bilateral upper lungs which may represent atelectasis, pneumonia, or aspiration. Diffuse osteoblastic disease is again seen. ACT 112: Negative or not required by law. Electronically signed by: Jassi Diehl M.D. 05/27/2021 3:36 PM Abdomen/Pelvis CT 05/27/21 15:40 CT abd pelvis wo con CLINICAL HISTORY: Flank pain. Evaluate for hydronephrosis, pyelonephritis, stone COMPARISON STUDY: 10/04/2020 CT DOSE: 533.81 mGy.cm TECHNIQUE: Standard CT of the Abdomen and Pelvis was performed without IV contrast. The patient did not receive oral contrast. A dose lowering technique was utilized adhering to the principles of ALARA. FINDINGS: Lung base: Compared to previous examination, there is now only a small right pleural effusion and minimal pleural thickening on the left. No confluent alveolar opacities or bronchograms are seen. There has been interval increase in blastic metastases throughout this the spine and ribs with numerous pathologic fractures now present bilaterally. There is no evidence for pneumothorax. Abdominal cavity: Compared to previous examination, extensive para-aortic, retroperitoneal or mesenteric adenopathy is again seen. There is no evidence for abdominal ascites or focal abdominal mass. Liver: The liver is enlarged and heterogeneous in attenuation on these limited noncontrast images. There is evidence for multiple foci of abnormal attenuation characteristic of diffuse metastatic disease to the liver.. Spleen: The spleen is homogeneous in attenuation on these limited noncontrast images. Pancreas: The pancreas is homogeneous in attenuation on these limited noncontrast images. Gall Bladder: The gallbladder is well distended with no evidence for cholelithiasis, wall thickening or pericholecystic edema.. Adrenal glands: The adrenal glands are normal in size and attenuation on these limited noncontrast images. Kidneys: The kidneys are homogeneous in attenuation on these limited noncontrast images. There is no evidence for gross renal mass, calculus or hydronephrosis bilaterally. Bowel: The small bowel bowel loops are normally placed within the abdomen and pelvis without evidence for dilatation or obstruction. There is mild to moderate fecal impaction and mild to moderate fecal stasis without evidence for dilatation or gross obstruction. There are no inflammatory changes present. There is no evidence for free air. Bladder: The bladder is distended despite the presence of a Serrato catheter. Air is present within the bladder most likely related to placement of the catheter. : There is no evidence for pelvic mass or adenopathy. Vasculature: There is no evidence for focal aneurysmal dilatation of the abdominal aorta. Osseous structures: Marked blastic metastases are seen throughout the pelvis, hips and spine as well. No other definite pathologic fractures are identified. There are remote anterior wedge deformities of the lower thoracic spine. IMPRESSION: 1. No evidence for renal calculus or hydronephrosis. 2. Mild to moderate fecal impaction and mild to moderate fecal stasis without evidence for colonic dilatation or obstruction. 3. Interval development of hepatomegaly and diffuse liver metastases. 4. Marked blastic metastases throughout the spine, pelvis, hips and ribs with multiple pathologic rib fractures seen. No other pathologic fractures are identified. 5. Extensive periaortic, retroperitoneal and mesenteric adenopathy are again seen. 6. No other evidence for acute intra-abdominal or pelvic abnormality on these limited noncontrast images. ACT 112: Negative or not required by law. Electronically signed by: Cj Quinn M.D. 05/27/2021 4:[address] 05/28/21 10:53 CT head/brain wo con CLINICAL HISTORY: prostate ca; h/o brain mets; altered MS Technique: Contiguous axial CT images of the head were acquired from the base of the skull to the vertex without intravenous contrast administration. Images were viewed in brain, subdural and bone windows. Automated dose lowering techniques and/or adjustment according to patient size were utilized for this exam. Comparison: None available at the time of this dictation. Findings: The ventricles, basal cisterns, and cerebral sulci are normal. There is no acute intracranial hemorrhage or evidence of acute territorial infarction. Neither mass effect, shift of the midline structures, nor abnormal extra-axial fluid collections are shown. Imaged portions of the paranasal sinuses and mastoid air cells are clear. The orbits appear normal. There are no acute fractures of the calvaria or scalp swelling. Impression: No acute intracranial hemorrhage, no evidence of acute territorial infarction or other acute intracranial disease process. ACT 112: Negative or not required by law. Electronically signed by: Jassi Diehl M.D. 05/28/2021 11:23 AM Venous Doppler Study 06/01/21 12:47 ULTRASOUND BILATERAL LOWER EXTREMITY VENOUS CLINICAL HISTORY: Elevated d-dimer. Prostate cancer COMPARISON STUDY: No priors. TECHNIQUE: Real-time, grayscale, and color Doppler sonography of the deep veins of the right and left lower extremity was performed from the inguinal crease to the calf. Compression and augmentation were utilized. FINDINGS: Right lower extremity: There is no sonographic evidence of deep venous thr ombosis in the right lower extremity. The common femoral, superficial femoral, and popliteal veins are patent and normally compressible. The greater saphenous vein and the profunda femoris vein at the junction with the common femoral vein are clear. The visualized calf veins are patent. Left lower extremity: There is nonocclusive deep venous thrombosis in the left common femoral vein. The superficial femoral and popliteal veins are patent and normally compressible. The greater saphenous vein and the profunda femoris vein at the junction with the common femoral vein are clear. The visualized calf veins are patent. IMPRESSION: 1. There is nonocclusive deep venous thrombosis in the left common femoral vein. 2. The remaining deep veins of the left lower extremity are clear. 3. There is no sonographic evidence of deep venous thrombosis in the right lower extremity. ACT 112: Negative or not required by law. Electronically signed by: Pa Ewing M.D. 06/01/2021 3:11 PM Hospital Course (1) Hypercalcemia: 2nd to prostate cancer with bone mets. Severe. Peak total calcium level was 13.9. The hypercalcemia led to significant metabolic encephalopathy. Patient underwent pamidronate infusion at admission along with SC calcitonin and IV fluids. He received calcitonin 2 additional times for a total 3 doses while here. Lasix was also administered. PTH-related peptide was sent and pending at time of discharge. Intact PTH was low. Total calcium levels were 8.5 to 8.6 in the three days leading up to discharge. He should have a repeat calcium level within 1 week of discharge to ensure stability. He should stop all calcium and vitamin D supplements for now. (2) Acute metabolic encephalopathy: resolved. likely due to combination of hypercalcemia + UTI. his mental status gradually returned to normal as the hypercalcemia resolved and the UTI was treated. CT head neg. ammonia level neg. (3) Thrombocytopenia: Patient's platelet counts had trended down over a 2-week period prior to admission. Had been 110-120 range, and steadily decreased to low of about 50 during this hospitalization. Peripheral smear w/o features of TTP. No clumping noted on smear. DIC w/u - coags, dimer, fibrinogen, etc NOT c/w DIC. MARKED elevation in d-dimer -- dopplers obtained of legs, positive for DVT of LLE. Discussed the low platelet problem with Dr Chucho Smith, pt's primary oncologist. Low platelets was perhaps a combination of bone marrow infiltration of his cancer as well as possible consumption of platelets in the setting of acute LLE DVT. Recent b12/folate wnl. Platelet count ranged 47-58 in the 3-4 days leading up to discharge. See below in #4 regarding his DVT and Rx for such. Repeat cbc within 1 week of discharge needed to ensure platelets are remaining stable. (4) Left leg DVT: common femoral vein DVT of LLE seen on dopplers. discussed anticoagulation options with Dr Smith - will use lovenox 1.5mg/kg/day to start (100mg daily). low platelets will need to be watched very carefully. no evidence of PE clinically (no respiratory symptoms, o2 sats high 90s in RA, etc during the stay). Patient received lovenox technique teaching prior to discharge. spoke with Parisa his significant other -- family is comfortable with lovenox as well. There certainly is a possibility of him transitioning over to an oral agent shortly after discharge. Defer to his primary oncologist. He will need a repeat CBC within 1 week of discharge. Also recommended an anti- Xa level in about 5 days post-discharge to ensure lovenox levels are therapeutic. Low threshold to d/c anticoagulation entirely if platelet count continues to fall or he has overt bleeding from any location. (5) Anemia: multifactorial but his advanced cancer likely the largest culprit. s/p 2 units PRBCS transfused this admission with improved/stable H/H since the transfusion. discharge hemoglobin was 8.8. (6) Catheter-associated urinary tract infection: 2nd klebsiella. cont keflex 500mg BID x 10 days post-discharge. he could easily have concomitant prostatitis; SAKSHI deferred while here, however. (7) Acute urinary retention: At time of admission the patient had a serrato catheter in place. This had been exchanged in the [facility] [place] [place] in the week leading up to admission. I spoke with [facility] - a voiding trial was offered to the patient on day of discharge. The serrato was indeed removed. Unfortunately the patient could not spontaneously void. Thus, a new serrato was placed on 06/03/21. f/u with [facility] for ongoing serrato management. (8) Weakness: Suspect multifactorial. High calcium likely the largest instigator. PT/OT evals completed - they stated patient could return home as long as 08/01 support was available. patient was discharged to home with 2 of his children and additional help from his significant other. (9) Prostate cancer metastatic to bone: Progressive disease despite anti-androgen therapy. Had been receiving Xtandi and Orgovyx - these were stopped while here, and he was advised to not continue them upon return home (this was Dr Smith's recommendation). Now has mets to his lymph nodes and liver. Very poor prognosis. Patient is enrolled in a clinical trial at [facility]. he is to receive his first treatment in early June 2021. uncertain if he can tolerate those treatments given his failure to thrive, etc. [id number] he is going to attempt initial enrollment in this clinical trial. He will f/u with Dr Smith post-discharge. of note - PSA this admission was 329. (10) Fecal impaction: Secondary to opiate use and hypercalcemia resolved Cont Bowel maintenance upon discharge (11) Pancytopenia: etiology? b12/folate wnl. TSH mildly high c/w mild hypothyroidism - this could be contributing. however, h/o allergy to levothyroxine? thus, thyroid replacement not pursued. 2nd to bone marrow infiltration by his cancer? this was the leading cause as suggested by oncology. very poor prognostic indicator. (12) Hypokalemia: replaced and resolved (13) Severe protein-calorie malnutrition: >10% weight loss over last few months 2nd to advanced prostate ca (14) DVT prophylaxis: lovenox - as noted above (15) Restless legs: gave pramipexole while hospitalized - was effective. thus, prescribed this medication at discharge. (16) Pain syndrome, chronic: patient had been taking oxycontin 20mg TID prior to admission. this was held during much of this hospitalization due to severe lethargy. when mental status improved we had a discussion about his pain meds. due to bone pain from the prostate cancer he wished to resume the pain meds albeit at a lower dose - 10mg TID. 14-day supply of oxycontin 10mg TID given to him at discharge. low threshold to resume his prior 20mg TID, however. close f/u with oncology & palliative care recommended to track his pain. (17) Shoulder wound: the patient has a healing wound over the left upper arm near the shoulder. the wound is from a prior orthopedic surgery to surgically repair his broken humerus. during this stay he was noted to have slight/scant dehiscence in the middle portion of the wound. there was no purulence or cellulitis. this will need to be watched carefully - further decline in the health of this wound is possible. optifoams to the site advised. Home Health Attestation I certify that this patient is under my care and that I, or a physician�s retail assistant manager working with me, had a face to-face encounter that meets the home health [id number] encounter requirements with this patient. The encounter with the patient was in whole, or in part, for the following medical condition, which is the primary reason for home health care (list medical condition): I certify that, based on my findings, the following services are medically necessary home health services: My clinical findings support the need for the above services because: OT Assess ADL Status and Restore Function w ADLs PT Assessment for Endurance / Balance / Strength Skilled Nsg Assessment Further, I certify that my clinical findings support that this patient is homebound (i.e. absences from home require considerable and taxing effort and are for medical reasons or mandaeism services or infrequently or of short duration when for other reasons) because: Certification for Home Health Services: Based on the above findings, I certify that this patient is confined to the home and needs intermittent alf care, physical therapy and/or speech therapy or continues to need occupational therapy. The patient is under my care, and I have initiated the establishment of the plan of care. This patient will be followed by a physician who will periodically review the plan of care. Total Time Total Time Spent Total Time Spent (In Minutes): 60 Discharge Plan Discharge Items Patient Disposition: Home - Home Health Services Reason For Visit: HYPERCALCEMIA (High Calcium Level) Discharge Diagnosis: 1. Hypercalcemia - resolved. Likely due to prostate cancer. 2. Urinary tract infection. 3. Low platelets - likely due to prostate cancer affecting the bone marrow +/- Left Leg DVT. 4. Left leg DVT. 5. Metastatic prostate cancer. 6. Confusion/lethargy - due to #1 and #2 - resolved. CT head negative for stroke, blood or cancer. 7. Recent left humerus and left hip surgeries. Activity: Resume your previous activity Non-emergency contact: Primary Care Provider Call non-emergency contact if: you have any medication questions, your symptoms worsen, your pain is not controlled, your pain is worsening, you have a fever, your wound has increased redness and your wound has increased drainage Follow-up/Referrals: Chucho Smith DO [Physician] - (see Dr Smith within 1-2 weeks ) Yehuda Carrera DO [Primary Care Provider] - (see your family doctor within 1 week) Diet: Regular Ambulatory Orders: Complete Blood Count with Diff (Timed) Timeframe: 20210608 Location: Determined by Patient Ordered By: Ted Moses Comprehensive Metabolic Panel (Routine) Timeframe: 20210608 Location: Determined by Patient Ordered By: Ted Moses Add Attending Provider Instructions: Mr Suresh, You were admitted to the hospital for lethargy, confusion, and very high calcium levels. Your high calcium levels were treated with IV fluids, IV pamidronate infusion, calcitonin, and diuretics. With time your calcium levels normalized (total calcium level on 06/03 is 8.6). As your calcium levels trended to normal and your UTI was treated the lethargy and confusion improved. Your UTI was treated with IV antibiotics followed by oral cephalexin. In addition, your platelets and hemoglobin red cells were low. You did need 2 units of blood while here. Your platelets have settled out at about 50-60. While trying to determine the cause of your low platelets we discovered that you had a blood clot in your left leg. This is likely due to your cancer, your recent surgeries, and difficulty moving as normal. We are treating your DVT blood clot with "lovenox" (enoxaparin shots). Dr Smith has seen you in consult and has recommended the following - * Stop your Orgovyx and Xtandi * Start enoxaparin injections - 100mg once daily every morning, first dose tomorrow on 06/04 at about 9-10am * Prescription sent to [facility] for you * Blood work this coming 06/08/21 - labs are as follows - * CBC with differential * Complete Metabolic Panel (CMP) * Anti-Xa level (to monitor your lovenox injection) Please note that the best time for the blood work on 06/08 would be ABOUT 4 HOURS AFTER YOU TAKE YOUR LOVENOX INJECTION THAT MORNING. * Follow-up with Dr Smith shortly after [place] For your urinary tract infection - * cephalexin 500mg twice daily for 10 days, first dose tonight * you can take an [id number] probiotic over that 10-day period as desired For restless legs you can take - * pramipexole 0.25mg at bedtime as needed; prescription sent to [facility] for you For pain related to your cancer - * extended release oxycodone 10mg three times a day * I sent a new prescription for a 14-day supply to [facility] in [place] for you For low blood protein levels - * boost or ensure twice daily as tolerated For the heel ulcer on the left foot - * apply an "optifoam" or similar style dressing to the ulcer; can change every other day * when napping or sleeping or resting for long periods of time you can use the Waffle boots on your feet to help protect your heels For the incisions from your recent L humerus and L hip surgeries - * optifoam dressings every other day as needed to protect them, if necessary Continue normal serrato catheter care as previous. Follow-up - see separate section Return to [facility] if - * you develop fevers over 100 degrees * you have worsening, uncontrolled pain in any location * you are short of breath * you have confusion or worsening lethargy * you have bleeding from any location * you are concerned about your left heel ulcer, your incision sites, etc * any other concerns It was our pleasure to care for you at [facility]! Happy Holidays to you and your family, Dr Josué Lazcano Branding Specialist Provider Instructions: Anticoagulant (blood thinner) Medication Instructions: Your left leg DVT blood clot condition is typically treated with an anticoagulant. Anticoagulants will thin your blood to help prevent new clots. Your blood thinner is "lovenox" (enoxaparin) 100mg once daily every morning. * You should take the medication exactly as directed. * Never skip a dose. * Never take a double dose. If you miss a dose, take it as soon as you remember. Call your Primary Care doctor or your cancer doctors if you experience any of the following: * Swelling or Pain in your leg * Sudden, continuous pain deep in a muscle * Pain that worsens when you are active or when you stand still for a long time * Chest Pain * Sudden Shortness of Breath * Rapid or pounding heart beat * Fainting * Dizziness * Cough with blood or bloody sputum * Sweating more than normal * Bruises * Heavy or uncontrolled bleeding * Blood in your urine, stool or vomit * Black or tarry stools * heavy nose bleeding Caring for Your Self at Home: * Avoid sitting, standing or lying down for long periods without moving your legs and feet * When traveling by car, stop to get out and move around at least once every 3 hours * On long airplane, train or bus rides, get up and move around when possible * If you can't get up, wiggle your toes and tighten your calves to keep your blood moving Pending Studies at Discharge: No Stand-Alone Forms: My [facility], Smoking Cessation Medications and DC Order Prescriptions: New cephalexin 500 mg Capsule 500 mg PO BID 10 Days Qty: 20 RF: 0 enoxaparin 100 mg/mL Syringe 100 mg subcut QAM Qty: 30 RF: 2 pramipexole 0.25 mg Tablet 0.25 mg PO HS PRN (Reason: restless legs) Qty: 30 RF: 0 oxycodone 10 mg tablet,oral only,ext.rel.12 hr 10 mg PO TID 14 Days Qty: 42 RF: 0 Continued tamsulosin 0.4 mg capsule 0.4 mg PO DAILY Qty: 30 RF: 5 gabapentin 100 mg Capsule 100 mg PO TID RF: 0 folic acid 400 mcg Tablet 400 mcg PO QPM RF: 0 ferrous sulfate 325 mg (65 mg iron) Tablet 325 mg PO QPM RF: 0 vitamin N30-hzzgy acid 500-400 mcg Tablet 1 tab PO QPM RF: 0 ondansetron HCl [Zofran] 4 mg Tablet 4 mg PO Q8H RF: 0 mirtazapine 15 mg Tablet 15 mg PO HS RF: 0 cholecalciferol (vitamin D3) [Vitamin D3] 25 mcg (1,000 unit) Tablet 25 mcg PO DAILY RF: 0 Changed hydromorphone 4 mg Tablet 4 mg PO Q6H PRN (Reason: Pain) Qty: 0 RF: 0 Discontinued Xtandi 40 mg Tablet 160 mg PO HS RF: 0 Orgovyx 120 mg Tablet 120 mg PO QPM RF: 0 terazosin 5 mg Capsule 0 mg PO DAILY RF: 0 oxycodone [OxyContin] 20 mg Tablet,Oral Only,Ext.Rel.12 Hr 20 mg PO TID RF: 0 Discharge Orders: Discharge Order (Routine); Ordered 06/03/21 Ordered By: Ted Moses Admission Data Admit Date/Time: 05/27/21 15:28 Attending Provider: Ted Moses Admit Provider: Ted Iraheta Primary Care Provider: Yehuda Carrera Other Providers: Ted Iraheta ; Ruby Messina ; [facility],Referral [facility] ; Chucho Smith V. Other Interventions: Discharge Summary Assessment (RN) Last Done: 06/03/21 17:22 Coding Level of Care Code D/C DAY MANAGEMENT >30 MINS Diagnoses Thrombocytopenia D69.6 Left leg DVT I82.402 Hypercalcemia E83.52 Anemia D64.9 Acute metabolic encephalopathy G93.41 Catheter-associated urinary tract infection T83.511A; N39.0 Acute urinary retention R33.8 Weakness R53.1 Prostate cancer metastatic to bone C61; C79.51 Fecal impaction K56.41 Pancytopenia D61.818 Hypokalemia E87.6 Severe protein-calorie malnutrition E43 DVT prophylaxis Z29.9 Restless legs G25.81 Pain syndrome, chronic G89.4 Shoulder wound S41.009A
[2021-06-03] MEDS ORDERED: LIDOCAINE 2% JELLY 5 ML TUBE EXT STA (17:32)
[2021-06-06 09:12] LABS: PTH Related Protein 12 pg/mL (11-20); Vitamin D3,1,25 DNR pg/mL
== END 2021-06-03 19:08 | disposition home health service (06) | DRG 640 ==
LOC: ED 12:32 → SUATTDRO 15:28 → EDINP 15:28 → 2S 16:00 → 2N 05-29 10:09
DX: Y83.8 Other surgical procedures as the cause of abnormal reaction of the patient, or of later complication, without mention of misadventure at the time of the procedure; Y73.2 Prosthetic and other implants, materials and accessory gastroenterology and urology devices associated with adverse incidents; Z79.891 Long term (current) use of opiate analgesic; Z66 Do not resuscitate; C77.9 Secondary and unspecified malignant neoplasm of lymph node, unspecified; T83.511A Infection and inflammatory reaction due to indwelling urethral catheter, initial encounter; I95.9 Hypotension, unspecified; E87.6 Hypokalemia; C78.7 Secondary malignant neoplasm of liver and intrahepatic bile duct; D63.0 Anemia in neoplastic disease; B96.1 Klebsiella pneumoniae [K. pneumoniae] as the cause of diseases classified elsewhere; N39.0 Urinary tract infection, site not specified; E83.52 Hypercalcemia; D61.818 Other pancytopenia; C79.51 Secondary malignant neoplasm of bone; T40.605A Adverse effect of unspecified narcotics, initial encounter; E43 Unspecified severe protein-calorie malnutrition; C61 Malignant neoplasm of prostate; Z79.899 Other long term (current) drug therapy; E86.0 Dehydration; I82.412 Acute embolism and thrombosis of left femoral vein; R33.9 Retention of urine, unspecified; K56.41 Fecal impaction; G25.81 Restless legs syndrome; R53.1 Weakness; T81.31XA Disruption of external operation (surgical) wound, not elsewhere classified, initial encounter; G93.41 Metabolic encephalopathy; G89.4 Chronic pain syndrome; Z88.8 Allergy status to other drugs, medicaments and biological substances; Z68.23 Body mass index [BMI] 23.0-23.9, adult